=== PATIENT | male | born 1945 | race Caucasian/White ===

== ENCOUNTER → 2018-10-23 10:58 | Outpatient (CLI) | payer MEDICARE, SELFPAY ==
[2018-10-23 17:25] LABS: Absolute Lymphocyte Count 1.87 X10^3/ul (0.83-4.51); Absolute Neutrophil Count 5.1 X10^3/uL (2.0-7.7); Basophil# 0.04 X10^3/uL; Basophil% 0.5 % (0-1); Eosinophil# 0.29 X10^3/uL; Eosinophils% 3.6 % (0-5); Hematocrit 41.7 % (40-54); Hemoglobin 13.2 g/dl (13.0-16.5); Lymphocyte # 1.87 X10^3/ul (4.0); Lymphocyte % 23.4 % (19-41); Mean Corp Hgb Conc 31.7 g/gl (32-36); Mean Corpuscular Hgb 29.5 pg (27.0-32.0); Mean Corpuscular Volume 93.3 fL (80-94); Mean Platelet Vol. 9.2 fl (6.2-12.0); Monocyte# 0.69 X10^3/uL; Monocyte% 8.6 % (0-10); Neutrophil % 63.8 % (47-70); Platelet Count 305 K/mm3 (150-450); RBC Distribution Width CV 14.3 % (11.6-14.6); RBC Distribution Width SD 48.6 fl (35.1-43.9); Red Blood Count 4.47 M/mm3 (4.6-6.2)
[2018-10-23 17:29] LABS: POSITIVE COUNT NO; POSITIVE DIFFERENTIAL NO; POSITIVE MORPHOLOGY NO
[2018-10-23 17:39] LABS: ALB/GLOB Ratio 0.9 RATIO (0.9-2.4); AST(SGOT) 16 U/L (15-37); Alanine Aminotransfer ALT/SGPT 21 U/L (16-61); Albumin, Serum 3.8 g/dL (3.2-5.0); Alkaline Phosphatase 72 U/L (45-117); Anion Gap 11 (5-15); BUN 23 mg/dL (7-18); BUN/Creat Ratio 16.2 RATIO (10-20); Chloride 104 mmol/L (98-107); Cholesterol 183 mg/dL (200); Creatinine, Serum 1.42 mg/dL (0.70-1.30); EST Glomerular Filtration Rate 52 mL/min (>60); Est Glom Filt Rate - Afr Amer 63 mL/min (>60); Globulin 4.2 g/dL (2.2-4.2); Glucose 85 mg/dL (74-106); High Density Lipoprotein 42 mg/dL; Potassium 3.9 mmol/L (3.5-5.1); Sodium Level 139 mmol/L (136-145); Triglycerides 137 mg/dL; Very Low Density Lipoprotein 27 mg/dL (5-40)
== END ==
PROVIDERS: Family Provider Family Medicine; PCP Family Medicine; Visit Provider Family Medicine
DX: Z00.00 Encounter for general adult medical examination without abnormal findings (principal); I10 Essential (primary) hypertension
CPT/HCPCS: 36415; 80053; 80061; 85025

== ENCOUNTER → 2019-10-24 09:11 | Outpatient (CLI) | payer MEDICARE, SELFPAY ==
[2019-10-24 12:18] LABS: Absolute Neutrophil Count 4.8 X10^3/uL (2.0-7.7); Basophil# 0.09 X10^3/uL; Basophil% 1.1 % (0-1); Eosinophil# 0.39 X10^3/uL; Eosinophils% 4.9 % (0-5); Hematocrit 40.5 % (40-54); Hemoglobin 13.1 g/dL (13.0-16.5); Lymphocyte % 22.4 % (19-41); Mean Corp Hgb Conc 32.3 g/dL (32-36); Mean Corpuscular Hgb 29.8 pg (27.0-32.0); Mean Platelet Vol. 8.7 fl (6.2-12.0); Monocyte# 0.92 X10^3/uL; Monocyte% 11.5 % (0-10); NRBC Flagged by Analyzer 0 % (0-5); Neutrophil % 59.9 % (47-70); Platelet Count 323 K/mm3 (150-450); RBC Distribution Width CV 13.5 % (11.6-14.6); RBC Distribution Width SD 45.6 fl (35.1-43.9)
[2019-10-24 13:04] LABS: ALB/GLOB Ratio 0.9 RATIO (0.9-2.4); AST(SGOT) 18 U/L (15-37); Alanine Aminotransfer ALT/SGPT 25 U/L (16-61); Albumin, Serum 3.8 g/dL (3.2-5.0); Alkaline Phosphatase 70 U/L (45-117); Anion Gap 8 (5-15); BUN 30 mg/dL (7-18); BUN/Creat Ratio 20.5 RATIO (10-20); Calcium,Total 9.5 mg/dL (8.5-10.1); Chloride 102 mmol/L (98-107); Creatinine, Serum 1.46 mg/dL (0.70-1.30); EST Glomerular Filtration Rate 50 mL/min (>60); Est Glom Filt Rate - Afr Amer 60 mL/min (>60); Globulin 4.4 g/dL (2.2-4.2); Glucose 87 mg/dL (74-106); Potassium 4.1 mmol/L (3.5-5.1); Protein, Total 8.2 g/dL (6.4-8.2); Sodium Level 136 mmol/L (136-145)
== END ==
PROVIDERS: PCP Family Medicine; Visit Provider Family Medicine
DX: N18.3 Chronic kidney disease, stage 3 (moderate) (principal); K22.2 Esophageal obstruction
CPT/HCPCS: 36415; 80053; 85025

== ENCOUNTER → 2020-01-17 07:55 | Outpatient (CLI) | payer MEDICARE, SELFPAY ==
--- NOTE | 2020-01-17 08:10 | RAD_ITS ---
STUDY: X-RAY - ESOPHAGUS (BARIUM SWALLOW) WITH FLUOROSCOPY REASON FOR EXAM: Male, 74 years old. DYSPHAGIA X6-7 YEARS AND GETTING WORSE -- HX STOMACH SURGERY WITH SURGERY 1978 -- 16 FLUORO IMAGES, 31 FLUORO SEC, 11.17mGy TECHNIQUE: 60 view(s) of the esophagus were obtained following swallowing of barium. FLUOROSCOPY TIME (if supplied): (0:31) minutes/seconds COMPARISON: None. FINDINGS: There is no demonstrated esophageal foreign body. There is evidence of a small sliding hiatal hernia without gastroesophageal reflux. There is a weblike stenosis at the gastroesophageal junction. The patient ingest a 12 mm tablet of barium. The tablet is trapped at the gastroesophageal junction at the level of the weblike stenosis. Surgical clips are seen in the right upper quadrant and epigastric region. There is atherosclerotic calcification of the aortic arch with tortuosity of the descending aorta. Normal visualized pulmonary parenchyma. Normal visualized osseous structures of the thorax. RAD/Esophagus Dual Contrast IMPRESSION: Weblike stenosis at the gastroesophageal junction with the trapping of a 12 mm tablet of barium at that site. Electronically Signed: Priyank Pleitez, at 10:00 EDT , Service support ,
== END ==
PROVIDERS: PCP Family Medicine; Referring Provider Internal Medicine Gastroenterology; Visit Provider Internal Medicine Gastroenterology
DX: R13.10 Dysphagia, unspecified (principal)
CPT/HCPCS: 74220; 74221

== ENCOUNTER → 2023-01-12 | Outpatient (CLI) | payer MEDICARE, SELFPAY ==
[2023-01-12 12:19] LABS: Absolute Lymphocyte Count 1.59 X10^3/uL (0.83-4.51); Absolute Neutrophil Count 4.2 X10^3/uL (2.0-7.7); Basophil# 0.06 X10^3/uL; Basophil% 0.9 % (0-1); Eosinophil# 0.26 X10^3/uL; Eosinophils% 3.7 % (0-5); Hematocrit 36.4 % (40-54); Hemoglobin 11.5 g/dL (13.0-16.5); Lymphocyte # 1.59 X10^3/ul (0.83-4.51); Lymphocyte % 22.7 % (19-41); Mean Corp Hgb Conc 31.6 g/dL (32-36); Mean Corpuscular Hgb 28.7 pg (27.0-32.0); Mean Corpuscular Volume 90.8 fL (80-94); Mean Platelet Vol. 9.3 fl (6.2-12.0); Monocyte# 0.83 X10^3/uL; Monocyte% 11.9 % (0-10); NRBC Flagged by Analyzer 0 % (0-5); Neutrophil # 4.19 X10^3/uL (2.7-7.7); Neutrophil % 59.8 % (47-70); Platelet Count 292 K/mm3 (150-450); RBC Distribution Width CV 14.7 % (11.6-14.6); RBC Distribution Width SD 49.1 fl (35.1-43.9); Red Blood Count 4.01 M/mm3 (4.6-6.2)
[2023-01-12 12:32] LABS: Vitamin B12 572 pg/mL (211-911)
[2023-01-12 12:43] LABS: Protein, Urine (Random) 19.7 mg/dL (<11.9); Protein:Creat Ratio 228 mg/g CRE (0-200)
[2023-01-12 12:48] LABS: ALB/GLOB Ratio 0.9 RATIO (0.9-2.4); AST(SGOT) 22 U/L (15-37); Alanine Aminotransfer ALT/SGPT 21 U/L (16-61); Albumin, Serum 3.7 g/dL (3.2-5.0); Alkaline Phosphatase 78 U/L (45-117); Anion Gap 9 (5-15); BUN 28 mg/dL (7-18); BUN/Creat Ratio 16.8 RATIO (10-20); Calcium,Total 9.4 mg/dL (8.5-10.1); Chloride 104 mmol/L (98-107); Creatinine, Serum 1.67 mg/dL (0.70-1.30); EST Glomerular Filtration Rate 42 mL/min (>60); Est Glom Filt Rate - Afr Amer 51 mL/min (>60); Ferritin 86 ng/mL (26-388); Globulin 4.2 g/dL (2.2-4.2); Glucose 95 mg/dL (74-106); Potassium 4.6 mmol/L (3.5-5.1); Protein, Total 7.9 g/dL (6.4-8.2); Sodium Level 137 mmol/L (136-145)
== END | disposition home or self-care (01) ==
LOC: BFHLAB 09:00
PROVIDERS: PCP Family Medicine; Referring Provider Family Medicine; Visit Provider Family Medicine
DX: Z00.00 Encounter for general adult medical examination without abnormal findings (principal); R53.83 Other fatigue; D64.9 Anemia, unspecified
CPT/HCPCS: 36415; 80053; 82570; 82607; 82728; 84156; 85025

== ENCOUNTER → 2023-01-25 | Outpatient (CLI) | payer MEDICARE, SELFPAY ==
--- NOTE | 2023-01-25 12:32 | US_ITS ---
EXAM: US RETROPERITONEAL LIMITED, RENAL CLINICAL INDICATION: CHRONIC KIDNEY DISEASE TECHNIQUE: Limited grayscale and color Doppler sonographic evaluation of the retroperitoneum was performed. COMPARISON: No relevant prior studies available. FINDINGS: RIGHT KIDNEY: Isoechoic cortex with respect to liver, normal variation versus medical renal disease. Right kidney is 10 cm x 5.2 cm x 5.3 cm with normal cortical thickness. Mild hydronephrosis, renal pelvis roughly 2 cm AP and mildly dilated calyces. LEFT KIDNEY: Isoechoic cortex. 10.9 cm x 5.9 cm x 5 cm. Mild hydronephrosis, renal pelvis roughly 1.3 cm AP. BLADDER: Moderately distended initially, 9.9 cm maximum diameter and calculated volume 302 cc. Mild to moderate postvoid bladder residual of 49 cc. Bilateral ureteral jets are seen in the bladder on color Doppler exam, evidence against a high-grade ureter obstruction. US/Kidney and Bladder IMPRESSION: Mild bilateral hydronephrosis, no change with voiding. Uncertain chronicity and etiology. Bilateral ureteral jets were demonstrated in the bladder, evidence against a high-grade ureter obstruction. Isoechoic renal cortex, nonspecific, normal variation versus medical renal disease. Normal renal size. Electronically Signed: Joseline Ramey MD at 5:39 EDT ,
== END | disposition home or self-care (01) ==
PROVIDERS: PCP Family Medicine; Referring Provider Internal Medicine Nephrology; Visit Provider Internal Medicine Nephrology
DX: N18.32 Chronic kidney disease, stage 3b (principal)
CPT/HCPCS: 76770

== ENCOUNTER → 2023-03-27 | Outpatient (CLI) | payer MEDICARE, SELFPAY ==
[2023-03-27 18:06] LABS: PSA,Total - Annual Screen 0.87 ng/mL (0.00-4.00)
== END | disposition home or self-care (01) ==
LOC: LAB 16:00
PROVIDERS: PCP Family Medicine; Referring Provider Urology; Visit Provider Urology
DX: Z12.5 Encounter for screening for malignant neoplasm of prostate (principal)
CPT/HCPCS: 36415; 84153; G0103

== ENCOUNTER → 2023-03-30 | Outpatient (CLI) | payer MEDICARE, SELFPAY ==
[2023-03-30 15:07] LABS: Hematocrit 34.2 % (40-54); Hemoglobin 10.9 g/dL (13.0-16.5); Mean Corp Hgb Conc 31.9 g/dL (32-36); Mean Corpuscular Hgb 29.1 pg (27.0-32.0); Mean Corpuscular Volume 91.2 fL (80-94); Platelet Count 298 K/mm3 (150-450); RBC Distribution Width CV 14.4 % (11.6-14.6); RBC Distribution Width SD 48.5 fl (35.1-43.9); Red Blood Count 3.75 M/mm3 (4.6-6.2); White Blood Count 7.4 K/mm3 (4.4-11.0)
[2023-03-30 15:37] LABS: Albumin, Serum 3.3 g/dL (3.2-5.0); BUN 33 mg/dL (7-18); BUN/Creat Ratio 15.6 RATIO (10-20); Chloride 106 mmol/L (98-107); Creatinine, Serum 2.11 mg/dL (0.70-1.30); EST Glomerular Filtration Rate 32 mL/min (>60); Est Glom Filt Rate - Afr Amer 39 mL/min (>60); Glucose 141 mg/dL (74-106); Sodium Level 139 mmol/L (136-145)
[2023-03-30 15:40] LABS: Protein, Urine (Random) < 6.0 mg/dL (<11.9); Protein:Creat Ratio 143 mg/g CRE (0-200)
[2023-03-30 15:43] LABS: Vitamin D,25 Hydroxy 63.8 ng/mL
[2023-03-31 07:29] LABS: PTHIN 19.5 pg/mL (18.4-80.1)
[2023-04-03 13:07] LABS: PROEL- A/G Ratio 1.1 (0.7-1.7); PROEL- Albumin 3.5 g/dL (2.9-4.4); PROEL- Alpha-1 Globulin 0.2 g/dL (0.0-0.4); PROEL- Alpha-2 Globulin 0.6 g/dL (0.4-1.0); PROEL- Beta Globulin 1.2 g/dL (0.7-1.3); PROEL- Gamma Globulin 1.1 g/dL (0.4-1.8); PROEL- Globulin, Total 3.2 g/dL (2.2-3.9); PROEL- TOTAL PROTEIN 6.7 g/dL (6.0-8.5)
== END | disposition home or self-care (01) ==
LOC: LAB 14:05
PROVIDERS: PCP Family Medicine; Referring Provider Internal Medicine Nephrology; Visit Provider Internal Medicine Nephrology
DX: N18.32 Chronic kidney disease, stage 3b (principal)
CPT/HCPCS: 36415; 80069; 82306; 82570; 83970; 84156; 84165; 85027

== ENCOUNTER → 2023-04-05 | Outpatient (CLI) | payer MEDICARE, SELFPAY ==
--- NOTE | 2023-04-05 07:51 | CT_ITS ---
STUDY: CT ABDOMEN AND PELVIS WITHOUT CONTRAST REASON FOR EXAM: Male, 78 years old. SCREENING PROSTATE. 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 Sagittal and coronal images were reconstructed. Individualized dose optimization techniques were used for this CT. COMPARISON: None. FINDINGS: Mild degree of increased linear markings at the right lung base suggest some mild scarring. Coronary artery calcification. Tiny calcified granuloma in the dome of the right lobe liver adjacent to the right hemidiaphragm. Surgical clips are seen along the anterior aspect of the liver adjacent to the right hemidiaphragm. The gallbladder is not visualized and most likely has been surgically resected. Normal spleen. Normal pancreas. Normal bilateral adrenal glands. Normal right kidney. Normal left kidney. Surgical clips are seen in the right perinephric region. There is a small hiatal hernia. Normal small intestine. There are scattered colonic diverticula consistent with diverticulosis. There are surgical clips in the region of the appendix consistent with a prior appendectomy. There is diffuse atherosclerotic calcification of the abdominal aorta, without a demonstrated aneurysm. Normal inferior vena cava. Surgical clips are seen along the right side of the retroperitoneum most likely secondary to prior lymph node dissection. This extends down into the renal hilus. Normal urinary bladder. The prostate measures 4 cm x 5.9 cm. This causes indentation at the bladder base. Normal abdominal wall. There are diffuse degenerative changes of the visualized lumbar spine. CT/Abdomen/Pelvis without Cont IMPRESSION: Findings suggestive of prior right retroperitoneal lymph node dissection. Surgical clips are also seen in the region of the right renal fossa. Prostatic enlargement. Electronically Signed: Priyank Pleitez MD at 14:12 EDT ,
== END | disposition home or self-care (01) ==
PROVIDERS: PCP Family Medicine; Referring Provider Urology; Visit Provider Urology
DX: Z12.5 Encounter for screening for malignant neoplasm of prostate (principal)
CPT/HCPCS: 74176

== ENCOUNTER → 2023-07-04 | Outpatient (CLI) | payer MEDICARE, SELFPAY ==
[2023-07-04 17:36] LABS: Absolute Lymphocyte Count 0.86 X10^3/uL (0.83-4.51); Absolute Neutrophil Count 6.1 X10^3/uL (2.0-7.7); Basophil# 0.05 X10^3/uL; Basophil% 0.6 % (0-1); Eosinophil# 0.07 X10^3/uL; Eosinophils% 0.9 % (0-5); Hematocrit 31.6 % (40-54); Hemoglobin 10.2 g/dL (13.0-16.5); Lymphocyte # 0.86 X10^3/ul (0.83-4.51); Lymphocyte % 11.1 % (19-41); Mean Corp Hgb Conc 32.3 g/dL (32-36); Mean Corpuscular Hgb 28.7 pg (27.0-32.0); Mean Corpuscular Volume 88.8 fL (80-94); Mean Platelet Vol. 9.9 fl (6.2-12.0); Monocyte# 0.68 X10^3/uL; Monocyte% 8.7 % (0-10); NRBC Flagged by Analyzer 0 % (0-5); Neutrophil # 6.09 X10^3/uL (2.7-7.7); Neutrophil % 78.3 % (47-70); Platelet Count 263 K/mm3 (150-450); RBC Distribution Width CV 14.5 % (11.6-14.6); RBC Distribution Width SD 46.9 fl (35.1-43.9); Red Blood Count 3.56 M/mm3 (4.6-6.2); White Blood Count 7.8 K/mm3 (4.4-11.0)
[2023-07-04 18:02] LABS: ALB/GLOB Ratio 0.9 RATIO (0.9-2.4); AST(SGOT) 15 U/L (15-37); Alanine Aminotransfer ALT/SGPT 21 U/L (16-61); Albumin, Serum 3.3 g/dL (3.2-5.0); Alkaline Phosphatase 72 U/L (45-117); Anion Gap 7 (5-15); BUN 38 mg/dL (7-18); BUN/Creat Ratio 18.8 RATIO (10-20); Calcium,Total 9.2 mg/dL (8.5-10.1); Chloride 109 mmol/L (98-107); Creatinine, Serum 2.02 mg/dL (0.70-1.30); EST Glomerular Filtration Rate 34 mL/min (>60); Est Glom Filt Rate - Afr Amer 41 mL/min (>60); Globulin 3.8 g/dL (2.2-4.2); Glucose 126 mg/dL (74-106); Potassium 4.1 mmol/L (3.5-5.1); Protein, Total 7.1 g/dL (6.4-8.2); Sodium Level 135 mmol/L (136-145)
== END | disposition home or self-care (01) ==
LOC: BFHLAB 14:29
PROVIDERS: PCP Nurse Practitioner Family; Referring Provider Nurse Practitioner Family; Visit Provider Nurse Practitioner Family
DX: R06.02 Shortness of breath (principal); N18.31 Chronic kidney disease, stage 3a
CPT/HCPCS: 36415; 80053; 85025

== ENCOUNTER → 2023-07-12 | Outpatient (CLI) | payer MEDICARE, SELFPAY ==
--- NOTE | 2023-07-12 11:36 | RAD_ITS ---
STUDY: X-RAY CHEST REASON FOR EXAM: Male, 78 years old. Shortness of breath. TECHNIQUE: Frontal and lateral views of the chest. COMPARISON: None. FINDINGS: Cardiomegaly, marked aortic tortuosity with calcification, prominent central pulmonary arteries, diffuse interstitial pattern with a basilar predominance and bilateral moderate-sized pleural effusions. Findings compatible with interstitial edema/congestive failure and follow-up chest imaging to resolution recommended. Multiple clips projected over the right upper abdomen. RAD/Chest PA and Lateral IMPRESSION: Findings compatible with interstitial edema/congestive failure and follow-up chest imaging to resolution recommended. Electronically Signed: Osiel Rain MD at 11:54 EST ,
== END | disposition home or self-care (01) ==
PROVIDERS: PCP Nurse Practitioner Family; Referring Provider Nurse Practitioner Family; Visit Provider Nurse Practitioner Family
DX: R06.02 Shortness of breath (principal)
CPT/HCPCS: 71046

== ENCOUNTER 2023-07-26 16:30 | Inpatient (IN) | payer MEDICARE, SELFPAY ==
[2023-07-26 16:32] VITALS: BP 100/65; PULSE 86; RESP 19; TEMP 36.2; O2SAT 94; BMI 24.3
--- NOTE | 2023-07-26 17:09 | NURSING ---
NO OLD EKGS
--- NOTE | 2023-07-26 18:10 | RAD_ITS ---
STUDY: X-RAY CHEST REASON FOR EXAM: Male, 78 years old. , CAMP[place]LL, bilateral rales, pedal edema and orthopnea TECHNIQUE: PA and lateral views of the chest. COMPARISON: 07/12/2023 FINDINGS: EKG leads project over the chest. Airspace disease in the bilateral lung bases are worse with increasing obscuration of the diaphragms and costophrenic angles. No pneumothorax. Normal size heart. Normal mediastinum and joe. There is atherosclerotic calcification of the aortic arch with tortuosity. There are diffuse degenerative changes of the visualized thoracic spine. There is no demonstrated abnormality of the visualized soft tissue structures of the upper abdomen. RAD/Chest PA and Lateral IMPRESSION: 1. Worse bibasilar airspace disease and pleural effusions. Electronically Signed: River Hdz MD ([place]) at 18:35 EST ,
[2023-07-26 18:25] LABS: Absolute Lymphocyte Count 0.53 X10^3/uL (0.83-4.51); Absolute Neutrophil Count 12.5 X10^3/uL (2.0-7.7); Basophil# 0.01 X10^3/uL; Basophil% 0.1 % (0-1); Eosinophil# 0.01 X10^3/uL; Eosinophils% 0.1 % (0-5); Hematocrit 32.1 % (40-54); Hemoglobin 10.4 g/dL (13.0-16.5); Lymphocyte # 0.53 X10^3/ul (0.83-4.51); Lymphocyte % 3.7 % (19-41); Mean Corp Hgb Conc 32.4 g/dL (32-36); Mean Corpuscular Hgb 27.7 pg (27.0-32.0); Mean Corpuscular Volume 85.6 fL (80-94); Mean Platelet Vol. 12.1 fl (6.2-12.0); Monocyte# 1.15 X10^3/uL; NRBC Flagged by Analyzer 0.6 % (0-5); Neutrophil # 12.49 X10^3/uL (2.7-7.7); Neutrophil % 87.3 % (47-70); POSITIVE DIFFERENTIAL YES; Platelet Count 124 K/mm3 (150-450); RBC Distribution Width CV 14.8 % (11.6-14.6); RBC Distribution Width SD 45.6 fl (35.1-43.9); Red Blood Count 3.75 M/mm3 (4.6-6.2); White Blood Count 14.3 K/mm3 (4.4-11.0)
[2023-07-26 18:28] LABS: Differential Indicated SCAN CRITERIA MET
[2023-07-26 18:44] LABS: Differential Comment SCANNED
[2023-07-26 18:56] LABS: ALB/GLOB Ratio 0.7 RATIO (0.9-2.4); AST(SGOT) 62 U/L (15-37); Alanine Aminotransfer ALT/SGPT 129 U/L (16-61); Albumin, Serum 2.8 g/dL (3.2-5.0); Alkaline Phosphatase 268 U/L (45-117); Anion Gap 11 (5-15); BUN 104 mg/dL (7-18); BUN/Creat Ratio 32.3 RATIO (10-20); Calcium,Total 8.6 mg/dL (8.5-10.1); Chloride 98 mmol/L (98-107); Creatinine, Serum 3.22 mg/dL (0.70-1.30); EST Glomerular Filtration Rate 20 mL/min (>60); Est Glom Filt Rate - Afr Amer 24 mL/min (>60); Glucose 127 mg/dL (74-106); Potassium 4.5 mmol/L (3.5-5.1); Protein, Total 6.8 g/dL (6.4-8.2); Sodium Level 134 mmol/L (136-145); Troponin-I HS 135 pg/mL (3.0-78.0)
--- NOTE | 2023-07-26 19:58 | EDS_ITS ---
HPI History of Present Illness Chief Complaint: Shortness of Breath Detail of Chief Complaint: dyspnea, swelling, cough, subjective fever Informant: patient and family Onset/Context/Timing Onset: Weeks (A couple of weeks) Context: Gradual Onset Timing: Continuous and Waxes and wanes Quality: Dyspnea, dyspnea on exertion, cough that is nonproductive Location: Respiratory Current Severity: Mild Maximum Severity: Severe Worsened by: Activity Relieved by: Nothing Associated Symptoms Associated Symptoms: Subjective fever Narrative Narrative: Patient is a 78-year-old male who is hard of hearing and a poor informant. He was brought in by son because of shortness of breath over the past couple of weeks. He has had poor p.o. intake. He sleeps with 1 pillow. He denies PND. He denies chest discomfort. His cough according to his son is nonproductive. He has complained of subjective fever. There is been no shaking chills. He denies headache, visual, ocular auditory symptoms. He denies abdominal pain, nausea, vomiting or diarrhea. Patient denies dysuria, frequency or urgency. Patient denies hematuria. He was placed on Lasix for his edema. This was discontinued by his staff reporter because of chronic kidney disease. Prior similar symptoms: No Recent Illness/Hospitalization: No PFSH PFSH Allergy/AdvReac Type Severity Reaction Status Date / Time No Known Allergies Allergy Verified 07/26/23 19:53 Social History (Updated 07/26/23 @ 20:[address] Garrett Estrada MD) household members: none Smoking Status: Never smoker substance use type: does not use ROS ROS ED Constitutional Constitutional ED: Reports fever(s) and subjective; Denies chills, sweats or weight loss Eyes Eyes: Denies blurry vision, change in vision or diplopia ENT ENT ED: Denies ear pain, rhinorrhea or sore throat Cardiovascular Cardiovascular: Reports palpitations; Denies chest pain, orthopnea, paroxysmal nocturnal dyspnea or racing heartbeat Respiratory/Chest Respiratory/Chest: Reports cough, dyspnea and dyspnea on exertion; Denies orthopnea, paroxysmal nocturnal dyspnea or sputum Gastrointestinal Gastrointestinal: Denies abdominal pain, diarrhea, nausea or vomiting Genitourinary Genitourinary ED: Denies dysuria, hematuria or urinary frequency Musculoskeletal Musculoskeletal: Denies arthralgias, back pain or myalgias Integumentary Denies rash Neurologic Neurologic: Reports weakness; Denies headache(s) or paresthesias Psychiatric Psychiatric: Denies anxiety Hematologic/Lymphatic Hematologic/Lymphatic: Reports systems reviewed and no addt'l complaints, except as documented EXAM Physical Exam Const Vital Signs: 07/26/23 16:32 07/26/23 17:18 07/26/23 20:54 Temperature 97.2 F L Temperature Source Temporal Pulse Rate 86 111 H Respiratory Rate 19 H 16 Respiratory Effort Normal Non-Labored Short of Breath Respiratory Pattern Normal Blood Pressure 100/65 97/65 Blood Pressure Mean 76 75 Pulse Ox 94 95 Oxygen Delivery Method Room Air Room Air Room Air Oxygen Flow Rate (L/min) 07/26/23 21:46 07/26/23 21:47 Temperature Temperature Source Pulse Rate 95 Respiratory Rate 24 H Respiratory Effort Respiratory Pattern Blood Pressure 98/70 Blood Pressure Mean 79 Pulse Ox 87 97 Oxygen Delivery Method Room Air Nasal Cannula Oxygen Flow Rate (L/min) 2 Positive well developed and cachectic Constitutional Narrative: And is tachypneic. There is no retractions. There is slight use of accessory muscles. General Appearance ED: well developed, cachectic and pallor; Negative for cyanotic or diaphoretic Nutritional Appearance: cachectic HEENT Reports dry mucous membranes HEENT Narrative: Head is atraumatic and normocephalic. Ears are normal. Nares are patent. Posterior pharynx is normal. Mouth ED: Yes dry mucous membranes Mouth: dry mucous membranes Eyes PERRL and EOMs intact bilaterally General Eye ED: Negative for pale conjunctiva or scleral icterus Neck no lymphadenopathy, supple and no JVD Chest Wall inspection of chest normal and palpation of chest normal Resp No normal respiratory effort and No clear to auscultation bilaterally Auscultation: rales bilateral lower Cardio regular rate, S1 normal heart sound, S2 normal heart sound and no murmurs Rhythm: abnormal rhythm irregularly irregular (Heart is irregular and most likely due to frequent premature ventricular beats.) GI normal to inspection, nondistended, normoactive bowel sounds, non-tender, non-d istended and no masses; Negative for hepatosplenomegaly Auscultation: hypoactive bowel sounds Palpation: soft Back/Spine no CVA tenderness Thoracic Spine / Upper Back: Negative for thoracic spinal tenderness Lumbar Spine / Lower Back: Negative for lumbar spinal tenderness Extremity Extremity Narrative: Patient has marked edema of the lower extremities. General Extremety ED: Yes edema General Extremity: edema Neuro oriented x3, CN's II-XII intact bilaterally and no sensory deficits noted Sensorium / Orientation: alert Psych mental status grossly normal Skin no rashes or lesions noted and no wounds General Skin Exam: pallor; Negative for elasticity normal or jaundice Sepsis Attestation Date exam was performed: 07/26/23 Time exam was performed: 21:30 Fluid Resuscitation Fluid resuscitation indicated?: Yes Reason for lesser fluid bolus:: Concern for fluid overload, Heart failure and Renal Failure Sepsis Note Date exam was performed: 07/26/23 Time exam was performed: 21:58 Sepsis Attestation: Sepsis re-evaluation was performed MDM MDM MDM Narrative Medical decision making narrative: Functional diagnosis includes cardiac ischemia, congestive heart failure, pneumonia, pulmonary embolus. Will obtain EKG, chest x-ray and appropriate blood work. Doubt pulmonary embolus since he has bilateral rales clinically concern for CHF versus pneumonia. History & Record Review Discussion w/independent historian: Patient and Family Lab Data Attestation: I reviewed the patient's lab results. Lab results narrative: White count is elevated at 14.3 thousand with shift. The anemia. There is mild anemia with normal indices. Competence of metabolic panel reveals a BUN of 104 and a creatinine of 3.22. Creatinine is elevated from baseline. Troponins elevated at 135. ALT and alkaline phosphatase are elevated as well at 1 29-68. This may be due to fluid overload. Labs: Laboratory Results - last 24 hr 07/26/23 07/26/23 18:08 21:08 WBC 14.3 H RBC 3.75 L Hgb 10.4 L Hct 32.1 L MCV 85.6 MCH 27.7 MCHC 32.4 RDW Std Deviation 45.6 H RDW Coeff of Yue 14.8 H Plt Count 124 L MPV 12.1 H Immature Gran % (Auto) 0.800 Neut % (Auto) 87.3 H Lymph % (Auto) 3.7 L [place] % (Auto) 8.0 Eos % (Auto) 0.1 Baso % (Auto) 0.1 Absolute Neuts (auto) 12.5 H Absolute Lymphs (auto) 0.53 L Nucleated RBC % 0.6 Differential Comment SCANNED Sodium 134 L Potassium 4.5 Chloride 98 Carbon Dioxide 25.0 Anion Gap 11 BUN 104 H* Creatinine 3.22 H Estim Creat Clear Calc 18.60 Est GFR (MDRD) Af Amer 24 L Est GFR (MDRD) Non-Af 20 L BUN/Creatinine Ratio 32.3 H Glucose 127 H Lactic Acid 2.2 H* Calcium 8.6 Total Bilirubin 1.30 H AST 62 H ALT 129 H Alkaline Phosphatase 268 H Troponin I High Sens 135 H* Total Protein 6.8 Albumin 2.8 L Globulin 4.0 Albumin/Globulin Ratio 0.7 L COVID test was negative. Influenza was positive for type A. Patient will receive Tamiflu. Because of his renal failure will adjust dose. Radiography Chest X-Ray - ED: 1 View (Single view portable chest x-ray reveals the right subclavian line to be in proper position. Is no its pneumothorax. Bilateral infiltrates as noted on initial x-ray noted.), 2 View and Read by ED Physician (Independently reviewed and interpreted by me at 1830 as bilateral interstitial pneumonia. There may be a small effusion on the left. Cardiac silhouette is obscured. Mediastinum is unremarkable. Osseous structures are unremarkable.) Diagnostic Testing: Clinical Impression(s) from Imaging Studies Chest X-Ray 07/26/23 18:10 IMPRESSION: 1. Worse bibasilar airspace disease and pleural effusions. Electronically Signed: River Hdz MD ([place]) at 18:35 EST , Chest X-Ray 07/26/23 20:10 IMPRESSION: Small bilateral pleural effusions and bibasilar consolidation. No evidence for pneumothorax status post right central line placement with tip in distal superior vena cava Electronically Signed: Ruben Henry MD at 20:39 EST , EKG Initial EKG: Attestation: I personally reviewed and interpreted this EKG as follows: Interpretation: Sinus Rhythm (Is 100. There are frequent PVCs and couplets. IL interval is 160 ms. QRS duration 98 ms. QT durations are 64 ms. [place] is to the left. There is evidence of LVH with ST-T wave changes.) Management Discussion w/another healthcare provider: Hospitalist and Pharmacist (Regarding proper dose of Tamiflu with renal failure.) Treatment and Re-Evaluation :: Based on the x-ray finding elevated white count patient was treated with Rocephin and azithromycin for bilateral lower lobe community-acquired pneumonia. Blood cultures were ordered prior to administration of antibiotics. I was informed that nursing staff was not able to establish IV. Attempt was made at right and left external jugular. Vessels were cannulated however when fluid was infused in the vessel below. In light of this patient was consented for central line. Son signed since patient does not have capacity. He was informed of my complications and complications that can occur. He was given opportunity ask questions. None were asked. He did sign consent form. Right subclavian line was placed. Patient was prepped draped sterile manner. Hospital protocol was followed. Nurse was wearing mask and In room while assisting me. The area was prepped draped with ChloraPrep. Patient was draped. The area was anesthetized with 1% lidocaine for local titration. The right subclavian line was cannulated on first attempt. Blood was aspirated on the way out which means there is a puncture wound on the posterior wall. Blood was aspirated from all 3 ports and all 3 ports were flushed. Chest x-ray was obtained. Protocol. I was informed by nurse at approximately 2100 that the blood cultures and lactate were not obtained prior to the administration of IV antibiotics. Patient was started on Tamiflu since influenza was positive for type A. spoke with the hospitalist. Patient be admitted to ICU. Since patient had drop in blood pressure. He received 500 cc bolus. Concern for fluid overload. Procedures Other Procedures Procedure(s): Subclavian line. Documented under the evaluation portion of the medical record Critical Care Time Critical Care Time: Yes Critical care time (excluding procedures): 30-74 minutes (32), Including time spent: (History, physical, documentation, discussion with son), Discussing w/Patient &/or Family/Fancy Packer (Results of laboratory tests and need for admission), Discussing w/Consultants (Hospitalist) and Performing Direct Patient Care at Bedside (Attempt at right and left external jugular and bedside care) Discharge Plan Dx/Rx/DC Orders Clinical Impression: Anemia in chronic illness, Encephalopathy, Pneumonia of both lower lobes, Acute kidney injury superimposed on CKD, Hypoalbuminemia, Type A influenza, Acute prerenal azotemia, Lymphedema of both lower extremities, Acute hypotension, Acidosis, lactic, Severe sepsis with acute organ dysfunction Disposition Disposition: Acute Care Hospital [facility]
--- NOTE | 2023-07-26 20:10 | RAD_ITS ---
STUDY: X-RAY CHEST REASON FOR EXAM: Male, 78 years old. Status post right subclavian line placement TECHNIQUE: AP portable COMPARISON: July 26, 2023 6:13 PM FINDINGS: Small bilateral pleural effusions and bibasilar consolidation.. Central line is in place on the right with tip in distal superior vena cava Normal size heart. Normal mediastinum and joe. Normal visualized pulmonary arteries. Normal visualized aortic arch and descending thoracic aorta. Dorsal spine demonstrates scoliosis and degenerative change. There are degenerative changes of the shoulders.. Normal visualized ribs, and clavicles.. Postsurgical changes in the right upper quadrant of the abdomen. RAD/Chest 1 View (Portable) IMPRESSION: Small bilateral pleural effusions and bibasilar consolidation. No evidence for pneumothorax status post right central line placement with tip in distal superior vena cava Electronically Signed: Ruben Henry MD at 20:39 EST ,
[2023-07-26] MEDS: Ceftriaxone 1 GM/50 ML BAG IV (20:29)
[2023-07-26] MEDS: Aspirin 81 MG TAB.CHEW 324 MG PO (20:45)
[2023-07-26 20:54] VITALS: BP 97/65; PULSE 111; RESP 16; O2SAT 95
[2023-07-26] MEDS: Azithromycin 500 MG in Dextrose 5%-Water (250mL Bag) 250 ML 250 MG IV (21:44)
[2023-07-26 21:46] VITALS: BP 98/70; PULSE 95; RESP 24; O2SAT 87
[2023-07-26 21:47] VITALS: O2SAT 97
[2023-07-26 21:47] LABS: Lactic Acid 2.2 mmol/L (0.4-1.9)
--- NOTE | 2023-07-26 21:53 | HP.PCM.HOS_ITS ---
[facility] - General General Date of Admission: 07/26/23 Date of Service: 07/26/23 Chief Complaint: Shortness of breath, cough and malaise. 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 Mr. Che is not a fully-reliable historian at this time so information was gathered from chart, computer, medical staff and the patient's son at the bedside. According to the records his symptoms began approximately 6 weeks prior to admission with a viral upper respiratory illness followed by gradual onset of dyspnea on exertion that progressed to shortness of breath at rest that became much worse over the past few days. He also complained of poor appetite over the past month and a frequent cough that was nonproductive with severe 4+ swelling in his lower extremities along with subjective fever and shortness of breath that was made worse by activity and was unrelieved by rest. He denies associated chest discomfort, chills, abdominal pain, nausea, vomiting, diarrhea, dysuria, urinary frequency, urinary urgency or hematuria. His son reported to the ER staff that he was previously on Lasix for his lower extremity edema but this was discontinued by his special needs teacher because of acute worsening of his chronic kidney disease. I personally spoke with his son at the bedside and his daughter Marisa AdornoLANDRY salcedo on the phone and updated her on his condition (and her phone number is [phone]) and she explained he had an appointment to see a fish and wildlife scientific aid in August - and she would like cardiology to be consulted this admission, which has been done. Right now he is leaning toward DNR-CCA CODE STATUS but he has not made final decision at this time. In the ER he was diagnosed with bilateral atypical pneumonia complicated by a positive test for influenza A with leukocytosis of 14.3; with an accompanying left shift, lactic acidosis of 2.2 mmol/L present on admission and hypotension with systolic blood pressure in the 70 mmHg range requiring sepsis fluid bolus and treatment under the sepsis protocol via the right subclavian central venous catheter placed in the ER compounded by an elevated troponin of 135 present on admission due to suspected acute cardiac strain and severe acute kidney injury on likely stage III-IV chronic kidney disease due to an adverse drug reaction to Lasix with clinical evidence of acute metabolic encephalopathy and he was then admitted to the ICU for ongoing care for a stay that is expected to be greater than 48 hours. PFSH Allergy/AdvReac Type Severity Reaction Status Date / Time No Known Allergies Allergy Verified 07/26/23 19:53 Social History household members: none Smoking Status: Never smoker substance use type: does not use ROS ROS Narrative Full review of systems was not possible at this time due to patient's severe acute illness and encephalopathy. Review of Systems ROS Unobtainable: due to encephalopathy Vital Signs Vital Signs Vital Signs: 07/26/23 16:32 07/26/23 17:18 07/26/23 20:54 Temperature 97.2 F L Temperature Source Temporal Pulse Rate 86 111 H Respiratory Rate 19 H 16 Respiratory Effort Normal Non-Labored Short of Breath Respiratory Pattern Normal Blood Pressure 100/65 97/65 Blood Pressure Mean 76 75 Pulse Ox 94 95 Oxygen Delivery Method Room Air Room Air Room Air Oxygen Flow Rate (L/min) 07/26/23 21:46 07/26/23 21:47 Temperature Temperature Source Pulse Rate 95 Respiratory Rate 24 H Respiratory Effort Respiratory Pattern Blood Pressure 98/70 Blood Pressure Mean 79 Pulse Ox 87 97 Oxygen Delivery Method Room Air Nasal Cannula Oxygen Flow Rate (L/min) 2 Weight Weight: 165 lb Body Mass Index (BMI) 24.3 Physical Exam Const alert, no apparent distress and average body habitus General Appearance: cooperative Orientation / Consciousness: confused HEENT normocephalic, head/scalp atraumatic, hearing grossly normal bilaterally and moist oral mucous membranes HEENT Narrative: Oropharynx dry. Eyes PERRL, EOMs intact bilaterally and conjunctivae normal Neck no lymphadenopathy, supple and no JVD Neck Narrative: Patient has bruising over the lateral sides of his neck from previous EJ attempts. There is no signs of active bleeding or infection at this time. Resp Resp Narrative: Diminished breath sounds throughout with scattered rhonchi audible from bedside. Auscultation: rhonchi Cardio regular rate and regular rhythm Cardio Narrative: Mild grade 2 out of 6 systolic ejection murmur at the lower sternal border. GI normal to inspection, nondistended, normoactive bowel sounds, soft to palpation, non-tender and non-distended Extremity Extremity Narrative: Patient has severe 4+ lower extremity pitting edema with no active signs of infection or rash at this time. Skin Skin Narrative: Patient has no evidence of rash at this time. Neuro CN's II-XII intact bilaterally, moves all extremities and no focal motor deficits Sensorium / Orientation: awake, alert, oriented to person and oriented to place Speech: speech normal Motor Exam: strength 5/5 throughout Psych affect normal Results Medical Records Data Attestation: I reviewed the patient's medical records Lab / Micro Data Attestation: I reviewed the patient's lab results. 07/26/23 18:08 07/26/23 18:08 Labs: Laboratory Results - last 24 hr 07/26/23 18:08: WBC 14.3 H, RBC 3.75 L, Hgb 10.4 L, Hct 32.1 L, MCV 85.6, MCH 27.7, MCHC 32.4, RDW Std Deviation 45.6 H, RDW Coeff of Yue 14.8 H, Plt Count 124 L, MPV 12.1 H, Immature Gran % (Auto) 0.800, Neut % (Auto) 87.3 H, Lymph % (Auto) 3.7 L, [place] % (Auto) 8.0, Eos % (Auto) 0.1, Baso % (Auto) 0.1, Absolute Neuts (auto) 12.5 H, Absolute Lymphs (auto) 0.53 L, Nucleated RBC % 0.6, Differential Comment SCANNED, Sodium 134 L, Potassium 4.5, Chloride 98, Carbon Dioxide 25.0, Anion Gap 11, BUN 104 H*, Creatinine 3.22 H, Estim Creat Clear Calc 18.60, Est GFR (MDRD) Af Amer 24 L, Est GFR (MDRD) Non-Af 20 L, BUN/Creatinine Ratio 32.3 H, Glucose 127 H, Calcium 8.6, Total Bilirubin 1.30 H, AST 62 H, ALT 129 H, Alkaline Phosphatase 268 H, Troponin I High Sens 135 H*, Total Protein 6.8, Albumin 2.8 L, Globulin 4.0, Albumin/Globulin Ratio 0.7 L 07/26/23 21:08: Lactic Acid 2.2 H* Micro: Microbiology 07/26/23 21:10 Mucosa - Nasopharyngeal Influenza Types A,B Direct FA (DANIELA) - Final Influenzae A 07/26/23 21:10 Nasal Secretion SARS-CoV-2 Antigen (Rapid) - Final Imagaing Radiology Impression Chest X-Ray 07/26/23 18:10 IMPRESSION: 1. Worse bibasilar airspace disease and pleural effusions. Electronically Signed: River Hdz MD (Brooks) at 18:35 EST , Chest X-Ray 07/26/23 20:10 IMPRESSION: Small bilateral pleural effusions and bibasilar consolidation. No evidence for pneumothorax status post right central line placement with tip in distal superior vena cava Electronically Signed: Ruben Henry MD at 20:39 EST , Assessment & Plan Assessment/Plan (1) Pneumonia of both lower lobes: QUALIFIERS: Pneumonia type: due to unspecified organism Qualified Code(s): J18.9 - Pneumonia, unspecified organism (2) Elevated troponin: (3) Acute kidney injury superimposed on CKD: (4) Encephalopathy: (5) D-dimer, elevated: PLAN: Plan 1. Bilateral atypical pneumonia with leukocytosis of 14.3 with accompanying left shift, lactic acidosis of 2.2 mmol/L present on admission and hypotension with systolic blood pressure in the ~70 mmHg range present on admission consistent with suspected sepsis with septic shock complicated by positive test for influenza A and with clinical evidence of acute hypoxic respiratory insufficiency in the setting of recent viral respiratory infection with suspected bacterial superinfection possibly due to MRSA - Admit to ICU under droplet and contact precautions for treatment under the sepsis protocol with new right subclavian line placed in the ER with the ER physician's help greatly appreciated. Continue broad-spectrum antibiotics and await culture and sensitivity data. Check venous blood gas to establish baseline this admission. Give Tylenol as needed for level 1-10 pain or fever. Finally, will give vitamin D3, vitamin C and zinc to help boost immune response. 2. Elevated troponin 135 ng/mL present on admission likely due to acute cardiac strain/non-STEMI type II with BNP greater than 5,000 consistent with AE of chronic diastolic CHF; with preserved LVEF arising from #1 in the setting of a potential cardiorenal syndrome - Continue full dose aspirin plus add Plavix, statin and IV heparin. Serialize troponin. Check echocardiogram to evaluate left ventricular ejection fraction. Check lower extremity ultrasound to evaluate for possible DVT. Finally, we will consult fish and wildlife scientific aid on-call sees patient on rounds in the a.m. for further recommendations with help appreciated in advance. 3. Acute kidney injury in the setting of likely stage III-IV chronic kidney disease likely due to adverse drug reaction to Lasix in the setting of chronic urinary obstruction with creatinine of 3.22 mg/dL and a BUN of 104 mg/dL present on admission (up from his baseline creatinine of 2.02 mg/dL and a BUN of 38 mg/dL last month) compounding #1 & #2 - Aggressively volume resuscitate and then recheck CMP in the a.m. to evaluate for improvement. Place Morales and measure strict inputs and outputs. Check CPK. Avoid potentially nephrotoxic agents. Check renal ultrasound to evaluate for potential obstruction. Finally, we will consult nephrology on-call to see this patient on rounds in a.m. with help appreciated in advance. 4. Highly elevated d-dimer of >9 with 4+LE edema suspicious for VTE adding to the pathology of #1 - #3 - We will order stat V/Q scan and change IV heparin to PE protocol. LE duplex ultrasound pending in the AM. 5. Acute metabolic encephalopathy attributable to #1 - #4 - Continue supportive care and monitor for improvement. Check TSH. Check urine drug screen to evaluate for potential reversible causes of confusion. 5. Hypoalbuminemia of 2.8 g/dL present on admission; suspicious for protein calorie malnutrition in the setting of recent viral illness ~6 weeks ago with poor appetite since that time with subsequent lower extremity edema in spite of being severely dehydrated and being in acute kidney failure likely due to third spacing fluid from his vasculature into his periphery - Check prealbumin to confirm suspicion. Add a protein meal supplement shakes when patient is able to tolerate. Finally, we will consult the primary education professor to see the patient this admission for further recommendations with help appreciated in advance. 6. Anemia of chronic disease with hemoglobin of 10.4 g/dL and moderate thrombocytopenia 124 present on admission - Noted. Follow daily CBC to ensure continued stability. 7. Essential hypertension - Hold scheduled antihypertensives at this time as patient is currently hypotensive. Give hydralazine IV as needed for systolic blood pressure greater than 160 mmHg. 8. DVT prophylaxis - Patient on IV heparin for #2. Total time: Approximately 75 minutes. Update: Patient was rechecked approximately 4 hours after admission and he was still hypotensive with a MAP of ~60 mmHg when he transferred to the ICU in spite of his fluid bolus. He was therefore started on a Levophed drip to keep his MAP greater than equal to 65 mmHg. His troponin is trending down from 135 present on admission to . He denies other complaints at this time and is resting comfortably. FURNITURE MANAGER was updated with plan. Sepsis Attestation Sepsis Alert: Yes Sepsis Attestation: Agree w/Sepsis Date exam was performed: 07/26/23 Time exam was performed: 23:00 Possible Source of Sepsis: Pulmonary Sepsis Organ Dysfunction Criteria Present: SBP < 90 mmHg or MAP < 65 mmHg, Creatinine > 2.0 mg/dL, Lactic Acid > 2 mmol/L and New/Unexplained change in mental status Fluid Resuscitation Fluid resuscitation indicated?: Yes Fluid Resuscitation ordered: 30 ml/kg fluid bolus ordered Amount of fluid ordered: 3 Sepsis Note Date exam was performed: 07/27/23 Time exam was performed: 01:00 Sepsis Attestation: Sepsis re-evaluation was performed Response to fluids: Non Fluid responsive hypotension and Vasopressors started Charges/Coding Visit Charges Inpatient E&M: 73160 Init Hosp L3
[2023-07-26 22:00] LABS: BNP,B-Type NATRIURETIC PEPTIDE > 5000.0 pg/mL (0-100)
[2023-07-26 22:20] VITALS: BP 78/59; BP 81/47; PULSE 87; PULSE 94; RESP 22; O2SAT 98
[2023-07-26 22:22] VITALS: BP 78/59; PULSE 90; RESP 22; TEMP 36.8; O2SAT 98
--- NOTE | 2023-07-26 22:31 | ED.RN ---
PT BTNP >5000, NO FLUIDS GIVEN PER DR. SPEARS.
[2023-07-26] MEDS: Oseltamivir Phosphate 30 MG Capsule PO (22:36)
--- NOTE | 2023-07-26 23:30 | ECHOD_ITS ---
Reason For Study: CHF Procedure This was a 2D Doppler, Color Flow transthoracic echocardiogram. The study was technically difficult. Exam performed portable in ICU/CCU. Left Ventricle Mildly dilated left ventricle. Mild concentric left ventricular hypertrophy. Severe global left ventricular systolic dysfunction. The left ventricular ejection fraction is 15 %. Stage 2 diastolic dysfunction. Right Ventricle Normal right ventricle. Atria There is severe biatrial dilatation. Mitral Valve Moderate diffuse mitral valve thickening. Moderate to severe mitral valve regurgitation. Tricuspid Valve Mild tricuspid valve insufficiency. Right ventricular systolic pressure estimated to be 52 mmHg. Aortic Valve Severe diffuse aortic valve calcification. Severe aortic stenosis. Mild (1+) aortic valve insufficiency. Pulmonic Valve The pulmonic valve is not well visualized. Great Vessels Normal sized aortic root. Pericardium/Pleural No pericardial effusion. MMode/2D Measurements & Calculations LVIDd: 5.2 cm IVSd: 1.3 cm LVOT diam: 2.2 cm LVIDs: 4.7 cm LVPWd: 1.1 cm LVOT area: 3.6 cm2 RVDd: 5.0 cm FS: 9.7 % Ao root diam: 3.3 cm LAV(MOD-bp): 114.1 ml LVAd ap4: 41.5 cm2 LA dimension: 5.0 cm LAV(MOD-bp) Indexed: 57.4 ml/m2 LVLd ap4: 8.6 cm LAV(MOD-sp2): 89.2 ml EDV(MOD-sp4): 164.9 ml LAV(MOD-sp4): 123.0 ml EDV(sp4-el): 170.3 ml LVAs ap4: 37.1 cm2 LVLs ap4: 8.4 cm ESV(MOD-sp4): 133.7 ml ESV(sp4-el): 138.0 ml EF(MOD-sp4): 18.9 % EF(sp4-el): 19.0 % SV(MOD-sp4): 31.2 ml SV(sp4-el): 32.3 ml LA A4 area: 32.8 cm2 RA A4 area: 22.1 cm2 TAPSE: 1.5 cm Time Measurements MV dec time: 0.09 sec Doppler Measurements & Calculations MV E max mulugeta: 99.5 cm/sec Lat Peak E' Mulugeta: 8.5 cm/sec Med Peak E' Mulugeta: 3.3 cm/sec MV A max mulugeta: 57.1 cm/sec E/E' lat: 11.6 E/E' med: 30.1 MV E/A: 1.7 MV V2 max: 107.8 cm/sec MV P1/2t max mulugeta: 109.7 cm/sec Ao V2 max: 338.2 cm/sec MV max P.6 mmHg MV P1/2t: 33.5 msec Ao max P.8 mmHg MV V2 mean: 53.7 cm/sec Ao V2 mean: 235.6 cm/sec MV mean P.4 mmHg MV dec slope: 957.8 cm/sec2 Ao mean P.3 mmHg MV V2 VTI: 17.7 cm MVA(P1/2t): 6.6 cm2 Ao V2 VTI: 59.7 cm AV (velocity ratio): 0.18 MVA(VTI): 2.2 cm2 KAMI(I,D): 0.66 cm2 KAMI(V,D): 0.60 cm2 LV V1 max: 56.0 cm/sec MR max mulugeta: 498.1 cm/sec SV(LVOT): 39.7 ml LV V1 max P.3 mmHg MR max P.3 mmHg LV V1 mean P.62 mmHg MR mean mulugeta: 381.5 cm/sec LV V1 mean: 35.5 cm/sec MR mean P.8 mmHg LV V1 VTI: 10.9 cm MR VTI: 140.4 cm TR max mulugeta: 304.3 cm/sec TR max P.0 mmHg ECHO/Echo Complete Interpretation Summary Mildly dilated left ventricle. Mild concentric left ventricular hypertrophy. Severe global left ventricular systolic dysfunction. The left ventricular ejection fraction is 15 %. Stage 2 diastolic dysfunction. Moderate to severe mitral valve regurgitation Mild tricuspid valve insufficiency. Right ventricular systolic pressure estimated to be 52 mmHg. Severe aortic stenosis. Valve area estimated at 0.6 cm??. Mild (1+) aortic valve insufficiency. The study was technically difficult. Ordering Physician: Osmar Best Referring Physician: Marisel Che Performed By: Kevin Abarca RCS
[2023-07-26 23:33] VITALS: BMI 25.6
[2023-07-26] MEDS: Piperacil/Tazobactam 3.375 GM in 0.9% Normal Saline (50mL MB+) 50 ML IV (23:57)
[2023-07-26] MEDS: Lactated Ringers 1,000 ML 999 ML IV (23:57)
[2023-07-27] VITALS (39 sets, daily range): BP systolic 70–103; BP diastolic 33–77; PULSE 82–96; RESP 16–32; TEMP 36.9–37.8; O2SAT 90–99; BMI 26.2
[2023-07-27 00:10] LABS: Color, Urine Yellow (Yellow); Glucose, Dipstick Normal (Normal); Ketone-Dipstick Negative (Negative); Leukocyte Esterase-Dipstick 100 /ul (Negative); Mucous, Urine 0 SEEN /hpf (<or=2+); Nitrite-Dipstick Negative (Negative); Occult Blood-Urine 50 /ul (Negative); Protein-Dipstick 30 mg/dl (Negative); Squamous Epithelial Cells - UA 0 SEEN /hpf (0-5); Urine Bilirubin Dipstick Negative (Negative); Urine Clarity Clear (Clear); Urine Urobilinogen Normal (Normal)
--- NOTE | 2023-07-27 00:16 | VDLE_ITS ---
Reason For Study: BLE Swelling RIGHT LEFT GSV is normal. CFV is compressible, spontaneous, and CFV is compressible, spontaneous, competent demonstrates pulsatile venous flow. and demonstrates pulsatile venous flow. Acute deep vein thrombosis is noted in the FV is compressible, spontaneous, competent FV. It is dilated and NONCOMPRESSIBLE. and demonstrates pulsatile venous flow. FV is compressible at proximal portion but POP V is PARTIALLY COMPRESSIBLE. becomes partially compressible at mid and non SSV is NONCOMPRESSIBLE and dilated with compressible at distal. intraluminal echoes consistent with possible Acute deep vein thrombosis is noted in the acute on chronic SVT. The echoes appear to POP V. It is dilated and NONCOMPRESSIBLE. extend into the POP V at junction and appear Acute deep vein thrombosis is noted in the more hypoechoic, consistent with ACUTE DVT. Gastrocnemius V. It is dilated and T/P Trunk is compressible. NONCOMPRESSIBLE. PTV is compressible. Acute deep vein thrombosis is noted in the RT PerV is compressible. T/P Trunk. It is dilated and NONCOMPRESSIBLE. Procedure This is a venous duplex using B-mode, color Acute deep vein thrombosis is noted in the flow and spectral Doppler. PTV. It is dilated and NONCOMPRESSIBLE. Exam performed portable in ICU/CCU. Acute deep vein thrombosis is noted in the The study was technically difficult due to Per V. It is dilated and NONCOMPRESSIBLE. patient positioning and swelling/edema. A preliminary report was called and/or faxed to [employer] responsible for patient. VL/Venous Duplex US - Luis Manuel Extrem Interpretation Summary Acute deep vein thrombosis is noted in the right popliteal vein. Acute deep vei n thrombosis is noted in the left femoral vein. Acute deep vein thrombosis is noted in the left femoral vein, popliteal vein, t ibio-peroneal trunk vein, gastrocnemius vein, posterior tibial vein, peroneal vein. Acute on chronic superficial vein thrombosis is noted in the right small saphen ous vein. Ordering Physician: Osmar Best Referring Physician: Marisel Che Performed By: Uche Godinez RVT
[2023-07-27 00:27] LABS: Amphetamine Urine VISTA NEGATIVE (<1000 ng/mL); Barbiturate Urine VISTA NEGATIVE (< 200 ng/mL); Benzodiazepine Urine VISTA NEGATIVE (< 200 ng/mL); Cocaine Urine VISTA NEGATIVE (< 300 ng/mL); Ecstacy Urine VISTA NEGATIVE (< 500 ng/mL); Methadone Urine VISTA NEGATIVE (< 300 ng/mL); PCP Urine VISTA NEGATIVE (< 25 ng/mL); THC Urine VISTA NEGATIVE (< 50 ng/mL); Vista UDS pH Range 5
[2023-07-27 00:27] LABS: White Blood Cells 5-10 SEEN /hpf (0-5)
[2023-07-27 00:28] LABS: Bacteria 2+ /hpf (None Seen); Red Blood Cells-Urine 10-25 SEEN /hpf (0-5)
[2023-07-27] MEDS: Norepinephrine 8 MG in 0.9% Normal Saline (250mL Bag) 242 ML 9.4 MG CONT INF (00:30)
[2023-07-27] MEDS: Vancomycin HCl 2,000 MG in 0.9% Normal Saline (500mL Bag) 500 ML 250 MG IV (00:42)
[2023-07-27] MEDS: Atorvastatin Calcium 20 MG Tablet PO ×2 (00:43→21:10)
[2023-07-27 00:53] LABS: D-Dimer Quantitative (DVT/PE) 9.89 FEU/ug/m (0.27-0.49)
[2023-07-27 00:53] LABS: CPK Total, Creatine Kinase 108 U/L (39-308); Lactic Acid 3.1 mmol/L (0.4-1.9); Prealbumin 4.2 mg/dL (20.0-40.0); Thyroid Stim Hormone (TSH) 4.22 uIU/mL (0.358-3.74); Troponin-I HS 128 pg/mL (3.0-78.0)
[2023-07-27] MEDS: Lactated Ringers 1,000 ML 999 ML IV (01:11)
[2023-07-27 01:16] LABS: Partial Thromboplast Time 40.9 Seconds (24.1-36.2)
[2023-07-27 01:17] LABS: Reflex Lactate? Y
--- NOTE | 2023-07-27 01:18 | PCM.RX.CS ---
Consult Antibiotic Management Pharmacy has been consulted to manage selected antiobiotic: Vancomycin Type of Intervention Type of Consult: New start Suspected Infection Suspected Infection: Pneumonia Labs Labs: Sodium 134 mmol/L (136-145) L 07/26/23 18:08 Potassium 4.5 mmol/L (3.5-5.1) 07/26/23 18:08 Chloride 98 mmol/L (98-107) 07/26/23 18:08 Carbon Dioxide 25.0 mmol/L (21.0-32.0) 07/26/23 18:08 Anion Gap 11 (5-15) 07/26/23 18:08 BUN 104 mg/dL (7-18) H* 07/26/23 18:08 Creatinine 3.22 mg/dL (0.70-1.30) H 07/26/23 18:08 Est GFR (MDRD) Af Amer 24 mL/min (>60) L 07/26/23 18:08 Est GFR (MDRD) Non-Af 20 mL/min (>60) L 07/26/23 18:08 BUN/Creatinine Ratio 32.3 RATIO (10-20) H 07/26/23 18:08 Glucose 127 mg/dL (74-106) H 07/26/23 18:08 Microbiology Microbiology: Microbiology 07/26/23 21:10 Mucosa - Nasopharyngeal Influenza Types A,B Direct FA (DANIELA) - Final Influenzae A 07/26/23 21:10 Nasal Secretion SARS-CoV-2 Antigen (Rapid) - Final Dosing Weight Weight used for dosin.8 kg Estimated Creatinine Clearance Estimated Creatinine Clearance: 18.6 Goal Trough Goal Trough: 15-20 mcg/mL Pharmacy Plan for Drug Dosing Pharmacy Plan for Drug Dosing: An initial vancomycin dose of 2000mg was given 07-27-23 @0042. With current CrCl<20 (at 18.6), we will hold further dosing pending a random vanco level that will be drawn with a.m. labs 07-28. Pharmacy Service will continue to monitor and adjust dosing as required. Follow-Up Labs Follow-Up Labs: Trough: Vancomycin (random) Date/Time Labs Ordered Labs to be done on [date and time ordered]: 07/28/23 @0600 random
[2023-07-27] MEDS: HEPARIN/D5w 25,000 UNITS 25,000 UNITS/250 ML IV.SOLN. 11 UNITS CONT INF (01:59)
[2023-07-27] MEDS: Heparin Injection (Vial) 5,000 UNIT/ML VIAL IV (02:00)
[2023-07-27 04:15] LABS: BNP,B-Type NATRIURETIC PEPTIDE > 5000.0 pg/mL (0-100); Lactic Acid 2.5 mmol/L (0.4-1.9)
[2023-07-27 04:25] LABS: Reflex Lactate? Y
[2023-07-27 05:52] LABS: Troponin-I HS 118 pg/mL (3.0-78.0)
--- NOTE | 2023-07-27 06:38 | RAD_ITS ---
EXAM: XR CHEST, 1 VIEW CLINICAL INDICATION: Bilateral Pneumonia and AE CHF. -- Bilateral Pneumonia and AE CHF with Sepsis. TECHNIQUE: Frontal view of the chest. COMPARISON: 07/26/2023 FINDINGS: LUNGS AND PLEURAL SPACES: Bilateral lower lobe airspace disease compatible with. Signed there are degenerative changes in both shoulders with joint space narrowing. No pneumothorax. No effusion. HEART: Unremarkable. Cardiac silhouette not enlarged. MEDIASTINUM: Central airways and mediastinal contour are unremarkable. BONES/JOINTS: Unremarkable. No acute fracture. SOFT TISSUES: Unremarkable. TUBES, LINES AND DEVICES: Right-sided PICC line is in stable position. RAD/Chest 1 View (Portable) IMPRESSION: No significant change in the appearance of the chest. Right-sided PICC line in stable position. Electronically Signed: Jacques Marshall MD at 0:05 EST ,
[2023-07-27 07:00] LABS: Hematocrit 29.4 % (40-54); Hemoglobin 9.4 g/dL (13.0-16.5); Mean Corpuscular Hgb 27.3 pg (27.0-32.0); Mean Corpuscular Volume 85.5 fL (80-94); Mean Platelet Vol. 11.5 fl (6.2-12.0); Platelet Count 101 K/mm3 (150-450); RBC Distribution Width CV 14.7 % (11.6-14.6); RBC Distribution Width SD 45.1 fl (35.1-43.9); Red Blood Count 3.44 M/mm3 (4.6-6.2); White Blood Count 14.4 K/mm3 (4.4-11.0)
--- NOTE | 2023-07-27 07:26 | PCM.PN.HOSP ---
Reason for Visit Reason for Visit: Shortness of breath/cough/malaise Subjective Subjective Patient is a 78-year-old white male who presented to the emergency department [facility] on 07/26/2023 with shortness of breath, cough, and malaise. He evidently started having symptoms about 6 weeks ago when he developed a viral respiratory tract infection with gradual onset of dyspnea with exertion that progressed to shortness of breath at rest and had become much worse over the past several days prior to admission. He reported poor appetite for about a month and a frequent cough that was nonproductive. He also had severe 4+ swelling in his lower extremities along with subjective fever and shortness of breath that was made worse by activity. His son reported that he had previously been on Lasix for lower extremity edema but this was discontinued by his apartment rental clerk due to worsening renal function. Upon presentation his temperature was 97.2, heart rate 86, blood pressure was 100/65, respiratory rate was 19 and oxygen saturations were 94% on room air. He subsequently desatted on room air to 87% was placed on 2 L nasal cannula with improvement in his oxygen saturations to 97%. CBC showed leukocytosis with a white count of 14.3 and an 87.3% neutrophilia. He also had a new thrombocytopenia as well as a chronic stable anemia. His BUN was markedly elevated 104 and serum creatinine was up to 3.22 (baseline 1.7-2.0). His initial lactate was 3.1 and he had transaminitis with a AST of 62 and an ALT of 129 with a bilirubin of 1.3. His initial troponin was elevated 135 and his BNP was greater than 5000. His UA was suggestive of possible infection. Respiratory influenza panel was positive for influenza A. Strep pneumo and Legionella antigens were unremarkable. Blood cultures are pending. He was admitted to the intensive care due to his markedly elevated lactic acid and hypotensive. He did require pressors to be initiated and has been paced on broad-spectrum antibiotics with vancomycin and Zosyn. Today the patient is on 4 mcg/min of Levophed which has been reduced from 5. He has no specific complaints at this time. His daughter is at the bedside and we do confirm that his CODE STATUS is DNR CCA with no intubation. Currently awaiting further diagnostic testing which I suspect will be done tomorrow due to the holiday. Objective Data Objective Data Vital Signs: Vital Signs Temp Pulse Resp BP Pulse Ox O2 Del Method O2 Flow Rate 98.7 F 94 31 H 91/65 96 Nasal Cannula 2 07/27/23 07:00 07/27/23 07:00 07/27/23 07:00 07/27/23 07:00 07/27/23 07:18 07/27/23 07:18 07/27/23 07:18 Oxygen Flow Rate (L/min) 2 Oxygen Delivery Method Nasal Cannula Weight: 83.007 kg Body Mass Index (BMI) 26.2 Intake & Output: Intake and Output for Last 24 Hours 07/25/23 07/26/23 07/27/23 23:59 23:59 23:59 Intake Total 305 / 305 2700.00 / 2700.00 Output Total 350 / 350 Balance 305 / 305 2350.00 / 2350.00 Lab / Micro Data 07/27/23 03:30 07/27/23 03:30 Labs: Laboratory Results - last 24 hr 07/26/23 00:00: D-Dimer Quant (PE/DVT) 9.89 H* 07/26/23 18:08: WBC 14.3 H, RBC 3.75 L, Hgb 10.4 L, Hct 32.1 L, MCV 85.6, MCH 27.7, MCHC 32.4, RDW Std Deviation 45.6 H, RDW Coeff of Yue 14.8 H, Plt Count 124 L, MPV 12.1 H, Immature Gran % (Auto) 0.800, Neut % (Auto) 87.3 H, Lymph % (Auto) 3.7 L, [place] % (Auto) 8.0, Eos % (Auto) 0.1, Baso % (Auto) 0.1, Absolute Neuts (auto) 12.5 H, Absolute Lymphs (auto) 0.53 L, Nucleated RBC % 0.6, Differential Comment SCANNED, Sodium 134 L, Potassium 4.5, Chloride 98, Carbon Dioxide 25.0, Anion Gap 11, BUN 104 H*, Creatinine 3.22 H, Estim Creat Clear Calc 18.60, Est GFR (MDRD) Af Amer 24 L, Est GFR (MDRD) Non-Af 20 L, BUN/Creatinine Ratio 32.3 H, Glucose 127 H, Calcium 8.6, Total Bilirubin 1.30 H, AST 62 H, ALT 129 H, Alkaline Phosphatase 268 H, Troponin I High Sens 135 H*, Total Protein 6.8, Albumin 2.8 L, Globulin 4.0, Albumin/Globulin Ratio 0.7 L 07/26/23 21:08: Lactic Acid 2.2 H* 07/26/23 22:29: Urine Color Yellow, Urine Clarity Clear, Urine pH 5.0, Ur Specific [place] 1.020, Urine Protein 30 H, Urine Glucose (UA) Normal, Urine Ketones Negative, Urine Occult Blood 50 H, Urine Nitrite Negative, Urine Bilirubin Negative, Urine Urobilinogen Normal, Ur Leukocyte Esterase 100 H, Urine RBC 10-25 SEEN, Urine WBC 5-10 SEEN, Ur Squamous Epith Cells 0 SEEN, Urine Bacteria 2+, Urine Mucus 0 SEEN 07/26/23 23:30: Urine Opiates Screen NEGATIVE, Urine Methadone Screen NEGATIVE, Ur Barbiturates Screen NEGATIVE, Ur Phencyclidine Scrn NEGATIVE, Ur Amphetamines Screen NEGATIVE, MDMA (Ecstasy) Screen NEGATIVE, U Benzodiazepines Scrn NEGATIVE, Urine Cocaine Screen NEGATIVE, U Cannabinoids Screen NEGATIVE, Ur Drug Screen Comment 07/26/23 23:55: Lactic Acid 3.1 H*, Total Creatine Kinase 108, Troponin I High Sens 128 H*, Prealbumin 4.2 L, TSH 4.22 H 07/26/23 : B-Natriuretic Peptide > 5000.0 H 07/27/23 00:00: APTT 40.9 H 07/27/23 03:30: WBC 14.4 H, RBC 3.44 L, Hgb 9.4 L, Hct 29.4 L, MCV 85.5, MCH 27.3, MCHC 32.0, RDW Std Deviation 45.1 H, RDW Coeff of Yue 14.7 H, Plt Count 101 L, MPV 11.5, Lactic Acid 2.5 H*, Troponin I High Sens 118 H, B-Natriuretic Peptide > 5000.0 H Micro: Microbiology 07/26/23 23:30 Urine, Random Legionella Antigen - Final 07/26/23 23:30 Urine, Random Streptococcus pneumoniae Antigen (M - Final 07/26/23 21:10 Mucosa - Nasopharyngeal Influenza Types A,B Direct FA (DANIELA) - Final Influenzae A 07/26/23 21:10 Nasal Secretion SARS-CoV-2 Antigen (Rapid) - Final Radiography Diagnostic Testing: Radiology Impression Chest X-Ray 07/26/23 18:10 IMPRESSION: 1. Worse bibasilar airspace disease and pleural effusions. Electronically Signed: River Hdz MD (Brooks) at 18:35 EST , Chest X-Ray 07/26/23 20:10 IMPRESSION: Small bilateral pleural effusions and bibasilar consolidation. No evidence for pneumothorax status post right central line placement with tip in distal superior vena cava Electronically Signed: Ruben Henry MD at 20:39 EST , Physical Exam Const alert, oriented x3 and no apparent distress Constitutional Narrative: Elderly, white male, sitting up in bed watching television, daughter at bedside, patient appears older than stated age, currently appears comfortable and nontoxic HEENT head/scalp atraumatic and moist oral mucous membranes HEENT Narrative: Dentition is poor, Mallampati is 1 2, no thrush, hard of hearing Head and Scalp: normocephalic Resp normal respiratory effort, no retractions, no use of accessory muscles and No clear to auscultation bilaterally Resp Narrative: Crackles/rhonchi in the right base but otherwise clear, no signs of respiratory distress, currently on room air Auscultation: crackles and rhonchi; Negative for wheezes Cardio regular rate, regular rhythm, S1 normal heart sound, S2 normal heart sound, no rub, no gallops and no clicks; Negative for no murmurs Cardio Narrative: 2 out of 6 systolic murmur loudest at left lower sternal border GI normal to inspection, nondistended, normoactive bowel sounds, soft to palpation and non-tender Extremity Extremity Narrative: small amount of mottling at distal bilateral lower extremities with 4+ pitting edema bilateral lower extremities, no cyanosis or clubbing Skin no wounds, skin turgor normal, no jaundice, no petechiae and No no mottling Skin Narrative: Right subclavian triple-lumen catheter in place with oozing around site due to heparin Neuro oriented x3, CN's II-XII intact bilaterally, moves all extremities and no focal motor deficits Neuro Narrative: Generalized weakness noted-proximal greater than distal Speech: speech normal Psych affect normal Psych Narrative: Eye contact is good, patient is pleasant Assessment & Plan Assessment/Plan (1) Septic shock: (2) D-dimer, elevated: (3) Elevated troponin: (4) Acute kidney injury superimposed on CKD: (5) Hypoxia: (6) Thrombocytopenia: (7) Influenza A H1N1 infection: (8) Leukocytosis: (9) Transaminitis: PLAN: Plan Septic shock secondary to influenza A, +/- superimposed bacterial pneumonia -Blood and urine cultures are pending -Check sputum culture if able to obtain -Broad-spectrum antibiotics -Continue Tamiflu -Currently on pressors--> wean as able -Critical care medicine consultation pending--> discussed case with artillery meteorological man Influenza A -Tamiflu as above -Supportive care Acute hypoxia -Patient shows no signs of respiratory failure however is requiring 2 L nasal cannula -Continue supplemental oxygen as needed and wean as able -Echo Pending Lactic acidosis -Likely related to hypotension and decreased clearance due to NATALEE on CKD -Trending down Thrombocytopenia-acute -Suspect related to acute illness -Will monitor Elevated D-dimer/lower extremity edema -LE US pending -cancel VQ with abn CXR -cont heparin ggt until can better r/o DVT Troponin elevation -suspect stress induced ischemia -Ending down -Continue aspirin/Plavix -Echocardiogram is pending -Cardiology is consulted and following Leukocytosis -Suspect related to the above -Continue to monitor -Continue broad-spectrum antibiotics and await cultures Mild transaminitis -Suspect related to acute infection from influenza -Will trend -Elevations are mild NATALEE on CKD stage IV -Baseline serum creatinine appears to be between 1.7 and 2.0 -Serum creatinine on presentation was greater than 3 -Continue to monitor closely -Nephrology consult pending--> patient follows with Dr. Nur as an outpatient -No current needs for renal replacement therapy -Avoid nephrotoxins as able -Renally dose medications History of hypertension -Patient has been hypotensive and on pressors -Continue to monitor -Will need to obtain home medication list History of glaucoma -Home medication list is pending and will initiate any medications after obtained Hyperlipidemia -Continue home statin History of testicular cancer -Remote 1978 -Status post chemo and radiation with oval of retroperitoneal lymph nodes DVT prophylaxis -Continue heparin drip CODE STATUS -Full code is verified on admission however patient has been considering DNR CCA with no intubation but no final decision has been made at this time Charges/Coding Visit Charges Inpatient E&M: 48588 Subs Hosp L2
[2023-07-27 07:47] LABS: Anion Gap 10 (5-15); BUN 103 mg/dL (7-18); BUN/Creat Ratio 33.9 RATIO (10-20); Calcium,Total 7.9 mg/dL (8.5-10.1); Chloride 101 mmol/L (98-107); Creatinine, Serum 3.04 mg/dL (0.70-1.30); EST Glomerular Filtration Rate 21 mL/min (>60); Est Glom Filt Rate - Afr Amer 26 mL/min (>60); Estimated Creatinine Clearance 20.34 ml/min; Glucose 136 mg/dL (74-106); Potassium 4.4 mmol/L (3.5-5.1); Sodium Level 134 mmol/L (136-145)
--- NOTE | 2023-07-27 07:54 | CON.PCM.CC_ITS ---
Assessment & Plan Assessment/Plan (1) Septic shock: (2) Acute kidney injury superimposed on CKD: (3) Pneumonia of both lower lobes: QUALIFIERS: Pneumonia type: due to unspecified organism Qualified Code(s): J18.9 - Pneumonia, unspecified organism PLAN: Plan RECOMMENDATIONS: 1. Continue pressors to maintain a MAP greater than 65 2. Agree with broadening antibiotics to think and Zosyn 3. Wean supplemental oxygen as tolerated 4. Hold on diuresis for now given pressors 5. Discontinue VQ scan given abnormal chest x-ray 6. Continue heparin pending results of echocardiogram 7. Potentially treat for 10 days even if culture negative given antibiotics before cultures IMPRESSIONS: 1. Septic shock secondary to right lower lobe pneumonia secondary to influenza Unclear if patient has a secondary infection such as Staph aureus associated with influenza. Respiratory status is doing well, but patient does not have any history of lung pathology or smoking. Will continue with broad- spectrum antibiotics for now pending cultures. Unfortunately, patient did receive antibiotics prior to cultures, so may need 10 days of treatment despite negative cultures. Patient is on pressors at this time, so diuresis will have to be held. 2. Acute hypoxic respiratory insufficiency Patient does not have a history of needs of supplemental oxygen previously. Patient does have a right lower lobe infiltrate noted on chest x- ray. Will likely need a follow-up x-ray to be sure this resolves. No indicatio n for BiPAP or ABG at this time from my perspective. Will continue with supportive care. 3. Acute on chronic kidney disease True baseline creatinine unclear at this time, but appears to be at least stage IIIb. Clinical suspicion for prerenal etiology secondary to problem #1 and possible congestive heart failure. Patient recently did receive diuretics. It does appear the patient is slightly delayed in presentation. Patient is making urine at this time and function appears to be slightly improved over short hospital course. No indication for renal replacement therapy at this time, but it is possible moving forward. Will hold on nephrology consult for now, but this may be necessary over the weekend. 4. Congestive heart failure Patient with significant lower extremity edema. Unfortunately, no echocardiogram is available for evaluation of systolic and diastolic function. Will hold on any diuresis for now given problem #1 and need for pressors. Patient is on a heparin drip, but clinical suspicion is elevated troponin is secondary to supply demand mismatch. Likely discontinue heparin after 24 to 48 hours pending echo results. 5. Thrombocytopenia/advanced age/poor historian/hyperlipidemia/history of testicular cancer/hypertension Complicates care, management, recovery and prognosis. Clinical suspicion is for thrombocytopenia secondary to problem #1. Patient is on heparin at this time. Will hold antihypertensives given problem #1 also. Okay to continue with statin from my perspective. TIME: 35 minutes critical care time spent addressing patient's septic shock, hypoxia, CHF, acute kidney injury, review of all data and collaboration with care team HPI Consult Data Date of Consult: 07/27/23 HPI Narrative Reason for Consultation: Septic shock HPI Narrative: YESIKA CHE is a 78 M, with past medical history listed below, who presents to [facility] 07/26/2023 secondary to shortness of breath, lower extremity swelling, cough and subjective fever. Patient reportedly was a very poor historian, but had been reporting progressive shortness of breath over the past couple of weeks. Family had reported a nonproductive cough and subjective fever. Patient reportedly recently had been placed on Lasix secondary to lower extremity edema, but this was discontinued because of kidney function. Patient did not have any history of previous lung pathology. In the ER, patient was afebrile, but tachypneic at 24 breaths/min. Patient was hypotensive at 98/65 and saturating well on room air. Laboratory data showed a white blood cell count of 14.3, hemoglobin of 10.4 and platelets of 124. Chemistry showed an elevated BUN of 104 and a creatinine of 3.22. Initial lactate was elevated 2.2 along with liver enzymes and troponin of 135. Chest x-ray showed bilateral pneumonia and possible pleural effusions. Patient was initially treated with Rocephin and azithromycin for community-acquired pneumonia, but then became back positive for influenza A. Given patient's volume status, there was significant difficulty in placing an IV. Patient ult imately had a right subclavian placed by ER without complications. Unfortunately, patient did receive Rocephin prior to blood cultures given difficulty in access. Since being in the intensive care unit, patient did have to be initiated on Levophed secondary to hypotension. Patient subjectively feels improved compared to previous. Patient is a relatively poor informant, but believes he has had kidney disease for 10 to 12 years. Patient has reported increasing lower extremity edema over the last 6 to 8 weeks. Patient states that shortness of breath and subjective fevers have been going on for approximately a week. Patient does not have any history of heart or lung disorder that he is aware of. Patient knows he has kidney problems, but has delayed initiation of care. Patient is not aware of any recent echocardiogram. Patient has not reported any dysuria. Review of systems otherwise negative from a constitutional, HEENT, respiratory, cardiovascular, GI, genitourinary, musculoskeletal, skin, neurologic, psychiatric and hematologic system unless stated above. [facility] Medical History (HFpEF) heart failure with preserved ejection fraction Anemia due to end stage renal disease Cataracts, bilateral CKD (chronic kidney disease) stage 4, GFR 15-29 ml/min Diastolic dysfunction Glaucoma Hypertension Testicular cancer Allergy/AdvReac Type Severity Reaction Status Date / Time No Known Allergies Allergy Verified 07/26/23 19:53 Surgical History H/O shoulder replacement History of hip replacement Status post bilateral knee replacements Social History household members: none Smoking Status: Never smoker substance use type: does not use ROS ROS Narrative See HPI Physical Exam Const alert, no apparent distress and average body habitus Constitutional Narrative: Readily interacts, but very poor historian. General Appearance: cooperative HEENT normocephalic and head/scalp atraumatic HEENT Narrative: Oropharynx dry. General Ear: hearing grossly impaired diffuse Eyes EOMs intact bilaterally and conjunctivae normal Eyes Narrative: Some clotting noted of the left eye Neck no lymphadenopathy, supple and no JVD Neck Narrative: Patient has bruising over the lateral sides of his neck from previous EJ attempts. There is no signs of active bleeding or infection at this time. Chest Chest Narrative: Right subclavian noted. Some bright red blood noted under dressing Resp Resp Narrative: No conversational dyspnea noted Effort and Inspection: Negative for tachypneic Auscultation: rhonchi right lower; Negative for rales or wheezes Cardio regular rate and regular rhythm Cardio Narrative: Mild grade 2 out of 6 systolic ejection murmur at the lower sternal border. Heart Sounds: murmur systolic II/ low-pitched mid right sternal border GI normal to inspection, nondistended, normoactive bowel sounds, soft to palpation, non-tender and non-distended Extremity General Extremity: edema bilateral (4+) lower extremity; Negative for clubbing Skin no rashes or lesions noted General Skin Exam: Negative for mottling Neuro CN's II-XII intact bilaterally, moves all extremities and no focal motor deficits Speech: speech normal Psych cooperative and affect normal Medical Records Data Attestation: I reviewed the patient's medical records Medical records narrative: Review of the medical record shows creatinine around 2 previously. No previous pulmonary function test or echocardiogram available for comparison Lab / Micro Data Attestation: I reviewed the patient's lab results. 07/27/23 03:30 07/27/23 03:30 Labs: Laboratory Results - last 24 hr 07/26/23 00:00: D-Dimer Quant (PE/DVT) 9.89 H* 07/26/23 18:08: WBC 14.3 H, RBC 3.75 L, Hgb 10.4 L, Hct 32.1 L, MCV 85.6, MCH 27.7, MCHC 32.4, RDW Std Deviation 45.6 H, RDW Coeff of Yue 14.8 H, Plt Count 124 L, MPV 12.1 H, Immature Gran % (Auto) 0.800, Neut % (Auto) 87.3 H, Lymph % (Auto) 3.7 L, [place] % (Auto) 8.0, Eos % (Auto) 0.1, Baso % (Auto) 0.1, Absolute Neuts (auto) 12.5 H, Absolute Lymphs (auto) 0.53 L, Nucleated RBC % 0.6, Differential Comment SCANNED, Sodium 134 L, Potassium 4.5, Chloride 98, Carbon Dioxide 25.0, Anion Gap 11, BUN 104 H*, Creatinine 3.22 H, Estim Creat Clear Calc 18.60, Est GFR (MDRD) Af Amer 24 L, Est GFR (MDRD) Non-Af 20 L, BUN/Creatinine Ratio 32.3 H, Glucose 127 H, Calcium 8.6, Total Bilirubin 1.30 H, AST 62 H, ALT 129 H, Alkaline Phosphatase 268 H, Troponin I High Sens 135 H*, Total Protein 6.8, Albumin 2.8 L, Globulin 4.0, Albumin/Globulin Ratio 0.7 L 07/26/23 21:08: Lactic Acid 2.2 H* 07/26/23 22:29: Urine Color Yellow, Urine Clarity Clear, Urine pH 5.0, Ur Specific [place] 1.020, Urine Protein 30 H, Urine Glucose (UA) Normal, Urine Ketones Negative, Urine Occult Blood 50 H, Urine Nitrite Negative, Urine Bilirubin Negative, Urine Urobilinogen Normal, Ur Leukocyte Esterase 100 H, Urine RBC 10-25 SEEN, Urine WBC 5-10 SEEN, Ur Squamous Epith Cells 0 SEEN, Urine Bacteria 2+, Urine Mucus 0 SEEN 07/26/23 23:30: Urine Opiates Screen NEGATIVE, Urine Methadone Screen NEGATIVE, Ur Barbiturates Screen NEGATIVE, Ur Phencyclidine Scrn NEGATIVE, Ur Amphetamines Screen NEGATIVE, MDMA (Ecstasy) Screen NEGATIVE, U Benzodiazepines Scrn NEGATIV E, Urine Cocaine Screen NEGATIVE, U Cannabinoids Screen NEGATIVE, Ur Drug Screen Comment 07/26/23 23:55: Lactic Acid 3.1 H*, Total Creatine Kinase 108, Troponin I High Sens 128 H*, Prealbumin 4.2 L, TSH 4.22 H 07/26/23 : B-Natriuretic Peptide > 5000.0 H 07/27/23 00:00: APTT 40.9 H 07/27/23 03:30: WBC 14.4 H, RBC 3.44 L, Hgb 9.4 L, Hct 29.4 L, MCV 85.5, MCH 27.3, MCHC 32.0, RDW Std Deviation 45.1 H, RDW Coeff of Yue 14.7 H, Plt Count 101 L, MPV 11.5, Sodium 134 L, Potassium 4.4, Chloride 101, Carbon Dioxide 23.0, Anion Gap 10, BUN 103 H*, Creatinine 3.04 H, Estim Creat Clear Calc 20.34, Est GFR (MDRD) Af Amer 26 L, Est GFR (MDRD) Non-Af 21 L, BUN/Creatinine Ratio 33.9 H , Glucose 136 H, Lactic Acid 2.5 H*, Calcium 7.9 L, Troponin I High Sens 118 H, B-Natriuretic Peptide > 5000.0 H Micro: Microbiology 07/26/23 23:30 Urine, Random Legionella Antigen - Final 07/26/23 23:30 Urine, Random Streptococcus pneumoniae Antigen (M - Final 07/26/23 21:10 Mucosa - Nasopharyngeal Influenza Types A,B Direct FA (DANIELA) - Final Influenzae A 07/26/23 21:10 Nasal Secretion SARS-CoV-2 Antigen (Rapid) - Final Imagaing Radiology Impression Chest X-Ray 07/26/23 18:10 IMPRESSION: 1. Worse bibasilar airspace disease and pleural effusions. Electronically Signed: River Hdz MD (Brooks) at 18:35 EST , Chest X-Ray 07/26/23 20:10 IMPRESSION: Small bilateral pleural effusions and bibasilar consolidation. No evidence for pneumothorax status post right central line placement with tip in distal superior vena cava Electronically Signed: Ruben Henry MD at 20:39 EST , Chest x-ray this morning was personally reviewed and shows a significant right lower lobe infiltrate with possible small effusions Charges/Coding Procedures Hospitalists Procedures: [id number] Critial Care 1st Hr
[2023-07-27] MEDS: Aspirin 81 MG TAB.CHEW PO (08:12)
[2023-07-27] MEDS: Ascorbic Acid 500 MG Tablet 1000 MG PO ×2 (08:12→16:34)
[2023-07-27] MEDS: Zinc Sulfate 50 mg zinc (220 mg) ORAL capsule PO (08:12)
[2023-07-27] MEDS: Clopidogrel Bisulfate 75 MG Tablet PO (08:12)
[2023-07-27] MEDS: Cholecalciferol (Vit D3) 125 MCG CAPSULE (5,000 UNITS) PO (08:12)
[2023-07-27 08:44] LABS: Partial Thromboplast Time 214.4 Seconds (24.1-36.2)
[2023-07-27] MEDS: Piperacil/Tazobactam 3.375 GM in 0.9% Normal Saline (50mL MB+) 50 ML IV ×2 (10:45→21:11)
--- NOTE | 2023-07-27 11:19 | PCM.CONS.C ---
Assessment & Plan Assessment/Plan (1) Elevated troponin I level: PLAN: Likely type II elevation in the setting of sepsis with influenza A pneumonia. Check 2D echocardiogram with Doppler. Continue aspirin. From a cardiovascular standpoint, the heparin infusion may be stopped if there is no other indication. Patient's BNP is noted to be markedly elevated. Likely has underlying congestive heart failure. Will check echo. Monitor respiratory status closely with him getting IV fluids. (2) Septic shock: PLAN: On norepinephrine infusion to support blood pressure. (3) Influenza A with pneumonia: PLAN: As per critical care. (4) CKD (chronic kidney disease) stage 4, GFR 15-29 ml/min: PLAN: Continue to monitor. Consider nephrology consult. HPI Consult Data Date of Consult: 07/27/23 HPI Narrative Reason for Consultation: Elevated troponin HPI Narrative: This gentleman has past medical history significant for hypertension, chronic kidney disease and anemia of chronic disease. He presented to the hospital with complaints of shortness of breath and cough. Also subjective history of fever. His chest x-ray showed bilateral pneumonia. Influenza A positive. Noted to be hypotensive. Admitted with diagnosis of septic shock with influenza A pneumonia. No history of heart disease as such. However he has been complaining of chronic lower extremity edema. He had recently admitted an outpatient appointment with us for evaluation but ended up in the hospital before that. [facility] Medical History (Updated 07/27/23 @ 11:[address] 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 Heart sounds 1 and 2 are noted. No murmurs or rubs are noted. Chest examination shows decreased air entry at bases. Alert. Oriented. 3+ bilateral ankle edema. Risk Stratification Risk Stratification Applicable: No Objective Data Vital Signs: Vital Signs Temp Pulse Resp BP Pulse Ox O2 Del Method O2 Flow Rate 99.7 F H 95 23 H 92/65 95 Room Air 1 07/27/23 10:00 07/27/23 11:00 07/27/23 11:00 07/27/23 11:00 07/27/23 11:00 07/27/23 11:00 07/27/23 10:00 Oxygen Flow Rate (L/min) 1 Oxygen Delivery Method Room Air Weight: 182 lb 15.739 oz Body Mass Index (BMI) 26.2 Intake & Output: Intake and Output for Last 24 Hours 07/25/23 07/26/23 07/27/23 23:59 23:59 23:59 Intake Total 305 / 305 3289.21 / 3289.21 Output Total 550 / 550 Balance 305 / 305 2739.21 / 2739.21 Lab / Micro Data 07/27/23 03:30 07/27/23 03:30 Labs: Laboratory Results - last 24 hr 07/26/23 00:00: D-Dimer Quant (PE/DVT) 9.89 H* 07/26/23 18:08: WBC 14.3 H, RBC 3.75 L, Hgb 10.4 L, Hct 32.1 L, MCV 85.6, MCH 27.7, MCHC 32.4, RDW Std Deviation 45.6 H, RDW Coeff of Yue 14.8 H, Plt Count 124 L, MPV 12.1 H, Immature Gran % (Auto) 0.800, Neut % (Auto) 87.3 H, Lymph % (Auto) 3.7 L, [place] % (Auto) 8.0, Eos % (Auto) 0.1, Baso % (Auto) 0.1, Absolute Neuts (auto) 12.5 H, Absolute Lymphs (auto) 0.53 L, Nucleated RBC % 0.6, Differential Comment SCANNED, Sodium 134 L, Potassium 4.5, Chloride 98, Carbon Dioxide 25.0, Anion Gap 11, BUN 104 H*, Creatinine 3.22 H, Estim Creat Clear Calc 18.60, Est GFR (MDRD) Af Amer 24 L, Est GFR (MDRD) Non-Af 20 L, BUN/Creatinine Ratio 32.3 H, Glucose 127 H, Calcium 8.6, Total Bilirubin 1.30 H, AST 62 H, ALT 129 H, Alkaline Phosphatase 268 H, Troponin I High Sens 135 H*, Total Protein 6.8, Albumin 2.8 L, Globulin 4.0, Albumin/Globulin Ratio 0.7 L 07/26/23 21:08: Lactic Acid 2.2 H* 07/26/23 22:29: Urine Color Yellow, Urine Clarity Clear, Urine pH 5.0, Ur Specific [place] 1.020, Urine Protein 30 H, Urine Glucose (UA) Normal, Urine Ketones Negative, Urine Occult Blood 50 H, Urine Nitrite Negative, Urine Bilirubin Negative, Urine Urobilinogen Normal, Ur Leukocyte Esterase 100 H, Urine RBC 10-25 SEEN, Urine WBC 5-10 SEEN, Ur Squamous Epith Cells 0 SEEN, Urine Bacteria 2+, Urine Mucus 0 SEEN 07/26/23 23:30: Urine Opiates Screen NEGATIVE, Urine Methadone Screen NEGATIVE, Ur Barbiturates Screen NEGATIVE, Ur Phencyclidine Scrn NEGATIVE, Ur Amphetamines Screen NEGATIVE, MDMA (Ecstasy) Screen NEGATIVE, U Benzodiazepines Scrn NEGATIVE, Urine Cocaine Screen NEGATIVE, U Cannabinoids Screen NEGATIVE, Ur Drug Screen Comment 07/26/23 23:55: Lactic Acid 3.1 H*, Total Creatine Kinase 108, Troponin I High Sens 128 H*, Prealbumin 4.2 L, TSH 4.22 H 07/26/23 : B-Natriuretic Peptide > 5000.0 H 07/27/23 00:00: APTT 40.9 H 07/27/23 03:30: WBC 14.4 H, RBC 3.44 L, Hgb 9.4 L, Hct 29.4 L, MCV 85.5, MCH 27.3, MCHC 32.0, RDW Std Deviation 45.1 H, RDW Coeff of Yue 14.7 H, Plt Count 101 L, MPV 11.5, Sodium 134 L, Potassium 4.4, Chloride 101, Carbon Dioxide 23.0, Anion Gap 10, BUN 103 H*, Creatinine 3.04 H, Estim Creat Clear Calc 20.34, Est GFR (MDRD) Af Amer 26 L, Est GFR (MDRD) Non-Af 21 L, BUN/Creatinine Ratio 33.9 H, Glucose 136 H, Lactic Acid 2.5 H*, Calcium 7.9 L, Troponin I High Sens 118 H, B-Natriuretic Peptide > 5000.0 H 07/27/23 07:55: APTT 214.4 H* Micro: Microbiology 07/26/23 23:30 Urine, Random Legionella Antigen - Final 07/26/23 23:30 Urine, Random Streptococcus pneumoniae Antigen (M - Final 07/26/23 21:10 Mucosa - Nasopharyngeal Influenza Types A,B Direct FA (DANIELA) - Final Influenzae A 07/26/23 21:10 Nasal Secretion SARS-CoV-2 Antigen (Rapid) - Final Rhythm Strip Rhythm Strip: Sinus Rhythm Cardiology Labs/Tests 07/26/23 00:00: D-Dimer Quant (PE/DVT) 9.89 H* 07/26/23 18:08: WBC 14.3 H, RBC 3.75 L, Hgb 10.4 L, Hct 32.1 L, MCV 85.6, MCH 27.7, MCHC 32.4, Plt Count 124 L, MPV 12.1 H, Immature Gran % (Auto) 0.800, Neut % (Auto) 87.3 H, Lymph % (Auto) 3.7 L, [place] % (Auto) 8.0, Eos % (Auto) 0.1, Baso % (Auto) 0.1, Absolute Neuts (auto) 12.5 H, Nucleated RBC % 0.6, Sodium 134 L, Potassium 4.5, Chloride 98, Carbon Dioxide 25.0, Anion Gap 11, BUN 104 H*, Creatinine 3.22 H, Est GFR (MDRD) Af Amer 24 L, Est GFR (MDRD) Non-Af 20 L, BUN/Creatinine Ratio 32.3 H, Glucose 127 H, Calcium 8.6, Total Bilirubin 1.30 H 07/26/23 21:08: Lactic Acid 2.2 H* 07/26/23 22:29: Urine Color Yellow, Urine Clarity Clear, Urine pH 5.0, Ur Specific [place] 1.020, Urine Protein 30 H, Urine Glucose (UA) Normal, Urine Ketones Negative, Urine Occult Blood 50 H, Urine Nitrite Negative, Urine Bilirubin Negative, Urine Urobilinogen Normal, Ur Leukocyte Esterase 100 H, Urine RBC 10-25 SEEN, Urine WBC 5-10 SEEN 07/26/23 23:55: Lactic Acid 3.1 H* 07/26/23 : B-Natriuretic Peptide > 5000.0 H 07/27/23 00:00: APTT 40.9 H 07/27/23 03:30: WBC 14.4 H, RBC 3.44 L, Hgb 9.4 L, Hct 29.4 L, MCV 85.5, MCH 27.3, MCHC 32.0, Plt Count 101 L, MPV 11.5, Sodium 134 L, Potassium 4.4, Chloride 101, Carbon Dioxide 23.0, Anion Gap 10, BUN 103 H*, Creatinine 3.04 H, Est GFR (MDRD) Af Amer 26 L, Est GFR (MDRD) Non-Af 21 L, BUN/Creatinine Ratio 33.9 H, Glucose 136 H, Lactic Acid 2.5 H*, Calcium 7.9 L, B-Natriuretic Peptide > 5000.0 H 07/27/23 07:55: APTT 214.4 H* Rhythm: EKG: ECG shows sinus rhythm with PVCs. ECHO: Stress Test: Cardiac Cath: PCI: CT Surgery: Holter monitor: EPS: PPM: CXR: Chest CT Scan: Radiography Diagnostic Testing: Radiology Impression Chest X-Ray 07/26/23 18:10 IMPRESSION: 1. Worse bibasilar airspace disease and pleural effusions. Electronically Signed: River Hdz MD ([place]) at 18:35 EST , Chest X-Ray 07/26/23 20:10 IMPRESSION: Small bilateral pleural effusions and bibasilar consolidation. No evidence for pneumothorax status post right central line placement with tip in distal superior vena cava Electronically Signed: Ruben Henry MD at 20:39 EST ,
[2023-07-27] MEDS: Acetaminophen 325 MG Tablet 650 MG PO (14:06)
[2023-07-27] MEDS: 0.9% Saline Lock 10 ML Syringe IV (16:34)
[2023-07-27] MEDS: Tamsulosin HCl 0.4 MG Capsule PO (16:34)
[2023-07-27 17:01] LABS: Partial Thromboplast Time 73.4 Seconds (24.1-36.2)
--- NOTE | 2023-07-27 17:46 | CON.PCM.RE_ITS ---
Assessment & Plan Assessment/Plan (1) NATALEE (acute kidney injury): (2) Chronic kidney disease, stage 3b: (3) Hypertension: (4) Septic shock: PLAN: Plan Impression/Plan: 78-year-old man with past history of chronic kidney disease stage G3b/A1, hypertension, HFpEF, BPH, osteoarthritis, and remote history of testicular cancer. The patient presents to the hospital with 4 to 6 weeks history of pro gressive weakness, malaise, dyspnea and cough. The patient is also experiencing increasing lower extremity edema over the past 2 to 4 weeks. He was admitted to hospital on 07/26/2023 with septic shock attributed to right lower lobe pneumonia due to influenza infection and possibly superimposed bacterial pneumonia. Nephrology is following the patient for acute kidney injury on chronic kidney disease. Acute kidney injury on chronic kidney disease stage G3b/A1. The patient has CKD from nephrosclerosis. Baseline serum creatinine has been around 2.00 mg/dL prior to this admission. Acute kidney injury with serum creatinine of 3.22 mg/dL on presentation is secondary to ischemic ATN related to septic shock. The patient had also been on losartan prior to admission. Low suspicion for other causes of NATALEE at this point. However, given his past history of BPH and urinary urgency, I agree with checking renal ultrasound to be complete. Agree with current treatment. Treatment of ATN is largely supportive. Agree with use of vasopressor to keep MAP above 65 mmHg. Agree with holding ARB. Since the patient is not hyperkalemic, severely acidotic or volume overloaded, t here is no urgent need for kidney replacement therapy. Recheck renal function, volume status, electrolytes, and acid-base status again tomorrow. History of hypertension. Holding losartan because of hypotension and NATALEE. Will continue to monitor BP. Septic shock. The patient is being treated for septic shock attributed to right lower lobe pneumonia. He has been diagnosed with influenza infection. He is getting oseltamavir. He is also receiving antibiotic for possible superimposed bacterial pneumonia. The patient is on IV vasopressor otherwise low-dose. Overall coordination of care as per hospital medicine and critical care services. HPI Consult Data Date of Consult: 07/27/23 HPI Narrative Reason for Consultation: Acute kidney injury HPI Narrative: YESIKA CHE is a 78-year-old man with past history of chronic kidney disease stage G3b/A1, hypertension, HFpEF, BPH, osteoarthritis, and remote history of testicular cancer. The patient is followed by my partner, Dr. Nur, for CKD. His baseline serum creatinine has been around 2.00 mg/dL. The patient presents to hospital on 07/26/2023 with dyspnea, cough and weakness. The symptoms have been progressively developing for the past 4-6 weeks prior to presentation. The patient is also developed increasing lower extremity edema which has been progressive for the past 2 to 4 weeks as well. The patient was diagnosed with right lower lobe pneumonia attributed to influenza infection. He was found to to be hypotensive on presentation and is now requiring IV vasopressor support. Nephrology is asked to see the patient because of acute kidney injury on chronic kidney disease. The patient presented with serum creatinine of 3.22 mg/dL on 07/26/2023. Serum creatinine gas treater of 07/27/2023 is 3.04 mg/dL. The patient is still dyspneic especially on exertion. He is no cough although it is nonproductive. He denies nausea or vomiting, but his appetite remains poor. Prior to admission, urine output has been declining although he denies urinary hesitancy, urgency, or incontinence. The patient denies chronic use of NSAIDs. The patient had been on losartan prior to admission to the hospital. [facility] Medical History (Updated 07/27/23 @ 18:[address] Rajat Delaney MD) (HFpEF) heart failure with preserved ejection fraction Anemia due to end stage renal disease Cataracts, bilateral CKD (chronic kidney disease) stage 4, GFR 15-29 ml/min Diastolic dysfunction Glaucoma Hypertension Testicular cancer Home Medications alfuzosin 10 mg tablet,extended release 24 hr 10 mg PO DAILY prostate 07/27/23 [History Last Taken Unknown] furosemide 40 mg tablet 40 mg PO DAILY water pill 07/27/23 [History Last Taken Unknown] Allergy/AdvReac Type Severity Reaction Status Date / Time No Known Allergies Allergy Verified 07/26/23 19:53 Surgical History H/O shoulder replacement History of hip replacement Status post bilateral knee replacements Social History household members: none Smoking Status: Never smoker substance use type: does not use ROS ROS Narrative Constitutional: There is weight loss, fatigue and malaise. HEENT: No visual change, double vision, scotomas. No rhinorrhea, epistaxis, or sinus pain. No tinnitus or hearing loss. No sore throat, odynophagia or gingival bleeding. Cardiovascular: No chest pain, shortness of breath, exercise intolerance, PND, orthopnea, edema, palpitation, or claudication. Respiratory: See HPI. Gastrointestinal: No abdominal pain, dysphagia, anorexia, nausea, vomiting, diarrhea, constipation, obstipation, hematemesis, hematochezia, melena, or tenesmus. Genitourinary: No incontinence, dysuria, gross hematuria, polyuria, or hesitancy. Musculoskeletal: No joint swelling, or crepitus, or functional deficit. The patient does have occasional joint pain and stiffness. Integumentary: No pruritus, rash, striae, wound, incision, acanthosis, tumors, or eczema. Neurological: No change in sight, smell, hearing, taste. There is no seizure, headache, numbness, poor balance, speech problem, cognitive disturbance. Psychiatric: No depression, anxiety, paranoia, anhedonia, or howard. Endocrine: No temperature intolerance, polydipsia, polyuria, polyphagia. Hematologic: No purpura, petechia, prolonged bleeding, or blood clots. Physical Exam Narrative General: Alert and oriented x3, NAD. HEENT: Normocephalic, atraumatic. Mucous membrane moist without erythema. PERRLA, EOMI. Hearing is intact. Neck: Supple, no JVD. Trachea is midline. No thyromegaly or lymphadenopathy. Cardiovascular: Normal S1, S2. There is a 3/6 systolic murmur. No rubs or gallops. Respiratory: There is expiratory wheezing bilaterally. Breath sounds decreased at bases posteriorly. Abdomen: Normal bowel sounds, soft, nontender, no guarding or rebound, no organomegaly. Extremities: The patient has 4+ lower extremity edema. No clubbing or cyanosis. Musculoskeletal: Full passive range of motion, no joint swelling. Psychiatric: Normal mood and affect. Skin: Warm and dry, no rash. Neurologic: Cranial nerve II to XII are grossly intact. No focal neurologic deficits. Lab / Micro Data 07/27/23 03:30 07/27/23 03:30 Labs: Laboratory Results - last 24 hr 07/26/23 00:00: D-Dimer Quant (PE/DVT) 9.89 H* 07/26/23 18:08: WBC 14.3 H, RBC 3.75 L, Hgb 10.4 L, Hct 32.1 L, MCV 85.6, MCH 27.7, MCHC 32.4, RDW Std Deviation 45.6 H, RDW Coeff of Yue 14.8 H, Plt Count 124 L, MPV 12.1 H, Immature Gran % (Auto) 0.800, Neut % (Auto) 87.3 H, Lymph % (Auto) 3.7 L, [place] % (Auto) 8.0, Eos % (Auto) 0.1, Baso % (Auto) 0.1, Absolute Neuts (auto) 12.5 H, Absolute Lymphs (auto) 0.53 L, Nucleated RBC % 0.6, Differential Comment SCANNED, Sodium 134 L, Potassium 4.5, Chloride 98, Carbon Dioxide 25.0, Anion Gap 11, BUN 104 H*, Creatinine 3.22 H, Estim Creat Clear Calc 18.60, Est GFR (MDRD) Af Amer 24 L, Est GFR (MDRD) Non-Af 20 L, BUN/Creatinine Ratio 32.3 H, Glucose 127 H, Calcium 8.6, Total Bilirubin 1.30 H, AST 62 H, ALT 129 H, Alkaline Phosphatase 268 H, Troponin I High Sens 135 H*, Total Protein 6.8, Albumin 2.8 L, Globulin 4.0, Albumin/Globulin Ratio 0.7 L 07/26/23 21:08: Lactic Acid 2.2 H* 07/26/23 22:29: Urine Color Yellow, Urine Clarity Clear, Urine pH 5.0, Ur Specific [place] 1.020, Urine Protein 30 H, Urine Glucose (UA) Normal, Urine Ketones Negative, Urine Occult Blood 50 H, Urine Nitrite Negative, Urine Bilirubin Negative, Urine Urobilinogen Normal, Ur Leukocyte Esterase 100 H, Urine RBC 10-25 SEEN, Urine WBC 5-10 SEEN, Ur Squamous Epith Cells 0 SEEN, Urine Bacteria 2+, Urine Mucus 0 SEEN 07/26/23 23:30: Urine Opiates Screen NEGATIVE, Urine Methadone Screen NEGATIVE, Ur Barbiturates Screen NEGATIVE, Ur Phencyclidine Scrn NEGATIVE, Ur Amphetamines Screen NEGATIVE, MDMA (Ecstasy) Screen NEGATIVE, U Benzodiazepines Scrn NEGATIVE, Urine Cocaine Screen NEGATIVE, U Cannabinoids Screen NEGATIVE, Ur Drug Screen Comment 07/26/23 23:55: Lactic Acid 3.1 H*, Total Creatine Kinase 108, Troponin I High Sens 128 H*, Prealbumin 4.2 L, TSH 4.22 H 07/26/23 : B-Natriuretic Peptide > 5000.0 H 07/27/23 00:00: APTT 40.9 H 07/27/23 03:30: WBC 14.4 H, RBC 3.44 L, Hgb 9.4 L, Hct 29.4 L, MCV 85.5, MCH 27.3, MCHC 32.0, RDW Std Deviation 45.1 H, RDW Coeff of Yue 14.7 H, Plt Count 101 L, MPV 11.5, Sodium 134 L, Potassium 4.4, Chloride 101, Carbon Dioxide 23.0, Anion Gap 10, BUN 103 H*, Creatinine 3.04 H, Estim Creat Clear Calc 20.34, Est GFR (MDRD) Af Amer 26 L, Est GFR (MDRD) Non-Af 21 L, BUN/Creatinine Ratio 33.9 H , Glucose 136 H, Lactic Acid 2.5 H*, Calcium 7.9 L, Troponin I High Sens 118 H, B-Natriuretic Peptide > 5000.0 H 07/27/23 07:55: APTT 214.4 H* 07/27/23 16:40: APTT 73.4 H Micro: Microbiology 07/26/23 23:30 Urine, Random Legionella Antigen - Final 07/26/23 23:30 Urine, Random Streptococcus pneumoniae Antigen (M - Final 07/26/23 21:10 Mucosa - Nasopharyngeal Influenza Types A,B Direct FA (DANIELA) - Final Influenzae A 07/26/23 21:10 Nasal Secretion SARS-CoV-2 Antigen (Rapid) - Final Rhythm Strip Rhythm Strip: Sinus Rhythm Imagaing Radiology Impression Chest X-Ray 07/26/23 18:10 IMPRESSION: 1. Worse bibasilar airspace disease and pleural effusions. Electronically Signed: River Hdz MD ([place]) at 18:35 EST Reading Location ID and State: [facility] / [place] , Service support , Chest X-Ray 07/26/23 20:10 IMPRESSION: Small bilateral pleural effusions and bibasilar consolidation. No evidence for pneumothorax status post right central line placement with tip in distal superior vena cava Electronically Signed: Ruben Henry MD at 20:39 EST Reading Location ID and State: [facility] / [place] Tel , Service support ,
[2023-07-27] MEDS: Oseltamivir Phosphate 30 MG Capsule PO (21:20)
[2023-07-27 23:53] LABS: Partial Thromboplast Time 88.1 Seconds (24.1-36.2)
[2023-07-28] VITALS (27 sets, daily range): BP systolic 87–104; BP diastolic 53–77; PULSE 92–105; RESP 20–31; TEMP 37.4–37.8; O2SAT 84–99; BMI 26.3
--- NOTE | 2023-07-28 | US_ITS ---
EXAM: US RETROPERITONEAL LIMITED, RENAL CLINICAL INDICATION: Severe acute on chronic kidney failure. TECHNIQUE: Limited grayscale and color Doppler sonographic evaluation of the retroperitoneum was performed. COMPARISON: No relevant prior studies available. FINDINGS: RIGHT KIDNEY: The right kidney measures 10.3 x 4.6 x 5.1 cm. The right renal cortex measures 1.4 cm. There is prominence of the right renal pelvis. No shadowing calculus. No perinephric collection is demonstrated. LEFT KIDNEY: The left kidney measures 10.1 x 5.5 x 5.1 cm. Left renal cortex measures 1.7 cm. No hydronephrosis. No shadowing calculus. No perinephric collection is demonstrated. BLADDER: Is a Morales catheter within the bladder. The bladder measures 3.8 x 6.0 x 5.5 cm for 65 mL. The urinary bladder wall measures 2 mm. PLEURAL SPACE: There is a small right-sided pleural effusion. US/Kidney and Bladder IMPRESSION: Prominence of the right renal pelvis. There is no hydronephrosis. There is a Morales catheter within bladder. Electronically Signed: Jacques Marshall MD at 17:03 EST ,
[2023-07-28] MEDS: 0.9% Normal Saline (250mL Bag) 250 ML 15 ML IV (04:09)
[2023-07-28] MEDS: HEPARIN/D5w 25,000 UNITS 25,000 UNITS/250 ML IV.SOLN. 7 UNITS CONT INF (04:10)
[2023-07-28] MEDS: Norepinephrine 8 MG in 0.9% Normal Saline (250mL Bag) 242 ML 7.5 MG CONT INF (04:10)
[2023-07-28] MEDS: 0.9% Saline Lock 10 ML Syringe IV ×2 (04:10→11:31)
[2023-07-28] MEDS: Vancomycin Trough/Random Due 1 LAB MC (05:28)
[2023-07-28 05:41] LABS: Absolute Lymphocyte Count 0.55 X10^3/uL (0.83-4.51); Absolute Neutrophil Count 18.3 X10^3/uL (2.0-7.7); Basophil# 0.02 X10^3/uL; Basophil% 0.1 % (0-1); Hematocrit 29.5 % (40-54); Hemoglobin 9.5 g/dL (13.0-16.5); Lymphocyte # 0.55 X10^3/ul (0.83-4.51); Lymphocyte % 2.7 % (19-41); Mean Corp Hgb Conc 32.2 g/dL (32-36); Mean Corpuscular Hgb 27.4 pg (27.0-32.0); Monocyte# 1.27 X10^3/uL; Monocyte% 6.2 % (0-10); NRBC Flagged by Analyzer 0.1 % (0-5); Neutrophil # 18.34 X10^3/uL (2.7-7.7); Neutrophil % 90.1 % (47-70); POSITIVE DIFFERENTIAL YES; Platelet Count 127 K/mm3 (150-450); RBC Distribution Width CV 14.9 % (11.6-14.6); RBC Distribution Width SD 45.5 fl (35.1-43.9); Red Blood Count 3.47 M/mm3 (4.6-6.2); White Blood Count 20.4 K/mm3 (4.4-11.0)
[2023-07-28 05:58] LABS: ALB/GLOB Ratio 0.6 RATIO (0.9-2.4); AST(SGOT) 80 U/L (15-37); Alanine Aminotransfer ALT/SGPT 130 U/L (16-61); Albumin, Serum 2.2 g/dL (3.2-5.0); Alkaline Phosphatase 218 U/L (45-117); Anion Gap 9 (5-15); BUN 94 mg/dL (7-18); BUN/Creat Ratio 34.2 RATIO (10-20); Calcium,Total 7.8 mg/dL (8.5-10.1); Chloride 102 mmol/L (98-107); Creatinine, Serum 2.75 mg/dL (0.70-1.30); Differential Indicated SCAN CRITERIA MET; EST Glomerular Filtration Rate 24 mL/min (>60); Est Glom Filt Rate - Afr Amer 29 mL/min (>60); Estimated Creatinine Clearance 22.49 ml/min; Globulin 3.4 g/dL (2.2-4.2); Glucose 106 mg/dL (74-106); Magnesium 2.6 mg/dL (1.6-2.6); Phosphorus 4.1 mg/dL (2.5-4.9); Potassium 3.9 mmol/L (3.5-5.1); Protein, Total 5.6 g/dL (6.4-8.2); Sodium Level 136 mmol/L (136-145); Vancomycin, Random Level 18.5 ug/mL (0.0-15.0)
--- NOTE | 2023-07-28 06:10 | PCM.RX.CS ---
Consult Antibiotic Management Pharmacy has been consulted to manage selected antiobiotic: Vancomycin Type of Intervention Type of Consult: Follow-up Suspected Infection Suspected Infection: Pneumonia Labs Labs: Sodium 136 mmol/L (136-145) 07/28/23 05:20 Potassium 3.9 mmol/L (3.5-5.1) 07/28/23 05:20 Chloride 102 mmol/L (98-107) 07/28/23 05:20 Carbon Dioxide 25.0 mmol/L (21.0-32.0) 07/28/23 05:20 Anion Gap 9 (5-15) 07/28/23 05:20 BUN 94 mg/dL (7-18) H 07/28/23 05:20 Creatinine 2.75 mg/dL (0.70-1.30) H 07/28/23 05:20 Est GFR (MDRD) Af Amer 29 mL/min (>60) L 07/28/23 05:20 Est GFR (MDRD) Non-Af 24 mL/min (>60) L 07/28/23 05:20 BUN/Creatinine Ratio 34.2 RATIO (10-20) H 07/28/23 05:20 Glucose 106 mg/dL (74-106) 07/28/23 05:20 Random Vancomycin 18.5 ug/mL (0.0-15.0) H 07/28/23 05:20 Microbiology Microbiology: Microbiology 07/26/23 23:30 Urine, Random Legionella Antigen - Final 07/26/23 23:30 Urine, Random Streptococcus pneumoniae Antigen (M - Final 07/26/23 21:10 Mucosa - Nasopharyngeal Influenza Types A,B Direct FA (DANIELA) - Final Influenzae A 07/26/23 21:10 Nasal Secretion SARS-CoV-2 Antigen (Rapid) - Final Dosing Weight Weight used for dosin.4 kg Estimated Creatinine Clearance Estimated Creatinine Clearance: 22.5 Goal Trough Goal Trough: 15-20 mcg/mL Pharmacy Plan for Drug Dosing Pharmacy Plan for Drug Dosing: Random vancomycin level drawn 07/28/23 a.m. was 18.5. CrCl has improved to >20, so a vanco dose of 750mg q24h will be started. A trough level will be drawn prior to third dose. Pharmacy Service will continue to monitor and adjust dosing as required. Follow-Up Labs Follow-Up Labs: Trough: Vancomycin Date/Time Labs Ordered Labs to be done on [date and time ordered]: 07/30/23 @1132
[2023-07-28 06:23] LABS: Partial Thromboplast Time 58.2 Seconds (24.1-36.2)
[2023-07-28] MEDS: Vancomycin HCl 750 MG in 0.9% Normal Saline (250mL Bag) 250 ML 250 MG IV (06:26)
[2023-07-28 06:38] LABS: Burr Cells 1+; Differential Comment SCANNED; Target Cells 2+
[2023-07-28 07:11] LABS: Blood Gas Specimen Type VEN; O2 Delivery Device Not entered; SITE Not entered; VBG BASE EXCESS -4 mmol/L (-1.0-3.5); VBG Bicarbonate 21 mmol/L (22-26); VBG PO2 29 mmHg (25-40); VBG SO2 52 % (50-70); VBG TCO2 22 mmol/L (23-33); VBG pCO2 37.5 mmHg (41-51); VBG pH 7.36 (7.32-7.42)
--- NOTE | 2023-07-28 07:11 | PN.CC_ITS ---
Assessment & Plan Assessment/Plan (1) Septic shock: (2) Acute kidney injury superimposed on CKD: (3) Pneumonia of both lower lobes: QUALIFIERS: Pneumonia type: due to unspecified organism Qualified Code(s): J18.9 - Pneumonia, unspecified organism PLAN: Plan RECOMMENDATIONS: 1. Continue pressors to maintain a MAP greater than 65 2. Agree with broadening antibiotics to Vanco and Zosyn pending cultures 3. Wean supplemental oxygen as tolerated 4. Hold on diuresis for now given pressors 5. Await echocardiogram 6. Potentially transition to 10 a inhibitor tomorrow 7. Potentially treat for 10 days even if culture negative given antibiotics before cultures IMPRESSIONS: 1. Septic shock secondary to right lower lobe pneumonia secondary to influenza Unclear if patient has a secondary infection such as Staph aureus associat ed with influenza. Respiratory status is doing well, but patient does not have any history of lung pathology or smoking. Will continue with broad-spectrum antibiotics for now pending cultures. Unfortunately, patient did receive antibiotics prior to cultures, so may need 10 days of treatment despite negative cultures. Patient is on pressors at this time, so diuresis will have to be held. Patient did have some mild increase in leukocytosis following appropriate antibiotics 2. Acute hypoxic respiratory insufficiency Patient does not have a history of needs of supplemental oxygen previously. Patient does have a right lower lobe infiltrate noted on chest x-ray. Will likely need a follow-up x-ray to be sure this resolves. No indication for BiPAP or ABG at this time from my perspective. Will continue with supportive care. Unclear if patient may have an element of central sleep apnea overnight given cardiac strain. 3. Acute on chronic kidney disease Nephrology consulted. Slowly improving. True baseline creatinine unclear at this time, but appears to be at least stage IIIb. Clinical suspicion for prerenal etiology secondary to problem #1 and possible congestive heart failure. Patient recently did receive diuretics. It does appear the patient is slightly delayed in presentation. Patient is making urine at this time and function appears to be slightly improved over short hospital course. No indication for renal replacement therapy at this time, but it is possible moving forward. 4. Congestive heart failure Cardiology consulted. Patient with significant lower extremity edema. Unfortunately, no echocardiogram is available for evaluation of systolic and diastolic function. Will hold on any diuresis for now given problem #1 and need for pressors. Patient is on a heparin drip, but clinical suspicion is elevated troponin is secondary to supply demand mismatch. Likely transition heparin to 10 a inhibitor after 24 to 48 hours pending echo results. 5. Thrombocytopenia/advanced age/poor historian/hyperlipidemia/history of testicular cancer/hypertension Complicates care, management, recovery and prognosis. Clinical suspicion is for thrombocytopenia secondary to problem #1. Patient is on heparin at this time. Will hold antihypertensives given problem #1 also. Okay to continue with statin from my perspective. TIME: 37 minutes critical care time spent addressing patient's septic shock, hyp oxia, CHF, acute kidney injury, review of all data and collaboration with care team Subjective Subjective Patient did well overnight. Patient subjectively feels improved in every way compared to admission. Patient did have significant hypoxia overnight with sleeping and had to be placed back on nasal cannula oxygen. Patient is not reporting any current chest pain. Cough is reportedly improved. Patient has been tolerating p.o. without nausea or vomiting. Objective Data Objective Data Preliminary report on lower extremity Dopplers as patient has bilateral DVTs Vital Signs: Vital Signs Temp Pulse Resp BP Pulse Ox O2 Del Method O2 Flow Rate 37.4 C H 97 25 H 90/67 97 Nasal Cannula 2 07/28/23 07:00 07/28/23 07:00 07/28/23 07:00 07/28/23 07:00 07/28/23 07:00 07/28/23 07:00 07/28/23 07:00 Oxygen Flow Rate (L/min) 2 Oxygen Delivery Method Nasal Cannula Weight: 83.416 kg Body Mass Index (BMI) 26.3 Intake & Output: Intake and Output for Last 24 Hours 07/26/23 07/27/23 07/28/23 23:59 23:59 23:59 Intake Total 305 / 305 3909.88 / 3917.38 241.61 / 241.61 Output Total 1010 / 1010 350 / 350 Balance 305 / 305 2899.88 / 2907.38 -108.39 / -108.39 Lab / Micro Data Attestation: I reviewed the patient's lab results. 07/28/23 05:20 07/28/23 05:20 Labs: Laboratory Results - last 24 hr 07/27/23 03:30: Sodium 134 L, Potassium 4.4, Chloride 101, Carbon Dioxide 23.0, Anion Gap 10, BUN 103 H*, Creatinine 3.04 H, Estim Creat Clear Calc 20.34, Est GFR (MDRD) Af Amer 26 L, Est GFR (MDRD) Non-Af 21 L, BUN/Creatinine Ratio 33.9 H , Glucose 136 H, Calcium 7.9 L 07/27/23 07:55: APTT 214.4 H* 07/27/23 16:40: APTT 73.4 H 07/27/23 23:10: APTT 88.1 H 07/28/23 05:20: WBC 20.4 H, RBC 3.47 L, Hgb 9.5 L, Hct 29.5 L, MCV 85.0, MCH 27.4, MCHC 32.2, RDW Std Deviation 45.5 H, RDW Coeff of Yue 14.9 H, Plt Count 127 L, MPV 11.0, Immature Gran % (Auto) 0.900, Neut % (Auto) 90.1 H, Lymph % (Auto) 2.7 L, [place] % (Auto) 6.2, Eos % (Auto) 0.0, Baso % (Auto) 0.1, Absolute Neuts (auto) 18.3 H, Absolute Lymphs (auto) 0.55 L, Nucleated RBC % 0.1, Differential Comment SCANNED, Target Cells 2+, [place] Cells 1+, APTT 58.2 H, Sodium 136, Potassium 3.9, Chloride 102, Carbon Dioxide 25.0, Anion Gap 9, BUN 94 H, Creatinine 2.75 H, Estim Creat Clear Calc 22.49, Est GFR (MDRD) Af Amer 29 L, Est GFR (MDRD) Non-Af 24 L, BUN/Creatinine Ratio 34.2 H, Glucose 106, Calcium 7.8 L, Phosphorus 4.1, Magnesium 2.6, Total Bilirubin 1.20 H, AST 80 H, ALT 130 H, Alkaline Phosphatase 218 H, Total Protein 5.6 L, Albumin 2.2 L, Globulin 3.4, Albumin/Globulin Ratio 0.6 L, Random Vancomycin 18.5 H Micro: Microbiology 07/26/23 23:30 Urine, Random Legionella Antigen - Final 07/26/23 23:30 Urine, Random Streptococcus pneumoniae Antigen (M - Final 07/26/23 21:10 Mucosa - Nasopharyngeal Influenza Types A,B Direct FA (DANIELA) - Final Influenzae A 07/26/23 21:10 Nasal Secretion SARS-CoV-2 Antigen (Rapid) - Final Radiography Diagnostic Testing: Radiology Impression Chest X-Ray 07/27/23 06:38 IMPRESSION: No significant change in the appearance of the chest. Right-sided PICC line in stable position. Electronically Signed: Jacques Marshall MD at 0:05 EST , Rhythm Strip Rhythm Strip: Sinus Rhythm Rate: 95 Physical Exam Const alert, no apparent distress and average body habitus Constitutional Narrative: Readily interacts, but very poor historian. General Appearance: cooperative HEENT normocephalic and head/scalp atraumatic General Ear: hearing grossly impaired Eyes EOMs intact bilaterally and conjunctivae normal Eyes Narrative: Some cloudiness noted of the left eye Neck no lymphadenopathy, supple and no JVD Neck Narrative: Patient has bruising over the lateral sides of his neck from previous EJ attempts. There is no signs of active bleeding or infection at this time. Chest Chest Narrative: Right subclavian noted. Some bright red blood noted under dressing Resp Resp Narrative: No conversational dyspnea noted Effort and Inspection: Negative for tachypneic Auscultation: rhonchi right lower; Negative for rales or wheezes Cardio regular rate and regular rhythm Cardio Narrative: Mild grade 2 out of 6 systolic ejection murmur at the lower sternal border. Heart Sounds: murmur systolic II/ low-pitched mid right sternal border GI normal to inspection, nondistended, normoactive bowel sounds, soft to palpation, non-tender and non-distended Extremity General Extremity: edema bilateral (4+) lower extremity; Negative for clubbing Skin no rashes or lesions noted General Skin Exam: Negative for mottling Neuro CN's II-XII intact bilaterally, moves all extremities and no focal motor deficits Speech: speech normal Psych cooperative and affect normal Charges/Coding Procedures Hospitalists Procedures: 63370 Critial Care 1st Hr
[2023-07-28] MEDS: Cholecalciferol (Vit D3) 125 MCG CAPSULE (5,000 UNITS) PO (08:04)
[2023-07-28] MEDS: Clopidogrel Bisulfate 75 MG Tablet PO (08:04)
[2023-07-28] MEDS: Ascorbic Acid 500 MG Tablet 1000 MG PO ×2 (08:04→17:29)
[2023-07-28] MEDS: Zinc Sulfate 50 mg zinc (220 mg) ORAL capsule PO (08:04)
[2023-07-28] MEDS: Aspirin 81 MG TAB.CHEW PO (08:04)
[2023-07-28] MEDS: Piperacil/Tazobactam 3.375 GM in 0.9% Normal Saline (50mL MB+) 50 ML IV ×3 (09:17→22:15)
--- NOTE | 2023-07-28 11:07 | PCM.PN.HOSP ---
Reason for Visit Reason for Visit: Shortness of breath/cough/malaise Subjective Subjective No significant issues overnight. Still remains on 4 of Levophed. Was found to have bilateral lower extremity DVTs more extensive on the left than the right so he does remain on a heparin drip. Renal function is improving. His daughter is at the bedside and she does feel he looks better today. Clinically I agree. Discussed overall findings and plan of care with her. Objective Data Objective Data Vital Signs: Vital Signs Temp Pulse Resp BP Pulse Ox O2 Del Method O2 Flow Rate 99.4 F H 96 31 H 87/67 L 95 Nasal Cannula 2 07/28/23 10:00 07/28/23 10:00 07/28/23 10:00 07/28/23 10:00 07/28/23 10:00 07/28/23 10:00 07/28/23 10:00 Oxygen Flow Rate (L/min) 2 Oxygen Delivery Method Nasal Cannula Weight: 83.416 kg Body Mass Index (BMI) 26.3 Intake & Output: Intake and Output for Last 24 Hours 07/26/23 07/27/23 07/28/23 23:59 23:59 23:59 Intake Total 305 / 305 3909.88 / 3917.38 529.11 / 529.11 Output Total 1010 / 1010 350 / 350 Balance 305 / 305 2899.88 / 2907.38 179.11 / 179.11 Lab / Micro Data 07/28/23 05:20 07/28/23 05:20 Labs: Laboratory Results - last 24 hr 07/27/23 16:40: APTT 73.4 H 07/27/23 23:10: APTT 88.1 H 07/28/23 05:20: WBC 20.4 H, RBC 3.47 L, Hgb 9.5 L, Hct 29.5 L, MCV 85.0, MCH 27.4, MCHC 32.2, RDW Std Deviation 45.5 H, RDW Coeff of Yue 14.9 H, Plt Count 127 L, MPV 11.0, Immature Gran % (Auto) 0.900, Neut % (Auto) 90.1 H, Lymph % (Auto) 2.7 L, [place] % (Auto) 6.2, Eos % (Auto) 0.0, Baso % (Auto) 0.1, Absolute Neuts (auto) 18.3 H, Absolute Lymphs (auto) 0.55 L, Nucleated RBC % 0.1, Differential Comment SCANNED, Target Cells 2+, [place] Cells 1+, APTT 58.2 H, Sodium 136, Potassium 3.9, Chloride 102, Carbon Dioxide 25.0, Anion Gap 9, BUN 94 H, Creatinine 2.75 H, Estim Creat Clear Calc 22.49, Est GFR (MDRD) Af Amer 29 L, Est GFR (MDRD) Non-Af 24 L, BUN/Creatinine Ratio 34.2 H, Glucose 106, Calcium 7.8 L, Phosphorus 4.1, Magnesium 2.6, Total Bilirubin 1.20 H, AST 80 H, ALT 130 H, Alkaline Phosphatase 218 H, Total Protein 5.6 L, Albumin 2.2 L, Globulin 3.4, Albumin/Globulin Ratio 0.6 L, Random Vancomycin 18.5 H Micro: Microbiology 07/27/23 07:55 Urine Catheter - Morales Urine Culture - Preliminary Culture exhibits no growth. 07/26/23 23:30 Urine, Random Legionella Antigen - Final 07/26/23 23:30 Urine, Random Streptococcus pneumoniae Antigen (M - Final 07/26/23 21:10 Mucosa - Nasopharyngeal Influenza Types A,B Direct FA (DANIELA) - Final Influenzae A 07/26/23 21:10 Nasal Secretion SARS-CoV-2 Antigen (Rapid) - Final ABG Data ABG results: ABG 07/27/23 03:37 Specimen Type ZULEIKA Sample Site Not entered VBG pH 7.36 VBG pO2 29 VBG HCO3 21 L VBG Total CO2 22 L VBG O2 Sat (Calc) 52 VBG Base Excess -4 L POC Mix VBG pCO2 Pt Tmp 37.5 L O2 Delivery Device Not entered Radiography Diagnostic Testing: Radiology Impression Echocardiogram 07/26/23 23:30 Interpretation Summary Mildly dilated left ventricle. Mild concentric left ventricular hypertrophy. Severe global left ventricular systolic dysfunction. The left ventricular ejection fraction is 15 %. Stage 2 diastolic dysfunction. Moderate to severe mitral valve regurgitation Mild tricuspid valve insufficiency. Right ventricular systolic pressure estimated to be 52 mmHg. Severe aortic stenosis. Valve area estimated at 0.6 cm??. Mild (1+) aortic valve insufficiency. The study was technically difficult. Ordering Physician: Osmar Best Referring Physician: Marisel Che Performed By: Kevin Abarca RCS Chest X-Ray 07/27/23 06:38 IMPRESSION: No significant change in the appearance of the chest. Right-sided PICC line in stable position. Electronically Signed: Jacques Marshall MD at 0:05 EST , Rhythm Strip Rhythm Strip: Sinus Rhythm Rate: 95 Physical Exam Const alert, oriented x3, no apparent distress and average body habitus Constitutional Narrative: Elderly, white male, sitting up in bed eating breakfast, daughter at bedside, patient appears older than stated age, currently appears comfortable and nontoxic HEENT normocephalic, head/scalp atraumatic, hearing grossly normal bilaterally and moist oral mucous membranes HEENT Narrative: Dentition is fair, Mallampati is 2, no thrush Neck no JVD Resp normal respiratory effort, no retractions, no use of accessory muscles and No clear to auscultation bilaterally Resp Narrative: Crackles at bases bilaterally Auscultation: crackles; Negative for rhonchi or wheezes Cardio regular rate, regular rhythm, S1 normal heart sound, S2 normal heart sound, no rub, no gallops and no clicks; Negative for no murmurs Cardio Narrative: 2 out of 6 systolic murmur loudest at left lower sternal border GI normal to inspection, nondistended, normoactive bowel sounds, soft to palpation and non-tender Extremity Extremity Narrative: small amount of mottling at distal bilateral lower extremities with 4+ pitting edema bilateral lower extremities, no cyanosis or clubbing Skin Skin Narrative: Right subclavian triple-lumen catheter in place with oozing around site due to heparin Neuro oriented x3, moves all extremities and no focal motor deficits Neuro Narrative: Generalized weakness noted-proximal greater than distal Sensorium / Orientation: awake, alert, oriented to person and oriented to place Speech: speech normal Psych affect normal Psych Narrative: Eye contact is good, patient is pleasant Assessment & Plan Assessment/Plan (1) Septic shock: (2) D-dimer, elevated: (3) Elevated troponin: (4) Acute kidney injury superimposed on CKD: (5) Hypoxia: (6) Thrombocytopenia: (7) Influenza A H1N1 infection: (8) Leukocytosis: (9) Transaminitis: (10) Cardiomyopathy: (11) DVT, bilateral lower limbs: (12) Severe aortic stenosis: (13) Severe mitral valve regurgitation: (14) Diastolic dysfunction: PLAN: Plan Septic shock secondary to influenza A, +/- superimposed bacterial pneumonia -Cultures all remain pending -Continue broad-spectrum antibiotics -Continue Tamiflu -Currently on pressors--> wean as able -Stable on 4 mcg/min however unable to wean the last 24 hours -Critical care medicine --> discussed case with in tube conversion technician Influenza A -Tamiflu as above -Supportive care Acute hypoxia -Patient shows no signs of respiratory failure remains on 2 L nasal cannula -Continue supplemental oxygen as needed and wean as able -Echo was performed and showed depressed EF Bilateral lower extremity DVTs -Continue heparin drip -Will need long-term oral anticoagulation likely with Coumadin but could consider Eliquis depending on renal function Cardiomyopathy -Echocardiogram shows an EF of 15% with stage II diastolic dysfunction, severe global dysfunction is noted along with moderate to severe mitral valve regurgitation indicating his EF might actually even be lower than 15%, right ventricular systolic pressure is 52 mmHg and he has severe aortic stenosis with a valve area of 0.6 cm -Cardiology is following -Will trial 20 mg of IV Lasix x 1 dose as he may benefit both from his hemodynamics and overall status from diuresis if we can get him back on the [place]. -Await further cardiology recommendation Severe aortic stenosis/moderate to severe mitral valve regurgitation -Will be preload dependent so once able to diurese we will have to be sure not to diurese too aggressively -Cardiology is following and will need to await further input echocardiogram has been resulted Lactic acidosis -Likely related to hypotension and decreased clearance due to NATALEE on CKD -Trending down Thrombocytopenia-acute -Suspect related to acute illness and possibly consumption with bilateral lower extremity DVT -Seems to be stabilizing and actually trending up -Will continue monitor Troponin elevation -suspect stress induced ischemia and related to his cardiomyopathy -Continue aspirin/Plavix -Echocardiogram as noted above -Cardiology is following Leukocytosis -Suspect related to the above -Continue to monitor -Continue broad-spectrum antibiotics and await cultures Mild transaminitis -May be related to acute infection as well as his cardiomyopathy and him being off Star[place] curve -Will trend -Elevations are mild NATALEE on CKD stage IV -Baseline serum creatinine appears to be between 1.7 and 2.0 -Serum creatinine on presentation was greater than 3--> trending down to 2.7 today -Continue to monitor closely -Nephrology is following -No current needs for renal replacement therapy -Avoid nephrotoxins as able -Renally dose medications -Renal ultrasound is pending read History of hypertension -Patient has been hypotensive and on pressors -Continue to monitor -Will need to obtain home medication list History of glaucoma -Home medication list is pending and will initiate any medications after obtained Hyperlipidemia -Continue home statin 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
[2023-07-28] MEDS: Furosemide 20 MG/2 ML VIAL IV (11:31)
[2023-07-28 12:24] LABS: Partial Thromboplast Time 79.6 Seconds (24.1-36.2)
[2023-07-28] MEDS: Furosemide 40 MG/4 ML Vial IV (13:05)
--- NOTE | 2023-07-28 14:06 | PN.CARD_ITS ---
Subjective Subjective Feels a little better. He believes his breathing is improved. Objective Data Vital Signs: Vital Signs Temp Pulse Resp BP Pulse Ox O2 Del Method O2 Flow Rate 99.4 F H 96 31 H 87/67 L 95 Nasal Cannula 2 07/28/23 10:00 07/28/23 10:00 07/28/23 10:00 07/28/23 10:00 07/28/23 10:00 07/28/23 11:24 07/28/23 11:24 Oxygen Flow Rate (L/min) 2 Oxygen Delivery Method Nasal Cannula Weight: 183 lb 14.4 oz Body Mass Index (BMI) 26.3 Intake & Output: Intake and Output for Last 24 Hours 07/26/23 07/27/23 07/28/23 23:59 23:59 23:59 Intake Total 305 / 305 3909.88 / 3917.38 1100.07 / 1100.07 Output Total 1010 / 1010 675 / 675 Balance 305 / 305 2899.88 / 2907.38 425.07 / 425.07 Lab / Micro Data 07/28/23 05:20 07/28/23 05:20 Labs: Laboratory Results - last 24 hr 07/27/23 16:40: APTT 73.4 H 07/27/23 23:10: APTT 88.1 H 07/28/23 05:20: WBC 20.4 H, RBC 3.47 L, Hgb 9.5 L, Hct 29.5 L, MCV 85.0, MCH 27.4, MCHC 32.2, RDW Std Deviation 45.5 H, RDW Coeff of Yue 14.9 H, Plt Count 127 L, MPV 11.0, Immature Gran % (Auto) 0.900, Neut % (Auto) 90.1 H, Lymph % (Auto) 2.7 L, [place] % (Auto) 6.2, Eos % (Auto) 0.0, Baso % (Auto) 0.1, Absolute Neuts (auto) 18.3 H, Absolute Lymphs (auto) 0.55 L, Nucleated RBC % 0.1, Diffe rential Comment SCANNED, Target Cells 2+, [place] Cells 1+, APTT 58.2 H, Sodium 136, Potassium 3.9, Chloride 102, Carbon Dioxide 25.0, Anion Gap 9, BUN 94 H, Creatinine 2.75 H, Estim Creat Clear Calc 22.49, Est GFR (MDRD) Af Amer 29 L, Est GFR (MDRD) Non-Af 24 L, BUN/Creatinine Ratio 34.2 H, Glucose 106, Calcium 7.8 L, Phosphorus 4.1, Magnesium 2.6, Total Bilirubin 1.20 H, AST 80 H, ALT 130 H, Alkaline Phosphatase 218 H, Total Protein 5.6 L, Albumin 2.2 L, Globulin 3.4, Albumin/Globulin Ratio 0.6 L, Random Vancomycin 18.5 H 07/28/23 12:05: APTT 79.6 H Micro: Microbiology 07/26/23 23:45 Nasal Secretion Nasal Screen MRSA/MSSA - Final 07/27/23 07:55 Urine Catheter - Morales Urine Culture - Preliminary Culture exhibits no growth. ABG Data ABG results: ABG 07/27/23 03:37 Specimen Type ZULEIKA Sample Site Not entered VBG pH 7.36 VBG pO2 29 VBG HCO3 21 L VBG Total CO2 22 L VBG O2 Sat (Calc) 52 VBG Base Excess -4 L POC Mix VBG pCO2 Pt Tmp 37.5 L O2 Delivery Device Not entered Rhythm Strip Rhythm Strip: Sinus Rhythm Rate: 95 Cardiology Labs/Tests 07/27/23 03:37: VBG pH 7.36, VBG pO2 29, VBG HCO3 21 L, VBG O2 Sat (Calc) 52, VBG Base Excess -4 L 07/27/23 16:40: APTT 73.4 H 07/27/23 23:10: APTT 88.1 H 07/28/23 05:20: WBC 20.4 H, RBC 3.47 L, Hgb 9.5 L, Hct 29.5 L, MCV 85.0, MCH 27.4, MCHC 32.2, Plt Count 127 L, MPV 11.0, Immature Gran % (Auto) 0.900, Neut % (Auto) 90.1 H, Lymph % (Auto) 2.7 L, [place] % (Auto) 6.2, Eos % (Auto) 0.0, Baso % (Auto) 0.1, Absolute Neuts (auto) 18.3 H, Nucleated RBC % 0.1, APTT 58.2 H, Sodium 136, Potassium 3.9, Chloride 102, Carbon Dioxide 25.0, Anion Gap 9, BUN 94 H, Creatinine 2.75 H, Est GFR (MDRD) Af Amer 29 L, Est GFR (MDRD) Non-Af 24 L , BUN/Creatinine Ratio 34.2 H, Glucose 106, Calcium 7.8 L, Phosphorus 4.1, Magnesium 2.6, Total Bilirubin 1.20 H 07/28/23 12:05: APTT 79.6 H Rhythm: EKG: ECHO: Stress Test: Cardiac Cath: PCI: CT Surgery: Holter monitor: EPS: PPM: CXR: Chest CT Scan: Radiography Diagnostic Testing: Radiology Impression Echocardiogram 07/26/23 23:30 Interpretation Summary Mildly dilated left ventricle. Mild concentric left ventricular hypertrophy. Severe global left ventricular systolic dysfunction. The left ventricular ejection fraction is 15 %. Stage 2 diastolic dysfunction. Moderate to severe mitral valve regurgitation Mild tricuspid valve insufficiency. Right ventricular systolic pressure estimated to be 52 mmHg. Severe aortic stenosis. Valve area estimated at 0.6 cm??. Mild (1+) aortic valve insufficiency. The study was technically difficult. Ordering Physician: Osmar Best Referring Physician: Marisel Che Performed By: Kevin Abarca RCS Chest X-Ray 07/27/23 06:38 IMPRESSION: No significant change in the appearance of the chest. Right-sided PICC line in stable position. Electronically Signed: Jacques Marshall MD at 0:05 EST , Physical Exam Narrative Comfortable. No apparent distress. Heart sounds 1 and 2 are noted. Extra beats noted. Chest examination shows decreased air entry at bilateral bases. 3+ ankle edema. Assessment & Plan Assessment/Plan (1) Elevated troponin I level: PLAN: Likely type II elevation in the setting of sepsis with influenza A pneumonia. Continue aspirin. (2) Septic shock: PLAN: On norepinephrine infusion to support blood pressure. Combination septic and cardiogenic shock. Clinically he is improved. Continue to monitor. (3) Cardiomyopathy: PLAN: LVEF 15%. Monitor inputs and outputs closely. If there is any clinical deterioration, then will consider giving a trial of low-dose dobutamine or milrinone infusion. (4) Severe aortic stenosis: PLAN: Will need consideration for TAVR as outpatient. (5) Moderate to severe mitral regurgitation: PLAN: Monitor fluid intake and output. (6) Influenza A with pneumonia: PLAN: As per critical care. (7) CKD (chronic kidney disease) stage 4, GFR 15-29 ml/min: PLAN: Continue to monitor. Consider nephrology consult. PLAN: Plan Overall prognosis remains guarded.
--- NOTE | 2023-07-28 14:37 | CASEMGMT ---
MARJORIE LAMBERT Assessment: Face to Face with pt for initial transition planning/care coordination assessment. RN PETRA introduced self and role at [facility], pt voices understanding and consents to assessment. Pt is A&O x4 and answers all questions appropriately at this time. Pt sitting up in chair in no distress on RA. Care providers, pharmacy, and demographics verified/updated. Admitting Dx: bilat pna, sepsis, elevated troponin PCP:[facility] Specialists:Boom nephjoseph; Pt was to see on 08/24 with [facility] Preferred Pharmacy: [facility] Insurance: [employer] [facility] Prescription Benefit: yes LNOK: Marisa Quintana, dtr; Kevin Guadalupe, son Living Arrangements: Pt lives alone in a single story home with 3 steps to enter with a rail. Pt reports prior to hospitalization he was I in ADL's. Pt reports he got his own meals, did laundry and got groceries. Transportation: Pt drives self and denies concerns with transportation. DME:CHANDRIKA murilloW, tub bench- Did not use [facility] HHC/SNF: Denies hx of [facility], has been to [facility] for Rehab after a knee replacement Pt states he has been discussing with his children the possibility of SNF vs going to one of their homes which are out of the [facility]. Pt had OT today, PT to [facility]. Pt states no further concerns/needs. CM to follow. Advised pt to ask CM if any further question/concerns/needs arise, voices understanding. Pt Goal: TBD, discussing with family Plan: TBD, to family home with HHC vs SNF; follow anticoag
[2023-07-28] MEDS: Tamsulosin HCl 0.4 MG Capsule PO (17:26)
[2023-07-28 18:21] LABS: Partial Thromboplast Time 60.7 Seconds (24.1-36.2)
[2023-07-28] MEDS: Oseltamivir Phosphate 30 MG Capsule PO (22:15)
[2023-07-28] MEDS: Atorvastatin Calcium 20 MG Tablet PO (22:15)
[2023-07-29] VITALS (50 sets, daily range): BP systolic 65–127; BP diastolic 35–110; PULSE 86–105; RESP 21–29; TEMP 36.3–37.5; O2SAT 90–100; BMI 26.4
--- NOTE | 2023-07-29 03:30 | NURSING ---
Pt c/o leaking catheter. Investigated, F/C flushed to meet resistance and no return, pt pushed on abd and urine observed leaking from around catheter. F/C removed after deflating balloon; catheter tip occluded by sediment. Pt able to void 150ml in to urinal immediately after removal, urine tea-colored w/hematuria. Pt leonid all well.
[2023-07-29 04:48] LABS: Absolute Lymphocyte Count 0.42 X10^3/uL (0.83-4.51); Basophil# 0.03 X10^3/uL; Basophil% 0.2 % (0-1); Eosinophil# 0.01 X10^3/uL; Eosinophils% 0.1 % (0-5); Hematocrit 29.3 % (40-54); Hemoglobin 9.4 g/dL (13.0-16.5); Lymphocyte # 0.42 X10^3/ul (0.83-4.51); Lymphocyte % 2.3 % (19-41); Mean Corp Hgb Conc 32.1 g/dL (32-36); Mean Corpuscular Hgb 27.2 pg (27.0-32.0); Mean Corpuscular Volume 84.9 fL (80-94); Mean Platelet Vol. 10.8 fl (6.2-12.0); Monocyte# 0.94 X10^3/uL; Monocyte% 5.1 % (0-10); NRBC Flagged by Analyzer 0.2 % (0-5); Neutrophil # 17.01 X10^3/uL (2.7-7.7); Neutrophil % 91.6 % (47-70); POSITIVE DIFFERENTIAL YES; Platelet Count 154 K/mm3 (150-450); RBC Distribution Width CV 15.1 % (11.6-14.6); RBC Distribution Width SD 46.1 fl (35.1-43.9); Red Blood Count 3.45 M/mm3 (4.6-6.2); White Blood Count 18.5 K/mm3 (4.4-11.0)
[2023-07-29 05:08] LABS: Partial Thromboplast Time 69.8 Seconds (24.1-36.2)
[2023-07-29 05:10] LABS: ALB/GLOB Ratio 0.6 RATIO (0.9-2.4); AST(SGOT) 51 U/L (15-37); Alanine Aminotransfer ALT/SGPT 101 U/L (16-61); Albumin, Serum 2.1 g/dL (3.2-5.0); Alkaline Phosphatase 242 U/L (45-117); Anion Gap 10 (5-15); BUN 84 mg/dL (7-18); BUN/Creat Ratio 33.1 RATIO (10-20); Chloride 102 mmol/L (98-107); Creatinine, Serum 2.54 mg/dL (0.70-1.30); EST Glomerular Filtration Rate 26 mL/min (>60); Est Glom Filt Rate - Afr Amer 32 mL/min (>60); Estimated Creatinine Clearance 24.35 ml/min; Globulin 3.7 g/dL (2.2-4.2); Glucose 118 mg/dL (74-106); Potassium 3.6 mmol/L (3.5-5.1); Protein, Total 5.8 g/dL (6.4-8.2); Sodium Level 136 mmol/L (136-145)
[2023-07-29 05:14] LABS: Differential Indicated SCAN CRITERIA MET
[2023-07-29 05:15] LABS: Differential Comment SCANNED; Target Cells 1+
[2023-07-29] MEDS: 0.9% Saline Lock 10 ML Syringe IV (06:24)
[2023-07-29] MEDS: Piperacil/Tazobactam 3.375 GM in 0.9% Normal Saline (50mL MB+) 50 ML IV ×3 (06:24→22:27)
--- NOTE | 2023-07-29 07:18 | PN.CC_ITS ---
Assessment & Plan Assessment/Plan (1) Septic shock: (2) Acute kidney injury superimposed on CKD: (3) Pneumonia of both lower lobes: QUALIFIERS: Pneumonia type: due to unspecified organism Qualified Code(s): J18.9 - Pneumonia, unspecified organism PLAN: Plan RECOMMENDATIONS: 1. Continue pressors to maintain a MAP greater than 65 2. Agree with broadening antibiotics to Vanco and Zosyn pending cultures 3. Wean supplemental oxygen as tolerated 4. Add midodrine 5. Stabilize hemodynamics, but may need DAMIÁN to evaluate aortic valve 6. Continue heparin drip for possible workup of cardiac abnormalities 7. Potentially treat for 10 days even if culture negative given antibiotics before cultures IMPRESSIONS: 1. Septic shock secondary to right lower lobe pneumonia secondary to influenza Unclear if patient has a secondary infection such as Staph aureus associated with influenza. Respiratory status is doing well, but patient does not have any history of lung pathology or smoking. Will continue with broad- spectrum antibiotics for now pending cultures. Unfortunately, patient did receive antibiotics prior to cultures, so may need 10 days of treatment despite negative cultures. Patient is on pressors at this time, so diuresis will have to be held. Patient did have some mild increase in leukocytosis following appropriate antibiotics 2. Acute hypoxic respiratory insufficiency Patient does not have a history of needs of supplemental oxygen previously. Patient does have a right lower lobe infiltrate noted on chest x- ray. Will likely need a follow-up x-ray to be sure this resolves. No indication for BiPAP or ABG at this time from my perspective. Will continue with supportive care. Unclear if patient may have an element of central sleep apnea overnight given cardiac strain. 3. Acute on chronic kidney disease Nephrology consulted. Stable. True baseline creatinine unclear at this time, but appears to be at least stage IIIb. Clinical suspicion for prerenal etiology secondary to problem #1 and possible congestive heart failure. Patient recently did receive diuretics. It does appear the patient is slightly delayed in presentation. Patient is making urine at this time and function appears to be slightly improved over short hospital course. No indication for renal replacement therapy at this time, but it is possible moving forward. Patient would likely be a very poor candidate for dialysis given cardiac function 4. Cardiogenic shock secondary to acute on chronic systolic congestive heart failure with MR and Cardiology consulted. Patient with significant lower extremity edema, but known DVTs. Echocardiogram shows significant decrease in EF with aortic stenosis and MR. Patient will be significantly volume dependent. Will hold on any diuresis for now given problem #1 and need for pressors. Patient is on a heparin drip, but clinical suspicion is elevated troponin is secondary to supply demand mismatch. Hold on transition to 10 a inhibitor as patient may require a DAMIÁN in the future 5. Thrombocytopenia/advanced age/poor historian/hyperlipidemia/history of testicular cancer/hypertension Complicates care, management, recovery and prognosis. Clinical suspicion is for thrombocytopenia secondary to problem #1. Patient is on heparin at this time. Will hold antihypertensives given problem #1 also. Okay to continue with statin from my perspective. TIME: 33 minutes critical care time spent addressing patient's septic shock, hypoxia, CHF, acute kidney injury, review of all data and collaboration with care team Subjective Subjective Patient did well overnight. Patient's Levophed is down to 2. Patient's lower extremity swelling has gotten slightly worse, but patient overall feels subjectively improved. Patient did have to have his Morales removed secondary to sediment clogging it. Patient has been able to use the urinal thus far without difficulty. Patient is not reporting any significant pain. Objective Data Objective Data Vital Signs: Vital Signs Temp Pulse Resp BP Pulse Ox O2 Del Method O2 Flow Rate 37.5 C H 92 28 H 111/57 L 94 Nasal Cannula 2 07/29/23 04:00 07/29/23 06:15 07/29/23 06:00 07/29/23 06:15 07/29/23 06:00 07/29/23 06:00 07/29/23 06:00 Oxygen Flow Rate (L/min) 2 Oxygen Delivery Method Nasal Cannula Weight: 83.915 kg Body Mass Index (BMI) 26.4 Intake & Output: Intake and Output for Last 24 Hours 07/27/23 07/28/23 07/29/23 23:59 23:59 23:59 Intake Total 3909.88 / 3917.38 1784.99 / 1892.49 338.41 / 338.41 Output Total 1010 / 1010 1150 / 1350 450 / 450 Balance 2899.88 / 2907.38 634.99 / 542.49 -111.59 / -111.59 Lab / Micro Data Attestation: I reviewed the patient's lab results. 07/29/23 04:35 07/29/23 04:35 Labs: Laboratory Results - last 24 hr 07/28/23 12:05: APTT 79.6 H 07/28/23 18:00: APTT 60.7 H 07/29/23 04:35: WBC 18.5 H, RBC 3.45 L, Hgb 9.4 L, Hct 29.3 L, MCV 84.9, MCH 27.2, MCHC 32.1, RDW Std Deviation 46.1 H, RDW Coeff of Yue 15.1 H, Plt Count 154, MPV 10.8, Immature Gran % (Auto) 0.700, Neut % (Auto) 91.6 H, Lymph % (Auto) 2.3 L, [place] % (Auto) 5.1, Eos % (Auto) 0.1, Baso % (Auto) 0.2, Absolute Neuts (auto) 17.0 H, Absolute Lymphs (auto) 0.42 L, Nucleated RBC % 0.2, Differential Comment SCANNED, Target Cells 1+, APTT 69.8 H, Sodium 136, Potassium 3.6, Chloride 102, Carbon Dioxide 24.0, Anion Gap 10, BUN 84 H, Creatinine 2.54 H, Estim Creat Clear Calc 24.35, Est GFR (MDRD) Af Amer 32 L, Est GFR (MDRD) Non-Af 26 L, BUN/Creatinine Ratio 33.1 H, Glucose 118 H, Calcium 8.0 L, Total Bilirubin 1.30 H, AST 51 H, ALT 101 H, Alkaline Phosphatase 242 H, Total Protein 5.8 L, Albumin 2.1 L, Globulin 3.7, Albumin/Globulin Ratio 0.6 L Micro: Microbiology 07/26/23 23:45 Nasal Secretion Nasal Screen MRSA/MSSA - Final 07/27/23 07:55 Urine Catheter - Morales Urine Culture - Preliminary Culture exhibits no growth. 07/26/23 23:30 Urine, Random Legionella Antigen - Final 07/26/23 23:30 Urine, Random Streptococcus pneumoniae Antigen (M - Final 07/26/23 21:10 Mucosa - Nasopharyngeal Influenza Types A,B Direct FA (DANIELA) - Final Influenzae A 07/26/23 21:10 Nasal Secretion SARS-CoV-2 Antigen (Rapid) - Final Radiography Diagnostic Testing: Radiology Impression Echocardiogram 07/26/23 23:30 Interpretation Summary Mildly dilated left ventricle. Mild concentric left ventricular hypertrophy. Severe global left ventricular systolic dysfunction. The left ventricular ejection fraction is 15 %. Stage 2 diastolic dysfunction. Moderate to severe mitral valve regurgitation Mild tricuspid valve insufficiency. Right ventricular systolic pressure estimated to be 52 mmHg. Severe aortic stenosis. Valve area estimated at 0.6 cm??. Mild (1+) aortic valve insufficiency. The study was technically difficult. Ordering Physician: Osmar Best Referring Physician: Marisel Che Performed By: Kevin Abarca RCS Renal Ultrasound 07/28/23 00:00 IMPRESSION: Prominence of the right renal pelvis. There is no hydronephrosis. There is a Morales catheter within bladder. Electronically Signed: Jacques Marshall MD at 17:03 EST , Rhythm Strip Rhythm Strip: Sinus Rhythm Rate: 92 Physical Exam Const alert, no apparent distress and average body habitus Constitutional Narrative: Readily interacts, but very poor historian. General Appearance: cooperative HEENT normocephalic and head/scalp atraumatic Eyes EOMs intact bilaterally and conjunctivae normal Eyes Narrative: Some cloudiness noted of the left eye Neck no lymphadenopathy, supple and no JVD Neck Narrative: Patient has bruising over the lateral sides of his neck from previous EJ attempts. There is no signs of active bleeding or infection at this time. Chest Chest Narrative: Right subclavian noted. Some bright red blood noted under dressing Resp Resp Narrative: No conversational dyspnea noted Effort and Inspection: Negative for tachypneic Auscultation: rhonchi right lower; Negative for rales or wheezes Cardio regular rate and regular rhythm Cardio Narrative: Mild grade 2 out of 6 systolic ejection murmur at the lower sternal border. Heart Sounds: murmur systolic II/ low-pitched mid right sternal border GI normal to inspection, nondistended, normoactive bowel sounds, soft to palpation, non-tender and non-distended Extremity General Extremity: edema bilateral (4+ was slight progression into the thighs) lower extremity; Negative for clubbing Skin no rashes or lesions noted General Skin Exam: Negative for mottling Neuro CN's II-XII intact bilaterally, moves all extremities and no focal motor deficits Speech: speech normal Psych cooperative and affect normal Charges/Coding Procedures Hospitalists Procedures: 44874 Critial Care 1st Hr
[2023-07-29] MEDS: Vancomycin HCl 750 MG in 0.9% Normal Saline (250mL Bag) 250 ML 250 MG IV (07:54)
[2023-07-29] MEDS: Zinc Sulfate 50 mg zinc (220 mg) ORAL capsule PO (08:01)
[2023-07-29] MEDS: Aspirin 81 MG TAB.CHEW PO (08:01)
[2023-07-29] MEDS: Cholecalciferol (Vit D3) 125 MCG CAPSULE (5,000 UNITS) PO (08:02)
[2023-07-29] MEDS: Clopidogrel Bisulfate 75 MG Tablet PO (08:02)
[2023-07-29] MEDS: Ascorbic Acid 500 MG Tablet 1000 MG PO ×2 (08:02→17:44)
[2023-07-29] MEDS: Midodrine HCl 5 MG Tablet 10 MG PO ×3 (08:42→17:43)
--- NOTE | 2023-07-29 08:49 | PCM.PN.REN ---
Subjective Subjective Following for NATALEE on CKD. The patient feels better overall. He is not short of breath. He is eating well. There is no nausea or vomiting. Objective Data Objective Data Vital Signs: Vital Signs Temp Pulse Resp BP Pulse Ox O2 Del Method O2 Flow Rate 97.4 F L 97 24 H 112/85 H 94 Nasal Cannula 2 07/29/23 08:00 07/29/23 08:00 07/29/23 08:00 07/29/23 08:00 07/29/23 08:10 07/29/23 08:00 07/29/23 08:10 Oxygen Flow Rate (L/min) 2 Oxygen Delivery Method Nasal Cannula Weight: 83.915 kg Body Mass Index (BMI) 26.4 Intake & Output: Intake and Output for Last 24 Hours 07/27/23 07/28/23 07/29/23 23:59 23:59 23:59 Intake Total 3909.88 / 3917.38 1784.99 / 1892.49 345.69 / 345.69 Output Total 1010 / 1010 1150 / 1350 450 / 450 Balance 2899.88 / 2907.38 634.99 / 542.49 -104.31 / -104.31 Lab / Micro Data 07/30/23 04:20 07/30/23 04:20 Labs: Laboratory Results - last 24 hr 07/28/23 12:05: APTT 79.6 H 07/28/23 18:00: APTT 60.7 H 07/29/23 04:35: WBC 18.5 H, RBC 3.45 L, Hgb 9.4 L, Hct 29.3 L, MCV 84.9, MCH 27.2, MCHC 32.1, RDW Std Deviation 46.1 H, RDW Coeff of Yue 15.1 H, Plt Count 154, MPV 10.8, Immature Gran % (Auto) 0.700, Neut % (Auto) 91.6 H, Lymph % (Auto) 2.3 L, [place] % (Auto) 5.1, Eos % (Auto) 0.1, Baso % (Auto) 0.2, Absolute Neuts (auto) 17.0 H, Absolute Lymphs (auto) 0.42 L, Nucleated RBC % 0.2, Differential Comment SCANNED, Target Cells 1+, APTT 69.8 H, Sodium 136, Potassium 3.6, Chloride 102, Carbon Dioxide 24.0, Anion Gap 10, BUN 84 H, Creatinine 2.54 H, Estim Creat Clear Calc 24.35, Est GFR (MDRD) Af Amer 32 L, Est GFR (MDRD) Non-Af 26 L, BUN/Creatinine Ratio 33.1 H, Glucose 118 H, Calcium 8.0 L, Total Bilirubin 1.30 H, AST 51 H, ALT 101 H, Alkaline Phosphatase 242 H, Total Protein 5.8 L, Albumin 2.1 L, Globulin 3.7, Albumin/Globulin Ratio 0.6 L Micro: Microbiology 07/27/23 07:55 Urine Catheter - Morales Urine Culture - Final Culture exhibits no growth. 07/26/23 23:45 Nasal Secretion Nasal Screen MRSA/MSSA - Final 07/26/23 23:30 Urine, Random Legionella Antigen - Final 07/26/23 23:30 Urine, Random Streptococcus pneumoniae Antigen (M - Final 07/26/23 21:10 Mucosa - Nasopharyngeal Influenza Types A,B Direct FA (DANIELA) - Final Influenzae A 07/26/23 21:10 Nasal Secretion SARS-CoV-2 Antigen (Rapid) - Final Radiography Diagnostic Testing: Radiology Impression Echocardiogram 07/26/23 23:30 Interpretation Summary Mildly dilated left ventricle. Mild concentric left ventricular hypertrophy. Severe global left ventricular systolic dysfunction. The left ventricular ejection fraction is 15 %. Stage 2 diastolic dysfunction. Moderate to severe mitral valve regurgitation Mild tricuspid valve insufficiency. Right ventricular systolic pressure estimated to be 52 mmHg. Severe aortic stenosis. Valve area estimated at 0.6 cm??. Mild (1+) aortic valve insufficiency. The study was technically difficult. Ordering Physician: Osmar Best Referring Physician: Marisel Che Performed By: Kevin Abarca RCS Renal Ultrasound 07/28/23 00:00 IMPRESSION: Prominence of the right renal pelvis. There is no hydronephrosis. There is a Morales catheter within bladder. Electronically Signed: Jacques Marshall MD at 17:03 EST , Rhythm Strip Rhythm Strip: Sinus Rhythm Rate: 92 Physical Exam Narrative General: Alert and oriented x3, NAD. HEENT: Normocephalic, atraumatic. Mucous membrane moist without erythema. PERRLA, EOMI. Hearing is intact. Neck: Supple, no JVD. Trachea is midline. No thyromegaly or lymphadenopathy. Cardiovascular: Normal S1, S2. There is a 3/6 systolic murmur. No rubs or gallops. Respiratory: Breath sounds decreased at bases posteriorly. Abdomen: Normal bowel sounds, soft, nontender, no guarding or rebound, no organomegaly. Extremities: The patient has 1+ lower extremity edema. No clubbing or cyanosis. Assessment & Plan Assessment/Plan (1) NATALEE (acute kidney injury): (2) Chronic kidney disease, stage 3b: (3) Hypertension: (4) Septic shock: PLAN: Plan Impression/Plan: 78-year-old man with past history of chronic kidney disease stage G3b/A1, hypertension, HFrEF, BPH, osteoarthritis, and remote history of testicular cancer. The patient presents to the hospital with 4 to 6 weeks history of progressive weakness, malaise, dyspnea and cough. The patient is also experiencing increasing lower extremity edema over the past 2 to 4 weeks. He was admitted to hospital on 07/26/2023 with septic shock attributed to right lower lobe pneumonia due to influenza infection and possibly superimposed bacterial pneumonia. Nephrology is following the patient for acute kidney injury on chronic kidney disease. Acute kidney injury on chronic kidney disease stage G3b/A1. The patient has CKD from nephrosclerosis. Baseline serum creatinine has been around 2.00 mg/dL prior to this admission. Acute kidney injury with serum creatinine of 3.22 mg/dL on presentation is secondary to ischemic ATN related to septic shock. The patient had also been on losartan prior to admission. There was no evidence of urinary tract obstruction on renal ultrasound on 07/28/2023. I have low suspicion for other causes of NATALEE at this point. Overall, renal function has been slowly improving. Serum creatinine has decreased from 3.04 mg/dL on 07/27/2023 down to 2.54 mg/dL today on 07/29/2023. The patient is not oliguric Agree with current treatment. Treatment of ATN is largely supportive. Continue to keep MAP above 65 mmHg. Continue to hold ARB. I am okay with diuresis if needed. Since the patient is not hyperkalemic, severely acidotic or volume overloaded, there is no urgent need for kidney replacement therapy. Recheck renal function, volume status, electrolytes, and acid-base status again tomorrow. History of hypertension. Holding losartan because of prior hypotension and NATALEE. Although he is on less vasopressor, BP still soft. Therefore, I would continue to hold losartan today. Will continue to monitor BP. Septic shock. The patient is being treated for septic shock attributed to right lower lobe pneumonia. He has been diagnosed with influenza infection. He is getting oseltamavir. He is also receiving antibiotic for possible superimposed bacterial pneumonia. The patient is on IV vasopressor otherwise low-dose. Overall coordination of care as per hospital medicine and critical care services. Nephrology plan discussed with Dr. Deisi Vazquez and Dr. Bocanegra.
--- NOTE | 2023-07-29 09:41 | PN.HOSP_ITS ---
Reason for Visit Reason for Visit: Shortness of breath/cough/malaise Subjective Subjective No issues overnight. Patient is now down to 2 mcg of Levophed per minute. Overall appears to be feeling better. Objective Data Objective Data Vital Signs: Vital Signs Temp Pulse Resp BP Pulse Ox O2 Del Method O2 Flow Rate 97.4 F L 101 H 22 H 88/72 L 95 Nasal Cannula 2 07/29/23 08:00 07/29/23 09:00 07/29/23 09:00 07/29/23 09:30 07/29/23 09:00 07/29/23 09:00 07/29/23 09:00 Oxygen Flow Rate (L/min) 2 Oxygen Delivery Method Nasal Cannula Weight: 83.915 kg Body Mass Index (BMI) 26.4 Intake & Output: Intake and Output for Last 24 Hours 07/27/23 07/28/23 07/29/23 23:59 23:59 23:59 Intake Total 3909.88 / 3917.38 1784.99 / 1892.49 615.29 / 615.29 Output Total 1010 / 1010 1150 / 1350 450 / 450 Balance 2899.88 / 2907.38 634.99 / 542.49 165.29 / 165.29 Lab / Micro Data 07/29/23 04:35 07/29/23 04:35 Labs: Laboratory Results - last 24 hr 07/28/23 12:05: APTT 79.6 H 07/28/23 18:00: APTT 60.7 H 07/29/23 04:35: WBC 18.5 H, RBC 3.45 L, Hgb 9.4 L, Hct 29.3 L, MCV 84.9, MCH 27.2, MCHC 32.1, RDW Std Deviation 46.1 H, RDW Coeff of Yue 15.1 H, Plt Count 154, MPV 10.8, Immature Gran % (Auto) 0.700, Neut % (Auto) 91.6 H, Lymph % (Auto) 2.3 L, [place] % (Auto) 5.1, Eos % (Auto) 0.1, Baso % (Auto) 0.2, Absolute Neuts (auto) 17.0 H, Absolute Lymphs (auto) 0.42 L, Nucleated RBC % 0.2, Differential Comment SCANNED, Target Cells 1+, APTT 69.8 H, Sodium 136, Potassium 3.6, Chloride 102, Carbon Dioxide 24.0, Anion Gap 10, BUN 84 H, Creatinine 2.54 H, Estim Creat Clear Calc 24.35, Est GFR (MDRD) Af Amer 32 L, Est GFR (MDRD) Non-Af 26 L, BUN/Creatinine Ratio 33.1 H, Glucose 118 H, Calcium 8.0 L, Total Bilirubin 1.30 H, AST 51 H, ALT 101 H, Alkaline Phosphatase 242 H, Total Protein 5.8 L, Albumin 2.1 L, Globulin 3.7, Albumin/Globulin Ratio 0.6 L Micro: Microbiology 07/27/23 07:55 Urine Catheter - Morales Urine Culture - Final Culture exhibits no growth. 07/26/23 23:45 Nasal Secretion Nasal Screen MRSA/MSSA - Final 07/26/23 23:30 Urine, Random Legionella Antigen - Final 07/26/23 23:30 Urine, Random Streptococcus pneumoniae Antigen (M - Final 07/26/23 21:10 Mucosa - Nasopharyngeal Influenza Types A,B Direct FA (DANIELA) - Final Influenzae A 07/26/23 21:10 Nasal Secretion SARS-CoV-2 Antigen (Rapid) - Final Radiography Diagnostic Testing: Radiology Impression Echocardiogram 07/26/23 23:30 Interpretation Summary Mildly dilated left ventricle. Mild concentric left ventricular hypertrophy. Severe global left ventricular systolic dysfunction. The left ventricular ejection fraction is 15 %. Stage 2 diastolic dysfunction. Moderate to severe mitral valve regurgitation Mild tricuspid valve insufficiency. Right ventricular systolic pressure estimated to be 52 mmHg. Severe aortic stenosis. Valve area estimated at 0.6 cm??. Mild (1+) aortic valve insufficiency. The study was technically difficult. Ordering Physician: Osmar Best Referring Physician: Marisel Che Performed By: Kevin Abarca RCS Renal Ultrasound 07/28/23 00:00 IMPRESSION: Prominence of the right renal pelvis. There is no hydronephrosis. There is a Morales catheter within bladder. Electronically Signed: Jacques Marshall MD at 17:03 EST , Rhythm Strip Rhythm Strip: Sinus Rhythm Rate: 92 Physical Exam Const alert, oriented x3, no apparent distress and average body habitus Constitutional Narrative: Elderly, white male, sitting up in bed watching television, nursing at bedside, patient appears older than stated age, currently appears comfortable and nontoxic HEENT normocephalic, head/scalp atraumatic, hearing grossly normal bilaterally and moist oral mucous membranes HEENT Narrative: Mallampati is 2, no thrush Resp normal respiratory effort, no retractions, no use of accessory muscles and No clear to auscultation bilaterally Resp Narrative: Patient with right lower lobe expiratory and inspiratory wheeze that cleared with cough Auscultation: wheezes; Negative for crackles or rhonchi Cardio regular rate, regular rhythm, S1 normal heart sound, S2 normal heart sound, no rub, no gallops and no clicks; Negative for no murmurs Cardio Narrative: 2 out of 6 systolic murmur loudest at left lower sternal border GI normal to inspection, nondistended, normoactive bowel sounds, soft to palpation and non-tender Extremity Extremity Narrative: Mottling has resolved, 3+ pitting edema bilateral lower extremities, no cyanosis or clubbing Neuro oriented x3, moves all extremities and no focal motor deficits Neuro Narrative: Generalized weakness noted-proximal greater than distal Speech: speech normal Psych affect normal Psych Narrative: Eye contact is good, patient is pleasant Assessment & Plan Assessment/Plan (1) Septic shock: (2) D-dimer, elevated: (3) Elevated troponin: (4) Acute kidney injury superimposed on CKD: (5) Hypoxia: (6) Thrombocytopenia: (7) Influenza A H1N1 infection: (8) Leukocytosis: (9) Transaminitis: (10) Cardiomyopathy: (11) DVT, bilateral lower limbs: (12) Severe aortic stenosis: (13) Severe mitral valve regurgitation: (14) Diastolic dysfunction: PLAN: Plan Septic shock secondary to influenza A, +/- superimposed bacterial pneumonia -Urine culture unremarkable -Blood cultures remain pending -Continue broad-spectrum antibiotics with vancomycin and Zosyn -Midodrine added to facilitate discontinuation of Levophed -Continue Tamiflu day 4/5 -Currently on pressors--> wean as able -Levophed has been weaned to 2 mcg/min -Critical care medicine --> discussed case with visual manager Influenza A -Tamiflu as above -Supportive care Acute hypoxia -Patient shows no signs of respiratory failure remains on 2 L nasal cannula -Continue supplemental oxygen as needed and wean as able -Echo was performed and showed depressed EF - we will likely be able to discontinue oxygen once we can start some diuresis however hemodynamics prohibit this at this time Bilateral lower extremity DVTs -Continue heparin drip -Will need long-term oral anticoagulation likely with Coumadin but could consider Eliquis depending on renal function Cardiomyopathy -Echocardiogram shows an EF of 15% with stage II diastolic dysfunction, severe global dysfunction is noted along with moderate to severe mitral valve regurgitation indicating his EF might actually even be lower than 15%, right ventricular systolic pressure is 52 mmHg and he has severe aortic stenosis with a valve area of 0.6 cm -Cardiology is following -Lasix trial yesterday and patient appeared to tolerate well will utilize as needed until hemodynamics are improved to use on a continuous basis -Await further cardiology recommendation Severe aortic stenosis/moderate to severe mitral valve regurgitation -Will be preload dependent so once able to diurese we will have to be sure not to diurese too aggressively -Cardiology is following--> May need to be considered for TAVR in the future -Continue to monitor volume status and diurese as able when hemodynamics permit Lactic acidosis -Resolved Thrombocytopenia-acute -Resolved -Platelet count is up to 154,000 today Troponin elevation -suspect stress induced ischemia and related to his cardiomyopathy -Will discontinue Plavix but continue aspirin in light of requiring full anticoagulation to avoid triple therapy -No recent stent placement -Echocardiogram as noted above -Cardiology is following Leukocytosis -Suspect related to the above -Continue to monitor -Continue broad-spectrum antibiotics and await cultures Mild transaminitis -May be related to acute infection as well as his cardiomyopathy and him being off [place] curve -Trending down -Elevations are mild NATALEE on CKD stage IV -Baseline serum creatinine appears to be between 1.7 and 2.0 -Serum creatinine on presentation was greater than 3--> trending down to 2.54 today -Continue to monitor closely -Nephrology is following -No current needs for renal replacement therapy -Avoid nephrotoxins as able -Renally dose medications -Renal ultrasound shows no specific abnormalities related to obstruction or hydronephrosis History of hypertension -Patient has been hypotensive and on pressors -Continue to monitor -Will need to obtain home medication list History of glaucoma -Home medication list is pending and will initiate any medications after obtained Hyperlipidemia -Continue home statin History of testicular cancer -Remote 1978 -Status post chemo and 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
--- NOTE | 2023-07-29 11:22 | CASEMGMT ---
Social Work SW met w/pt and daughter Marisa in room in regard to discharge plan. Pt states it may be too soon to plan for this, but we did discuss the possibility of pt going to a group home facility for some rehab. Pt is undecided but seems open to it. SW spoke w/daughter about if pt were to need to go somewhere for rehab, where would be a good area--as she is in [place], pt is in [place] and pt's son is in [place]. Daughter states [place] would be central for everyone. SW provided to daughter two usp lists via [employer]--one for [facility] and one for the [facility], both with facilities that are in network w/pt's insurance and complete w/quality and resource use data. Daughter somewhat familiar with the process of someone going to a usp for rehab as her father in law was just in rehab recently. SW explained that when we are further along in the process will send referrals to their 3 facilities of choice and then go for insurance authorization. Daughter states understanding. Daughter then asked SW to speak w/her in the hallway. Daughter in the hallway let SW know that the hand polisher painted a bit of a grim picture, and pt had wondered out loud if he should just go home. Pt has been independent his whole life, has not always followed up on health concerns. We spoke a bit about hospice, and if this becomes appropriate can make a referral. Daughter still thinks pt will recover somewhat from this but is also aware of pt not taking care of his health. Support offered to daughter. SW will continue to follow for discharge and supportive needs. JF Anaya
[2023-07-29] MEDS: Norepinephrine 8 MG in 0.9% Normal Saline (250mL Bag) 242 ML 3.8 MG CONT INF (11:52)
[2023-07-29] MEDS: HEPARIN/D5w 25,000 UNITS 25,000 UNITS/250 ML IV.SOLN. 7 UNITS CONT INF (13:55)
[2023-07-29] MEDS: Ensure Plus High Protein 120 ML LIQUID PO ×2 (17:44→22:31)
[2023-07-29] MEDS: Tamsulosin HCl 0.4 MG Capsule PO (17:44)
[2023-07-29] MEDS: Atorvastatin Calcium 20 MG Tablet PO (22:26)
[2023-07-29] MEDS: Oseltamivir Phosphate 30 MG Capsule PO (22:27)
[2023-07-30] VITALS (45 sets, daily range): BP systolic 73–103; BP diastolic 47–85; PULSE 85–112; RESP 20–33; TEMP 36.3–36.8; O2SAT 92–97; BMI 26.9
[2023-07-30 04:29] LABS: Absolute Lymphocyte Count 0.63 X10^3/uL (0.83-4.51); Absolute Neutrophil Count 14.5 X10^3/uL (2.0-7.7); Basophil# 0.02 X10^3/uL; Basophil% 0.1 % (0-1); Eosinophil# 0.06 X10^3/uL; Eosinophils% 0.4 % (0-5); Hematocrit 29.6 % (40-54); Hemoglobin 9.3 g/dL (13.0-16.5); Lymphocyte # 0.63 X10^3/ul (0.83-4.51); Lymphocyte % 3.9 % (19-41); Mean Corp Hgb Conc 31.4 g/dL (32-36); Mean Corpuscular Hgb 27.1 pg (27.0-32.0); Mean Corpuscular Volume 86.3 fL (80-94); Mean Platelet Vol. 10.8 fl (6.2-12.0); Monocyte# 0.88 X10^3/uL; Monocyte% 5.4 % (0-10); NRBC Flagged by Analyzer 0.2 % (0-5); Neutrophil # 14.46 X10^3/uL (2.7-7.7); Neutrophil % 89.4 % (47-70); Platelet Count 162 K/mm3 (150-450); RBC Distribution Width CV 15.3 % (11.6-14.6); RBC Distribution Width SD 47.3 fl (35.1-43.9); Red Blood Count 3.43 M/mm3 (4.6-6.2); White Blood Count 16.2 K/mm3 (4.4-11.0)
[2023-07-30] MEDS: Vancomycin Trough/Random Due 1 LAB MC (05:18)
[2023-07-30] MEDS: Piperacil/Tazobactam 3.375 GM in 0.9% Normal Saline (50mL MB+) 50 ML IV ×3 (05:19→22:43)
[2023-07-30] MEDS: 0.9% Saline Lock 10 ML Syringe IV (05:34)
[2023-07-30 05:56] LABS: ALB/GLOB Ratio 0.5 RATIO (0.9-2.4); AST(SGOT) 46 U/L (15-37); Alanine Aminotransfer ALT/SGPT 86 U/L (16-61); Alkaline Phosphatase 229 U/L (45-117); Anion Gap 10 (5-15); BUN 79 mg/dL (7-18); BUN/Creat Ratio 34.2 RATIO (10-20); Chloride 103 mmol/L (98-107); Creatinine, Serum 2.31 mg/dL (0.70-1.30); EST Glomerular Filtration Rate 29 mL/min (>60); Est Glom Filt Rate - Afr Amer 35 mL/min (>60); Estimated Creatinine Clearance 26.77 ml/min; Globulin 3.8 g/dL (2.2-4.2); Glucose 121 mg/dL (74-106); Potassium 3.5 mmol/L (3.5-5.1); Protein, Total 5.8 g/dL (6.4-8.2); Sodium Level 138 mmol/L (136-145)
--- NOTE | 2023-07-30 06:08 | PCM.RX.CS ---
Consult Antibiotic Management Pharmacy has been consulted to manage selected antiobiotic: Vancomycin Type of Intervention Type of Consult: Follow-up Suspected Infection Suspected Infection: Pneumonia Labs Labs: Sodium 138 mmol/L (136-145) 07/30/23 04:20 Potassium 3.5 mmol/L (3.5-5.1) 07/30/23 04:20 Chloride 103 mmol/L (98-107) 07/30/23 04:20 Carbon Dioxide 25.0 mmol/L (21.0-32.0) 07/30/23 04:20 Anion Gap 10 (5-15) 07/30/23 04:20 BUN 79 mg/dL (7-18) H 07/30/23 04:20 Creatinine 2.31 mg/dL (0.70-1.30) H 07/30/23 04:20 Est GFR (MDRD) Af Amer 35 mL/min (>60) L 07/30/23 04:20 Est GFR (MDRD) Non-Af 29 mL/min (>60) L 07/30/23 04:20 BUN/Creatinine Ratio 34.2 RATIO (10-20) H 07/30/23 04:20 Glucose 121 mg/dL (74-106) H 07/30/23 04:20 Vancomycin Trough 20.0 ug/mL (5.0-15.0) H 07/30/23 04:20 Random Vancomycin 18.5 ug/mL (0.0-15.0) H 07/28/23 05:20 Microbiology Microbiology: Microbiology 07/26/23 21:08 Blood Culture (Wb) - Central Line Blood Culture - Preliminary No growth in 48 hours. 07/26/23 Unknown Blood Culture (Wb) - Central Line Blood Culture - Preliminary No growth in 48 hours. 07/27/23 07:55 Urine Catheter - Morales Urine Culture - Final Culture exhibits no growth. 07/26/23 23:45 Nasal Secretion Nasal Screen MRSA/MSSA - Final 07/26/23 23:30 Urine, Random Legionella Antigen - Final 07/26/23 23:30 Urine, Random Streptococcus pneumoniae Antigen (M - Final 07/26/23 21:10 Mucosa - Nasopharyngeal Influenza Types A,B Direct FA (DANIELA) - Final Influenzae A 07/26/23 21:10 Nasal Secretion SARS-CoV-2 Antigen (Rapid) - Final Dosing Weight Weight used for dosin.9 kg Estimated Creatinine Clearance Estimated Creatinine Clearance: 26.8 Goal Trough Goal Trough: 15-20 mcg/mL Pharmacy Plan for Drug Dosing Pharmacy Plan for Drug Dosing: Vancomycin trough level of 20.0 was at the top of the target range of 15-20. This was drawn 20.5hrs post-dose, and SCr improved from 2.54 to 2.31, so we will keep dosing at 750mg q24hrs. Another trough will be drawn in two days. Pharmacy Service will continue to monitor and adjust dosing as required. Follow-Up Labs Follow-Up Labs: Trough: Vancomycin Date/Time Labs Ordered Labs to be done on [date and time ordered]: 08/01/23 @0626
[2023-07-30] MEDS: Vancomycin HCl 750 MG in 0.9% Normal Saline (250mL Bag) 250 ML 250 MG IV (06:56)
[2023-07-30 07:35] LABS: Magnesium 2.7 mg/dL (1.6-2.6); Phosphorus 3.6 mg/dL (2.5-4.9)
--- NOTE | 2023-07-30 08:04 | PN.CC_ITS ---
Assessment & Plan Assessment/Plan (1) Septic shock: (2) Acute kidney injury superimposed on CKD: (3) Pneumonia of both lower lobes: QUALIFIERS: Pneumonia type: due to unspecified organism Qualified Code(s): J18.9 - Pneumonia, unspecified organism PLAN: Plan RECOMMENDATIONS: 1. Continue pressors and midodrine to maintain a MAP greater than 65 2. Agree with broadening antibiotics to Vanco and Zosyn pending cultures 3. Wean supplemental oxygen as tolerated 4. Check mixed venous blood gas. Possibly add dobutamine versus stress dose steroids 5. Stabilize hemodynamics, but may need DAMIÁN to evaluate aortic valve 6. Continue heparin drip for possible workup of cardiac abnormalities 7. Potentially treat for 10 days even if culture negative given antibiotics before cultures IMPRESSIONS: 1. Septic shock secondary to right lower lobe pneumonia secondary to influenza Unclear if patient has a secondary infection such as Staph aureus associated with influenza. Respiratory status is doing well, but patient does not have any history of lung pathology or smoking. Will continue with broad- spectrum antibiotics for now pending cultures. Unfortunately, patient did receive antibiotics prior to cultures, so may need 10 days of treatment despite negative cultures. Patient is on pressors at this time, so diuresis will have to be held. Patient did have some mild improvement in leukocytosis following appropriate antibiotics. Will check a mixed venous gas and possibly add dobutamine versus stress dose steroids. 2. Acute hypoxic respiratory insufficiency Patient does not have a history of needs of supplemental oxygen previously. Patient does have a right lower lobe infiltrate noted on chest x- ray. Will likely need a follow-up x-ray to be sure this resolves. No indication for BiPAP or ABG at this time from my perspective. Will continue with supportive care. Unclear if patient may have an element of central sleep apnea overnight given cardiac strain. 3. Acute on chronic kidney disease Nephrology consulted. Stable. True baseline creatinine unclear at this time, but appears to be at least stage IIIb. Clinical suspicion for prerenal etiology secondary to problem #1 and possible congestive heart failure. Patient recently did receive diuretics intermittently. It does appear the patient is slightly delayed in presentation. Patient is making urine at this time and function appears to be slightly improved over short hospital course. No in dication for renal replacement therapy at this time, but it is possible moving forward. Patient would likely be a very poor candidate for dialysis given cardiac function 4. Cardiogenic shock secondary to acute on chronic systolic congestive heart failure with MR and Cardiology consulted. Patient with significant lower extremity edema, but known DVTs. Echocardiogram shows significant decrease in EF with aortic stenosis and MR. Patient will be significantly volume dependent. Will hold on any diuresis for now given problem #1 and need for pressors. Patient is on a heparin drip, but clinical suspicion is elevated troponin is secondary to supply demand mismatch. Hold on transition to 10 a inhibitor as patient may require additional testing in the future. Possibly add dobutamine pending results of mixed venous 5. Thrombocytopenia/advanced age/poor historian/hyperlipidemia/history of testicular cancer/hypertension Complicates care, management, recovery and prognosis. Clinical suspicion is for thrombocytopenia secondary to problem #1. Patient is on heparin at this time. Will hold antihypertensives given problem #1 also. Okay to continue with statin from my perspective. TIME: 35 minutes critical care time spent addressing patient's septic shock, hypoxia, CHF, acute kidney injury, review of all data and collaboration with care team Subjective Subjective Patient did well overnight. Patient has had increased ectopy noted on telemetry and Levophed has slightly increased. Patient has been doing well on nasal cannula oxygen. Patient's right lower extremity edema is much improved, but left remained stable. Patient reportedly has significant shortness of breath with moving to the chair. Objective Data Objective Data Vital Signs: Vital Signs Temp Pulse Resp BP Pulse Ox O2 Del Method O2 Flow Rate 36.6 C 95 22 H 81/60 L 94 Nasal Cannula 2 07/30/23 04:00 07/30/23 07:00 07/30/23 07:00 07/30/23 07:00 07/30/23 07:00 07/30/23 07:00 07/30/23 07:00 Oxygen Flow Rate (L/min) 2 Oxygen Delivery Method Nasal Cannula Weight: 83.915 kg Body Mass Index (BMI) 26.4 Intake & Output: Intake and Output for Last 24 Hours 07/28/23 07/29/23 07/30/23 23:59 23:59 23:59 Intake Total 1784.99 / 1892.49 1455.51 / 1701.14 589.91 / 589.91 Output Total 1150 / 1350 850 / 900 200 / 200 Balance 634.99 / 542.49 605.51 / 801.14 389.91 / 389.91 Medical Nutrition Assessment Dietitian: Malnutrition Criteria Met Start: 07/29/23 11:31 Freq: Status: Active Protocol: Document 07/29/23 11:31 LO (Rec: 07/29/23 11:32 [id number]) Nutrition Malnutrition Evidence of Malnutrition Exists Yes Evidenced By Suboptimal Energy Intake ( Severe),Physical Changes ( Moderate) Intake Problem Inadequate Oral Intake Etiology related to acute illness/poor appetite Signs/Symptoms as evidenced by PO <50% x past 3 days Status Active Problem Clinical Problem Acute Disease or Injury Related Malnutrition Etiology severe related to suboptimal appetite and acute illness Signs/Symptoms as evidenced by PO intakes <50 % of estimated needs for 1 week and severe orbital fat loss and moderate clavicle muscle loss Status Active Problem Altered Nutrient-Related Laboratory Values Etiology related to CKD Signs/Symptoms as evidenced by BUN 84/Creat 2 .54 Status Active Problem Recommendation Dietitian Recommendations/Changes Continue sodium-restricted diet for now to manage medical conditions BUN/creat high, monitor need to restrict protein and fluids once PO adequacy established with meal. RD will order 120mL EPHP TID with medpass to provide supplemental energy. Lab / Micro Data Attestation: I reviewed the patient's lab results. 07/30/23 04:20 07/30/23 04:20 Labs: Laboratory Results - last 24 hr 07/30/23 04:20: WBC 16.2 H, RBC 3.43 L, Hgb 9.3 L, Hct 29.6 L, MCV 86.3, MCH 27.1, MCHC 31.4 L, RDW Std Deviation 47.3 H, RDW Coeff of Yue 15.3 H, Plt Count 162, MPV 10.8, Immature Gran % (Auto) 0.800, Neut % (Auto) 89.4 H, Lymph % (Auto) 3.9 L, [place] % (Auto) 5.4, Eos % (Auto) 0.4, Baso % (Auto) 0.1, Absolute Neuts (auto) 14.5 H, Absolute Lymphs (auto) 0.63 L, Nucleated RBC % 0.2, APTT 68.0 H, Sodium 138, Potassium 3.5, Chloride 103, Carbon Dioxide 25.0, Anion Gap 10, BUN 79 H, Creatinine 2.31 H, Estim Creat Clear Calc 26.77, Est GFR (MDRD) Af Amer 35 L, Est GFR (MDRD) Non-Af 29 L, BUN/Creatinine Ratio 34.2 H, Glucose 121 H, Calcium 8.0 L, Phosphorus 3.6, Magnesium 2.7 H, Total Bilirubin 1.00, AST 46 H, ALT 86 H, Alkaline Phosphatase 229 H, Total Protein 5.8 L, Albumin 2.0 L, Globulin 3.8, Albumin/Globulin Ratio 0.5 L, Vancomycin Trough 20.0 H Micro: Microbiology 07/26/23 21:08 Blood Culture (Wb) - Central Line Blood Culture - Preliminary No growth in 48 hours. 07/26/23 Unknown Blood Culture (Wb) - Central Line Blood Culture - Preliminary No growth in 48 hours. 07/27/23 07:55 Urine Catheter - Morales Urine Culture - Final Culture exhibits no growth. 07/26/23 23:45 Nasal Secretion Nasal Screen MRSA/MSSA - Final 07/26/23 23:30 Urine, Random Legionella Antigen - Final 07/26/23 23:30 Urine, Random Streptococcus pneumoniae Antigen (M - Final 07/26/23 21:10 Mucosa - Nasopharyngeal Influenza Types A,B Direct FA (DANIELA) - Final Influenzae A 07/26/23 21:10 Nasal Secretion SARS-CoV-2 Antigen (Rapid) - Final Rhythm Strip Rhythm Strip: Sinus Rhythm Rate: 92 Physical Exam Const alert, no apparent distress and average body habitus Constitutional Narrative: Readily interacts, but very poor historian. General Appearance: cooperative HEENT normocephalic and head/scalp atraumatic Eyes EOMs intact bilaterally and conjunctivae normal Eyes Narrative: Some cloudiness noted of the left eye Neck no lymphadenopathy, supple and no JVD Neck Narrative: Patient has improved bruising over the lateral sides of his neck from previous EJ attempts. There is no signs of active bleeding or infection at this time. General: CVC in place Chest Chest Narrative: Right subclavian noted. Some bright red blood noted under dressing Resp Resp Narrative: No conversational dyspnea noted Effort and Inspection: Negative for tachypneic Auscultation: rhonchi right lower; Negative for rales or wheezes Cardio regular rate and regular rhythm Cardio Narrative: Mild grade 2 out of 6 systolic ejection murmur at the lower sternal border. Heart Sounds: murmur systolic II/ low-pitched mid right sternal border GI normal to inspection, nondistended, normoactive bowel sounds, soft to palpation, non-tender and non-distended Extremity General Extremity: edema bilateral (4+ with right improvement more than left) lower extremity; Negative for clubbing Skin no rashes or lesions noted General Skin Exam: Negative for mottling Neuro CN's II-XII intact bilaterally, moves all extremities and no focal motor deficits Speech: speech normal Psych cooperative and affect normal Charges/Coding Procedures Hospitalists Procedures: 20859 Critial Care 1st Hr
[2023-07-30] MEDS: Aspirin 81 MG TAB.CHEW PO (08:09)
[2023-07-30] MEDS: Ascorbic Acid 500 MG Tablet 1000 MG PO ×2 (08:09→17:35)
[2023-07-30] MEDS: Zinc Sulfate 50 mg zinc (220 mg) ORAL capsule PO (08:09)
[2023-07-30] MEDS: Midodrine HCl 5 MG Tablet 10 MG PO ×3 (08:09→17:35)
[2023-07-30] MEDS: Cholecalciferol (Vit D3) 125 MCG CAPSULE (5,000 UNITS) PO (08:09)
[2023-07-30] MEDS: Ensure Plus High Protein 120 ML LIQUID PO ×3 (08:10→22:42)
[2023-07-30 08:11] LABS: Blood Gas Specimen Type VEN; O2 Delivery Device Cannula; SITE Central Line; VBG BASE EXCESS -1 mmol/L (-1.0-3.5); VBG Bicarbonate 24 mmol/L (22-26); VBG PO2 33 mmHg (25-40); VBG SO2 61 % (50-70); VBG TCO2 25 mmol/L (23-33); VBG pCO2 41.9 mmHg (41-51); VBG pH 7.37 (7.32-7.42)
--- NOTE | 2023-07-30 09:31 | PN.RENAL_ITS ---
Subjective Subjective Following for NATALEE on CKD. The patient feels about the same as yesterday. He denies increasing dyspnea. Appetite is okay. There is no nausea, vomiting or diarrhea. Objective Data Objective Data Vital Signs: Vital Signs Temp Pulse Resp BP Pulse Ox O2 Del Method O2 Flow Rate 97.3 F L 102 H 26 H 78/63 L 93 Nasal Cannula 2 07/30/23 08:00 07/30/23 09:00 07/30/23 09:00 07/30/23 09:00 07/30/23 09:00 07/30/23 09:00 07/30/23 09:00 Oxygen Flow Rate (L/min) 2 Oxygen Delivery Method Nasal Cannula Weight: 83.915 kg Body Mass Index (BMI) 26.4 Intake & Output: Intake and Output for Last 24 Hours 07/28/23 07/29/23 07/30/23 23:59 23:59 23:59 Intake Total 1784.99 / 1892.49 1455.51 / 1701.14 923.71 / 923.71 Output Total 1150 / 1350 850 / 900 200 / 200 Balance 634.99 / 542.49 605.51 / 801.14 723.71 / 723.71 Medical Nutrition Assessment Dietitian: Malnutrition Criteria Met Start: 07/29/23 11:31 Freq: Status: Active Protocol: Document 07/29/23 11:31 [id number] (Rec: 07/29/23 11:32 [id number]) Nutrition Malnutrition Evidence of Malnutrition Exists Yes Evidenced By Suboptimal Energy Intake ( Severe),Physical Changes ( Moderate) Intake Problem Inadequate Oral Intake Etiology related to acute illness/poor appetite Signs/Symptoms as evidenced by PO <50% x past 3 days Status Active Problem Clinical Problem Acute Disease or Injury Related Malnutrition Etiology severe related to suboptimal appetite and acute illness Signs/Symptoms as evidenced by PO intakes <50 % of estimated needs for 1 week and severe orbital fat loss and moderate clavicle muscle loss Status Active Problem Altered Nutrient-Related Laboratory Values Etiology related to CKD Signs/Symptoms as evidenced by BUN 84/Creat 2 .54 Status Active Problem Recommendation Dietitian Recommendations/Changes Continue sodium-restricted diet for now to manage medical conditions BUN/creat high, monitor need to restrict protein and fluids once PO adequacy established with meal. RD will order 120mL EPHP TID with medpass to provide supplemental energy. Lab / Micro Data 07/30/23 04:20 07/30/23 04:20 Labs: Laboratory Results - last 24 hr 07/30/23 04:20: WBC 16.2 H, RBC 3.43 L, Hgb 9.3 L, Hct 29.6 L, MCV 86.3, MCH 27.1, MCHC 31.4 L, RDW Std Deviation 47.3 H, RDW Coeff of Yue 15.3 H, Plt Count 162, MPV 10.8, Immature Gran % (Auto) 0.800, Neut % (Auto) 89.4 H, Lymph % (Auto) 3.9 L, [place] % (Auto) 5.4, Eos % (Auto) 0.4, Baso % (Auto) 0.1, Absolute Neuts (auto) 14.5 H, Absolute Lymphs (auto) 0.63 L, Nucleated RBC % 0.2, APTT 68.0 H, Sodium 138, Potassium 3.5, Chloride 103, Carbon Dioxide 25.0, Anion Gap 10, BUN 79 H, Creatinine 2.31 H, Estim Creat Clear Calc 26.77, Est GFR (MDRD) Af Amer 35 L, Est GFR (MDRD) Non-Af 29 L, BUN/Creatinine Ratio 34.2 H, Glucose 121 H, Calcium 8.0 L, Phosphorus 3.6, Magnesium 2.7 H, Total Bilirubin 1.00, AST 46 H, ALT 86 H, Alkaline Phosphatase 229 H, Total Protein 5.8 L, Albumin 2.0 L, Globulin 3.8, Albumin/Globulin Ratio 0.5 L, Vancomycin Trough 20.0 H Micro: Microbiology 07/26/23 21:08 Blood Culture (Wb) - Central Line Blood Culture - Preliminary No growth in 48 hours. 07/26/23 Unknown Blood Culture (Wb) - Central Line Blood Culture - Preliminary No growth in 48 hours. 07/27/23 07:55 Urine Catheter - Morales Urine Culture - Final Culture exhibits no growth. 07/26/23 23:45 Nasal Secretion Nasal Screen MRSA/MSSA - Final 07/26/23 23:30 Urine, Random Legionella Antigen - Final 07/26/23 23:30 Urine, Random Streptococcus pneumoniae Antigen (M - Final 07/26/23 21:10 Mucosa - Nasopharyngeal Influenza Types A,B Direct FA (DANIELA) - Final Influenzae A 07/26/23 21:10 Nasal Secretion SARS-CoV-2 Antigen (Rapid) - Final ABG Data ABG results: ABG 07/30/23 08:07 Specimen Type ZULEIKA Sample Site Central Line O2 % 2.0 VBG pH 7.37 VBG pO2 33 VBG HCO3 24 VBG Total CO2 25 VBG O2 Sat (Calc) 61 VBG Base Excess -1 POC Mix VBG pCO2 Pt Tmp 41.9 O2 Delivery Device Cannula Rhythm Strip Rhythm Strip: Sinus Rhythm Rate: 92 Physical Exam Narrative General: Alert and oriented x3, NAD. HEENT: Normocephalic, atraumatic. Mucous membrane moist without erythema. PERRLA, EOMI. Hearing is intact. Neck: Supple, no JVD. Trachea is midline. No thyromegaly or lymphadenopathy. Cardiovascular: Normal S1, S2. There is a 3/6 systolic murmur. No rubs or gallops. Respiratory: Breath sounds decreased at bases posteriorly. Abdomen: Normal bowel sounds, soft, nontender, no guarding or rebound, no organomegaly. Extremities: The patient has 2+ lower extremity edema. No clubbing or cyanosis. Assessment & Plan Assessment/Plan (1) NATALEE (acute kidney injury): (2) Chronic kidney disease, stage 3b: (3) Hypertension: (4) Septic shock: PLAN: Plan Impression/Plan: 78-year-old man with past history of chronic kidney disease stage G3b/A1, hypertension, HFrEF, BPH, osteoarthritis, and remote history of testicular cancer. The patient presents to the hospital with 4 to 6 weeks history of progressive weakness, malaise, dyspnea and cough. The patient is also experiencing increasing lower extremity edema over the past 2 to 4 weeks. He was admitted to hospital on 07/26/2023 with septic shock attributed to right lower lobe pneumonia due to influenza infection and possibly superimposed bacterial pneumonia. Nephrology is following the patient for acute kidney injury on chronic kidney disease. Acute kidney injury on chronic kidney disease stage G3b/A1. The patient has CKD from nephrosclerosis. Baseline serum creatinine has been around 2.00 mg/dL prior to this admission. Acute kidney injury with serum creatinine of 3.22 mg/dL on presentation is secondary to ischemic ATN related to septic shock. The patient had also been on losartan prior to admission. There was no evidence of urinary tract obstruction on renal ultrasound on 07/28/2023. I have low suspicion for other causes of NATALEE at this point. Overall, renal function has been slowly improving. Serum creatinine has decreased from 3.04 mg/dL on 07/27/2023 down to 2.31 mg/dL today on 07/29/2023. The patient is not oliguric Agree with current treatment. Treatment of ATN is largely supportive. Continue to keep MAP above 65 mmHg. Continue to hold ARB. I am okay with diuresis if needed. However, patient does not appear to be more volume overloaded to me compared to yesterday. Since the patient is not hyperkalemic, severely acidotic or volume overloaded, there is no urgent need for kidney replacement therapy. Recheck renal function, volume status, electrolytes, and acid-base status again tomorrow. History of hypertension. Holding losartan because of prior hypotension and NATALEE. Although he is on less vasopressor, BP still soft. Therefore, I would continue to hold losartan today. Will continue to monitor BP. Circulatory shock. The patient is being treated for septic shock attributed to right lower lobe pneumonia. There is a concern that the patient has cardiogenic shock as well. He has been diagnosed with influenza infection. He is getting oseltamavir. He is also receiving antibiotic for possible superimposed bacterial pneumonia. The patient is on IV vasopressor. Requirement of vasopressor has increased. There is a discussion of whether he will need inotrope added or use instead of norepinephrine. Overall coordination of care as per hospital medicine and critical care services. Nephrology plan discussed with Dr. Deisi Vazquez and Dr. Bocanegra.
[2023-07-30] MEDS: Potassium Chloride Oral Soln 20 MEQ/15 ML UDC 40 MEQ PO (09:46)
[2023-07-30] MEDS: Sodium Chloride 0.65% 1 SPRAY SPRAY.BTL 2 SPRAY NASAL ×2 (09:47→13:08)
[2023-07-30] MEDS: DOBUTamine 500mg PM 500 MG/250 ML IV.SOLN. 6.3 MG CONT INF (10:28)
--- NOTE | 2023-07-30 10:38 | PN.HOSP_ITS ---
Reason for Visit Reason for Visit: Shortness of breath/cough/malaise Subjective Subjective No issues overnight. Unfortunately, Levophed had to be uptitrated and he is now on 5 mcg/min. Clinically overall he is feeling better and his labs seems to be improving. I do suspect he has a component of sepsis along with cardiogenic shock. Discussed with intensive care medicine and we will plan on getting a mixed venous blood gas with initiation of dobutamine if extraction is poor. Objective Data Objective Data Vital Signs: Vital Signs Temp Pulse Resp BP Pulse Ox O2 Del Method O2 Flow Rate 97.3 F L 102 H 26 H 81/60 L 93 Nasal Cannula 2 07/30/23 08:00 07/30/23 09:00 07/30/23 09:00 07/30/23 10:28 07/30/23 09:00 07/30/23 09:00 07/30/23 09:00 Oxygen Flow Rate (L/min) 2 Oxygen Delivery Method Nasal Cannula Weight: 83.915 kg Body Mass Index (BMI) 26.4 Intake & Output: Intake and Output for Last 24 Hours 07/28/23 07/29/23 07/30/23 23:59 23:59 23:59 Intake Total 1784.99 / 1892.49 1455.51 / 1701.14 923.71 / 923.71 Output Total 1150 / 1350 850 / 900 200 / 200 Balance 634.99 / 542.49 605.51 / 801.14 723.71 / 723.71 Medical Nutrition Assessment Dietitian: Malnutrition Criteria Met Start: 07/29/23 11:31 Freq: Status: Active Protocol: Document 07/29/23 11:31 [email or web address] (Rec: 07/29/23 11:32 [id number]) Nutrition Malnutrition Evidence of Malnutrition Exists Yes Evidenced By Suboptimal Energy Intake ( Severe),Physical Changes ( Moderate) Intake Problem Inadequate Oral Intake Etiology related to acute illness/poor appetite Signs/Symptoms as evidenced by PO <50% x past 3 days Status Active Problem Clinical Problem Acute Disease or Injury Related Malnutrition Etiology severe related to suboptimal appetite and acute illness Signs/Symptoms as evidenced by PO intakes <50 % of estimated needs for 1 week and severe orbital fat loss and moderate clavicle muscle loss Status Active Problem Altered Nutrient-Related Laboratory Values Etiology related to CKD Signs/Symptoms as evidenced by BUN 84/Creat 2 .54 Status Active Problem Recommendation Dietitian Recommendations/Changes Continue sodium-restricted diet for now to manage medical conditions BUN/creat high, monitor need to restrict protein and fluids once PO adequacy established with meal. RD will order 120mL EPHP TID with medpass to provide supplemental energy. Lab / Micro Data 07/30/23 04:20 07/30/23 04:20 Labs: Laboratory Results - last 24 hr 07/30/23 04:20: WBC 16.2 H, RBC 3.43 L, Hgb 9.3 L, Hct 29.6 L, MCV 86.3, MCH 27.1, MCHC 31.4 L, RDW Std Deviation 47.3 H, RDW Coeff of Yue 15.3 H, Plt Count 162, MPV 10.8, Immature Gran % (Auto) 0.800, Neut % (Auto) 89.4 H, Lymph % (Auto) 3.9 L, [place] % (Auto) 5.4, Eos % (Auto) 0.4, Baso % (Auto) 0.1, Absolute Neuts (auto) 14.5 H, Absolute Lymphs (auto) 0.63 L, Nucleated RBC % 0.2, APTT 68.0 H, Sodium 138, Potassium 3.5, Chloride 103, Carbon Dioxide 25.0, Anion Gap 10, BUN 79 H, Creatinine 2.31 H, Estim Creat Clear Calc 26.77, Est GFR (MDRD) Af Amer 35 L, Est GFR (MDRD) Non-Af 29 L, BUN/Creatinine Ratio 34.2 H, Glucose 121 H, Calcium 8.0 L, Phosphorus 3.6, Magnesium 2.7 H, Total Bilirubin 1.00, AST 46 H, ALT 86 H, Alkaline Phosphatase 229 H, Total Protein 5.8 L, Albumin 2.0 L, Globulin 3.8, Albumin/Globulin Ratio 0.5 L, Vancomycin Trough 20.0 H Micro: Microbiology 07/26/23 21:08 Blood Culture (Wb) - Central Line Blood Culture - Preliminary No growth in 48 hours. 07/26/23 Unknown Blood Culture (Wb) - Central Line Blood Culture - Preliminary No growth in 48 hours. 07/27/23 07:55 Urine Catheter - Morales Urine Culture - Final Culture exhibits no growth. 07/26/23 23:45 Nasal Secretion Nasal Screen MRSA/MSSA - Final 07/26/23 23:30 Urine, Random Legionella Antigen - Final 07/26/23 23:30 Urine, Random Streptococcus pneumoniae Antigen (M - Final 07/26/23 21:10 Mucosa - Nasopharyngeal Influenza Types A,B Direct FA (DANIELA) - Final Influenzae A 07/26/23 21:10 Nasal Secretion SARS-CoV-2 Antigen (Rapid) - Final ABG Data ABG results: ABG 07/30/23 08:07 Specimen Type ZULEIKA Sample Site Central Line O2 % 2.0 VBG pH 7.37 VBG pO2 33 VBG HCO3 24 VBG Total CO2 25 VBG O2 Sat (Calc) 61 VBG Base Excess -1 POC Mix VBG pCO2 Pt Tmp 41.9 O2 Delivery Device Cannula Rhythm Strip Rhythm Strip: Sinus Rhythm Rate: 92 Physical Exam Const alert, oriented x3, no apparent distress and average body habitus Constitutional Narrative: Elderly, white male, sitting up in a chair at the bedside, watching television,, nursing at bedside, patient appears older than stated age, currently appears comfortable and nontoxic General Appearance: cooperative HEENT normocephalic, head/scalp atraumatic and moist oral mucous membranes HEENT Narrative: Mallampati 2, no thrush Resp normal respiratory effort, no retractions, no use of accessory muscles and No clear to auscultation bilaterally Resp Narrative: Patient with right upper lobe wheeze that changes with cough, bibasilar crackles noted Auscultation: crackles and wheezes; Negative for rhonchi Cardio regular rate, regular rhythm, S1 normal heart sound, S2 normal heart sound, no rub, no gallops and no clicks; Negative for no murmurs Cardio Narrative: 2 out of 6 systolic murmur loudest at left lower sternal border GI normal to inspection, nondistended, normoactive bowel sounds, soft to palpation and non-tender Extremity Extremity Narrative: 2+ pitting edema right lower extremity, 3+ left lower extremity, no cyanosis or clubbing Skin Skin Narrative: Right subclavian vein triple-lumen catheter in place-no signs of infection Neuro oriented x3, moves all extremities and no focal motor deficits Neuro Narrative: Generalized weakness noted-proximal greater than distal Sensorium / Orientation: awake, alert, oriented to person and oriented to place Speech: speech normal Psych affect normal Psych Narrative: Eye contact is good, patient is pleasant Assessment & Plan Assessment/Plan (1) Septic shock: (2) D-dimer, elevated: (3) Elevated troponin: (4) Acute kidney injury superimposed on CKD: (5) Hypoxia: (6) Thrombocytopenia: (7) Influenza A H1N1 infection: (8) Leukocytosis: (9) Transaminitis: (10) Cardiomyopathy: (11) DVT, bilateral lower limbs: (12) Severe aortic stenosis: (13) Severe mitral valve regurgitation: (14) Diastolic dysfunction: (15) Cardiogenic shock: (16) Moderate to severe mitral regurgitation: PLAN: Plan Combined cardiogenic and septic shock secondary to influenza A, +/- superimposed bacterial pneumonia -Urine culture unremarkable -Blood cultures with no growth to date -Continue broad-spectrum antibiotics with vancomycin and Zosyn and will need complete course of treatment as cultures were obtained after antibiotics were initiated -Chest x-ray does show a right lower lobe infiltrate -Continue midodrine 10 mg 3 times daily -Tamiflu day 5 of 5 -Currently on pressors--> wean as able -Levophed has been uptitrated to 5 mcg/min -Mixed venous blood gas was obtained and extraction is poor therefore dobutamine has been added -Hopeful that the addition of dobutamine helps optimize his cardiac function some and get him back on the Starling curve with improved cardiac function and then will hopefully able to wean Levophed -Critical care medicine --> discussed case with center human resources manager Influenza A -Tamiflu as above -Supportive care Acute hypoxia -Patient shows no signs of respiratory failure remains on 2 L nasal cannula -Continue supplemental oxygen as needed and wean as able -Echo was performed and showed depressed EF - we will likely be able to discontinue oxygen once we can start some diuresis however hemodynamics prohibit this at this time Bilateral lower extremity DVTs -Continue heparin drip -Will need long-term oral anticoagulation likely with Coumadin but could cons ider Eliquis depending on renal function Cardiomyopathy -Echocardiogram shows an EF of 15% with stage II diastolic dysfunction, severe global dysfunction is noted along with moderate to severe mitral valve regurgitation indicating his EF might actually even be lower than 15%, right ventricular systolic pressure is 52 mmHg and he has severe aortic stenosis with a valve area of 0.6 cm -Cardiology is following -We will utilize Lasix when hemodynamics allow -Cardiology following Leukocytosis -White count is slowly trending down with utilization of antibiotics -Chest x-ray does show right lower lobe infiltrate however we have been unable to obtain a sputum sample Severe aortic stenosis/moderate to severe mitral valve regurgitation -Will be preload dependent so once able to diurese we will have to be sure not to diurese too aggressively -Cardiology is following--> May need to be considered for TAVR in the future -Continue to monitor volume status and diurese as able when hemodynamics permit Lactic acidosis -Resolved Thrombocytopenia-acute -Resolved--> suspect related to acute illness as above -Platelet count is up to 162,000 Troponin elevation -suspect stress induced ischemia and related to his cardiomyopathy -Will discontinue Plavix but continue aspirin in light of requiring full anticoagulation to avoid triple therapy -No recent stent placement -Echocardiogram as noted above -Cardiology is following Mild transaminitis -May be related to acute infection as well as his cardiomyopathy and him being off [place] curve -Continuing to improve slowly -Elevations are mild NATALEE on CKD stage IV -Baseline serum creatinine appears to be between 1.7 and 2.0 -Serum creatinine on presentation was greater than 3--> trending down to 2.54 today -Continue to monitor closely -Nephrology is following -No current needs for renal replacement therapy -Avoid nephrotoxins as able -Renally dose medications -Renal ultrasound shows no specific abnormalities related to obstruction or hydronephrosis History of hypertension -Patient has been hypotensive and on pressors -Continue to monitor -Will need to obtain home medication list History of glaucoma -Home medication list is pending and will initiate any medications after obtained Hyperlipidemia -Continue home statin 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
[2023-07-30] MEDS: Tamsulosin HCl 0.4 MG Capsule PO (17:35)
[2023-07-30] MEDS: Oseltamivir Phosphate 30 MG Capsule PO (22:43)
[2023-07-30] MEDS: Atorvastatin Calcium 20 MG Tablet PO (22:43)
[2023-07-31] VITALS (26 sets, daily range): BP systolic 62–96; BP diastolic 44–80; PULSE 97–109; RESP 16–27; TEMP 36.4–36.6; O2SAT 92–100
[2023-07-31] MEDS: HEPARIN/D5w 25,000 UNITS 25,000 UNITS/250 ML IV.SOLN. 7 UNITS CONT INF (00:37)
[2023-07-31 05:02] LABS: Absolute Lymphocyte Count 0.46 X10^3/uL (0.83-4.51); Absolute Neutrophil Count 11.2 X10^3/uL (2.0-7.7); Basophil# 0.02 X10^3/uL; Basophil% 0.2 % (0-1); Eosinophil# 0.07 X10^3/uL; Eosinophils% 0.6 % (0-5); Hematocrit 26.8 % (40-54); Hemoglobin 8.6 g/dL (13.0-16.5); Lymphocyte # 0.46 X10^3/ul (0.83-4.51); Lymphocyte % 3.7 % (19-41); Mean Corp Hgb Conc 32.1 g/dL (32-36); Mean Corpuscular Hgb 27.6 pg (27.0-32.0); Mean Corpuscular Volume 85.9 fL (80-94); Mean Platelet Vol. 10.7 fl (6.2-12.0); Monocyte% 5.6 % (0-10); NRBC Flagged by Analyzer 0.9 % (0-5); Neutrophil # 11.21 X10^3/uL (2.7-7.7); Neutrophil % 88.9 % (47-70); POSITIVE DIFFERENTIAL YES; Platelet Count 160 K/mm3 (150-450); RBC Distribution Width CV 15.5 % (11.6-14.6); Red Blood Count 3.12 M/mm3 (4.6-6.2); White Blood Count 12.6 K/mm3 (4.4-11.0)
[2023-07-31 05:16] LABS: Differential Indicated SCAN CRITERIA MET
[2023-07-31 05:20] LABS: Partial Thromboplast Time 61.1 Seconds (24.1-36.2)
[2023-07-31 05:24] LABS: ALB/GLOB Ratio 0.5 RATIO (0.9-2.4); AST(SGOT) 38 U/L (15-37); Alanine Aminotransfer ALT/SGPT 72 U/L (16-61); Albumin, Serum 1.9 g/dL (3.2-5.0); Alkaline Phosphatase 221 U/L (45-117); Anion Gap 8 (5-15); BUN 75 mg/dL (7-18); BUN/Creat Ratio 34.4 RATIO (10-20); Chloride 104 mmol/L (98-107); Creatinine, Serum 2.18 mg/dL (0.70-1.30); EST Glomerular Filtration Rate 31 mL/min (>60); Est Glom Filt Rate - Afr Amer 38 mL/min (>60); Estimated Creatinine Clearance 28.37 ml/min; Globulin 3.9 g/dL (2.2-4.2); Glucose 122 mg/dL (74-106); Potassium 3.5 mmol/L (3.5-5.1); Protein, Total 5.8 g/dL (6.4-8.2); Sodium Level 137 mmol/L (136-145)
[2023-07-31] MEDS: Piperacil/Tazobactam 3.375 GM in 0.9% Normal Saline (50mL MB+) 50 ML IV ×2 (05:24→13:22)
[2023-07-31] MEDS: DOBUTamine 500mg PM 500 MG/250 ML IV.SOLN. 12.6 MG CONT INF (05:24)
[2023-07-31] MEDS: 0.9% Saline Lock 10 ML Syringe IV (05:25)
[2023-07-31 06:13] LABS: Differential Comment SCANNED
[2023-07-31] MEDS: Vancomycin HCl 750 MG in 0.9% Normal Saline (250mL Bag) 250 ML 250 MG IV (07:09)
[2023-07-31] MEDS: Potassium Chloride Oral Soln 20 MEQ/15 ML UDC 40 MEQ PO (07:09)
[2023-07-31] MEDS: 0.9% Normal Saline (250mL Bag) 250 ML 15 ML IV (07:12)
--- NOTE | 2023-07-31 07:16 | PN.CC_ITS ---
Assessment & Plan Assessment/Plan (1) Septic shock: (2) Acute kidney injury superimposed on CKD: (3) Pneumonia of both lower lobes: QUALIFIERS: Pneumonia type: due to unspecified organism Qualified Code(s): J18.9 - Pneumonia, unspecified organism PLAN: Plan RECOMMENDATIONS: 1. Continue dobutamine and midodrine to maintain a MAP greater than 65 2. Likely complete 10 days of antibiotics 3. Wean supplemental oxygen as tolerated 4. Check mixed venous blood gas. Possibly add dobutamine versus stress dose steroids 5. Stabilize hemodynamics, but may need DAMIÁN to evaluate aortic valve 6. Continue heparin drip for possible workup of cardiac abnormalities 7. Defer to cardiology on timing of evaluation of aortic valve IMPRESSIONS: 1. Septic shock secondary to right lower lobe pneumonia secondary to influenza Unclear if patient has a secondary infection such as Staph aureus associated with influenza. Respiratory status is doing well, but patient does not have any history of lung pathology or smoking. Unfortunately, patient did receive antibiotics prior to cultures, so may need 10 days of treatment despite negative cultures, especially if patient is to have a prosthetic device placed. Patient is on dobutamine at this time, so diuresis will have to be held. Patient did have some mild improvement in leukocytosis following appropriate antibiotics. Will recheck mixed venous gas to see if there is improved perfu hector 2. Acute hypoxic respiratory insufficiency Patient does not have a history of needs of supplemental oxygen previously. Patient does have a right lower lobe infiltrate noted on chest x- ray. Will likely need a follow-up x-ray to be sure this resolves. No indicati on for BiPAP or ABG at this time from my perspective. Will continue with supportive care. Unclear if patient may have an element of central sleep apnea overnight given cardiac strain leading to overnight increased oxygen requirements. 3. Acute on chronic kidney disease Nephrology consulted. Improving. True baseline creatinine unclear at this time, but appears to be at least stage IIIb. Clinical suspicion for prerenal etiology secondary to problem #1 and possible congestive heart failure. Patient recently did receive diuretics intermittently. It does appear the patient is slightly delayed in presentation. Patient is making urine at this time and function appears to be slightly improved over short hospital course. No indication for renal replacement therapy at this time, but it is possible moving forward. Patient would likely be a very poor candidate for dialysis given cardiac function 4. Cardiogenic shock secondary to acute on chronic systolic congestive heart failure with MR and Cardiology consulted. Patient with significant lower extremity edema, but known DVTs. Echocardiogram shows significant decrease in EF with aortic stenosis and MR. Patient will be significantly volume dependent. Will hold on any diuresis for now given problem #1 and need for pressors. Patient is on a heparin drip, but clinical suspicion is elevated troponin is secondary to supply demand mismatch. Hold on transition to 10 a inhibitor as patient may require additional testing in the future. Possibly add dobutamine pending results of mixed venous 5. Thrombocytopenia/advanced age/poor historian/hyperlipidemia/history of testicular cancer/hypertension Complicates care, management, recovery and prognosis. Clinical suspicion is for thrombocytopenia secondary to problem #1. Patient is on heparin at this time. Will hold antihypertensives given problem #1 also. Okay to continue with statin from my perspective. TIME: 34 minutes critical care time spent addressing patient's septic shock, hypoxia, CHF, acute kidney injury, review of all data and collaboration with care team Subjective Subjective Patient did okay overnight. Patient was able to be transition from Levophed to dobutamine and is tolerating this well. Patient has had some periods of nonsustained V. tach overnight, but is denying any chest pain. Patient still has some shortness of breath with minimal exertion. Patient is requiring only minimal nasal cannula oxygen to maintain saturations. Objective Data Objective Data Vital Signs: Vital Signs Temp Pulse Resp BP Pulse Ox O2 Del Method O2 Flow Rate 36.4 C L 101 H 25 H 89/70 L 94 Nasal Cannula 2 07/31/23 00:00 07/31/23 01:00 07/31/23 01:00 07/31/23 01:00 07/31/23 01:00 07/31/23 04:00 07/31/23 04:00 Oxygen Flow Rate (L/min) 2 Oxygen Delivery Method Nasal Cannula Weight: 85.304 kg Body Mass Index (BMI) 26.9 Intake & Output: Intake and Output for Last 24 Hours 07/29/23 07/30/23 07/31/23 23:59 23:59 23:59 Intake Total 1455.51 / 1701.14 1458.26 / 2090.86 1290.19 / 1290.19 Output Total 850 / 900 850 / 1250 650 / 650 Balance 605.51 / 801.14 608.26 / 840.86 640.19 / 640.19 Medical Nutrition Assessment Dietitian: Malnutrition Criteria Met Start: 07/29/23 11:31 Freq: Status: Active Protocol: Document 07/29/23 11:31 (Rec: 07/29/23 11:32 [id number]) Nutrition Malnutrition Evidence of Malnutrition Exists Yes Evidenced By Suboptimal Energy Intake ( Severe),Physical Changes ( Moderate) Intake Problem Inadequate Oral Intake Etiology related to acute illness/poor appetite Signs/Symptoms as evidenced by PO <50% x past 3 days Status Active Problem Clinical Problem Acute Disease or Injury Related Malnutrition Etiology severe related to suboptimal appetite and acute illness Signs/Symptoms as evidenced by PO intakes <50 % of estimated needs for 1 week and severe orbital fat loss and moderate clavicle muscle loss Status Active Problem Altered Nutrient-Related Laboratory Values Etiology related to CKD Signs/Symptoms as evidenced by BUN 84/Creat 2 .54 Status Active Problem Recommendation Dietitian Recommendations/Changes Continue sodium-restricted diet for now to manage medical conditions BUN/creat high, monitor need to restrict protein and fluids once PO adequacy established with meal. RD will order 120mL EPHP TID with medpass to provide supplemental energy. Lab / Micro Data Attestation: I reviewed the patient's lab results. 07/31/23 04:47 07/31/23 04:47 Labs: Laboratory Results - last 24 hr 07/30/23 04:20: Phosphorus 3.6, Magnesium 2.7 H 07/31/23 04:47: WBC 12.6 H, RBC 3.12 L, Hgb 8.6 L, Hct 26.8 L, MCV 85.9, MCH 27.6, MCHC 32.1, RDW Std Deviation 48.0 H, RDW Coeff of Yue 15.5 H, Plt Count 1 60, MPV 10.7, Immature Gran % (Auto) 1.000 H, Neut % (Auto) 88.9 H, Lymph % (Auto) 3.7 L, [place] % (Auto) 5.6, Eos % (Auto) 0.6, Baso % (Auto) 0.2, Absolute Neuts (auto) 11.2 H, Absolute Lymphs (auto) 0.46 L, Nucleated RBC % 0.9, Differential Comment SCANNED, APTT 61.1 H, Sodium 137, Potassium 3.5, Chloride 104, Carbon Dioxide 25.0, Anion Gap 8, BUN 75 H, Creatinine 2.18 H, Estim Creat Clear Calc 28.37, Est GFR (MDRD) Af Amer 38 L, Est GFR (MDRD) Non-Af 31 L, BUN/Creatinine Ratio 34.4 H, Glucose 122 H, Calcium 8.0 L, Total Bilirubin 1.00, AST 38 H, ALT 72 H, Alkaline Phosphatase 221 H, Total Protein 5.8 L, Albumin 1.9 L, Globulin 3.9, Albumin/Globulin Ratio 0.5 L Micro: Microbiology 07/26/23 21:08 Blood Culture (Wb) - Central Line Blood Culture - Preliminary No growth in 48 hours. 07/26/23 Unknown Blood Culture (Wb) - Central Line Blood Culture - Prel iminary No growth in 48 hours. 07/27/23 07:55 Urine Catheter - Morales Urine Culture - Final Culture exhibits no growth. 07/26/23 23:45 Nasal Secretion Nasal Screen MRSA/MSSA - Final 07/26/23 23:30 Urine, Random Legionella Antigen - Final 07/26/23 23:30 Urine, Random Streptococcus pneumoniae Antigen (M - Final 07/26/23 21:10 Mucosa - Nasopharyngeal Influenza Types A,B Direct FA (DANIELA) - Final Influenzae A 07/26/23 21:10 Nasal Secretion SARS-CoV-2 Antigen (Rapid) - Final ABG Data ABG results: ABG 07/30/23 08:07 Specimen Type ZULEIKA Sample Site Central Line O2 % 2.0 VBG pH 7.37 VBG pO2 33 VBG HCO3 24 VBG Total CO2 25 VBG O2 Sat (Calc) 61 VBG Base Excess -1 POC Mix VBG pCO2 Pt Tmp 41.9 O2 Delivery Device Cannula Attestation: I personally reviewed and interpreted this ABG as follows: Interpretation: VBG is notable for having a low mixed venous saturation, so patient was initiated on dobutamine. Rhythm Strip Rhythm Strip: Sinus Tach Rate: 101 Ectopy: PVC(s) and - (Intermittent nonsustained V. tach) Physical Exam Const alert, no apparent distress and average body habitus Constitutional Narrative: Readily interacts, but very poor historian. Sitting in the chair on my evaluation General Appearance: cooperative HEENT normocephalic and head/scalp atraumatic Eyes EOMs intact bilaterally and conjunctivae normal Eyes Narrative: Some cloudiness noted of the left eye Neck no lymphadenopathy, supple and no JVD Neck Narrative: Patient has improved bruising over the lateral sides of his neck from previous EJ attempts. There is no signs of active bleeding or infection at this time. General: CVC in place Chest Chest Narrative: Right subclavian noted. Some blood noted under dressing Resp Resp Narrative: No conversational dyspnea noted Effort and Inspection: Negative for tachypneic Auscultation: diminished lung sounds; Negative for rales, rhonchi or wheezes Cardio regular rate and regular rhythm Cardio Narrative: Mild grade 2 out of 6 systolic ejection murmur at the lower sternal border. Heart Sounds: murmur systolic II/ low-pitched mid right sternal border GI normal to inspection, nondistended, normoactive bowel sounds, soft to palpation, non-tender and non-distended Extremity General Extremity: edema bilateral (4+ with right improvement more than left) lower extremity; Negative for clubbing Skin no rashes or lesions noted General Skin Exam: Negative for mottling Neuro CN's II-XII intact bilaterally, moves all extremities and no focal motor deficits Speech: speech normal Psych cooperative and affect normal Charges/Coding Procedures Hospitalists Procedures: 48157 Critial Care 1st Hr
[2023-07-31 07:35] LABS: Blood Gas Specimen Type VEN; O2 Delivery Device Not entered; SITE Not entered; VBG BASE EXCESS -1 mmol/L (-1.0-3.5); VBG Bicarbonate 23 mmol/L (22-26); VBG PO2 30 mmHg (25-40); VBG SO2 59 % (50-70); VBG TCO2 24 mmol/L (23-33); VBG pCO2 36.4 mmHg (41-51); VBG pH 7.41 (7.32-7.42)
[2023-07-31] MEDS: Aspirin 81 MG TAB.CHEW PO (08:49)
[2023-07-31] MEDS: Midodrine HCl 5 MG Tablet 10 MG PO ×2 (08:49→13:22)
[2023-07-31] MEDS: Zinc Sulfate 50 mg zinc (220 mg) ORAL capsule PO (08:49)
[2023-07-31] MEDS: Cholecalciferol (Vit D3) 125 MCG CAPSULE (5,000 UNITS) PO (08:49)
[2023-07-31] MEDS: Ascorbic Acid 500 MG Tablet 1000 MG PO (08:49)
--- NOTE | 2023-07-31 09:05 | PN.CARD_ITS ---
Subjective Subjective Sitting up in chair. Denies any complaints. Feels better. Objective Data Vital Signs: Vital Signs Temp Pulse Resp BP Pulse Ox O2 Del Method O2 Flow Rate 97.5 F L 101 H 22 H 83/63 L 100 Nasal Cannula 2 07/31/23 06:00 07/31/23 08:15 07/31/23 08:15 07/31/23 08:15 07/31/23 08:15 07/31/23 08:15 07/31/23 08:15 Oxygen Flow Rate (L/min) 2 Oxygen Delivery Method Nasal Cannula Weight: 188 lb 1 oz Body Mass Index (BMI) 26.9 Intake & Output: Intake and Output for Last 24 Hours 07/29/23 07/30/23 07/31/23 23:59 23:59 23:59 Intake Total 1455.51 / 1701.14 1458.26 / 2090.86 1595.84 / 1595.84 Output Total 850 / 900 850 / 1250 650 / 650 Balance 605.51 / 801.14 608.26 / 840.86 945.84 / 945.84 Lab / Micro Data 07/31/23 04:47 07/31/23 04:47 Labs: Laboratory Results - last 24 hr 07/31/23 04:47: WBC 12.6 H, RBC 3.12 L, Hgb 8.6 L, Hct 26.8 L, MCV 85.9, MCH 2 7.6, MCHC 32.1, RDW Std Deviation 48.0 H, RDW Coeff of Yue 15.5 H, Plt Count 160, MPV 10.7, Immature Gran % (Auto) 1.000 H, Neut % (Auto) 88.9 H, Lymph % (Auto) 3.7 L, [place] % (Auto) 5.6, Eos % (Auto) 0.6, Baso % (Auto) 0.2, Absolute Neuts (auto) 11.2 H, Absolute Lymphs (auto) 0.46 L, Nucleated RBC % 0.9, Differential Comment SCANNED, APTT 61.1 H, Sodium 137, Potassium 3.5, Chloride 104, Carbon Dioxide 25.0, Anion Gap 8, BUN 75 H, Creatinine 2.18 H, Estim Creat Clear Calc 28.37, Est GFR (MDRD) Af Amer 38 L, Est GFR (MDRD) Non-Af 31 L, BUN/Creatinine Ratio 34.4 H, Glucose 122 H, Calcium 8.0 L, Total Bilirubin 1.00, AST 38 H, ALT 72 H, Alkaline Phosphatase 221 H, Total Protein 5.8 L, Albumin 1.9 L, Globulin 3.9, Albumin/Globulin Ratio 0.5 L ABG Data ABG results: ABG 07/31/23 07:31 Specimen Type ZULEIKA Sample Site Not entered O2 % 2.0 VBG pH 7.41 VBG pO2 30 VBG HCO3 23 VBG Total CO2 24 VBG O2 Sat (Calc) 59 VBG Base Excess -1 POC Mix VBG pCO2 Pt Tmp 36.4 L O2 Delivery Device Not entered Rhythm Strip Rhythm Strip: Sinus Tach Rate: 101 Ectopy: PVC(s) and - (Intermittent nonsustained V. tach) Cardiology Labs/Tests 07/31/23 04:47: WBC 12.6 H, RBC 3.12 L, Hgb 8.6 L, Hct 26.8 L, MCV 85.9, MCH 27.6, MCHC 32.1, Plt Count 160, MPV 10.7, Immature Gran % (Auto) 1.000 H, Neut % (Auto) 88.9 H, Lymph % (Auto) 3.7 L, [place] % (Auto) 5.6, Eos % (Auto) 0.6, Baso % (Auto) 0.2, Absolute Neuts (auto) 11.2 H, Nucleated RBC % 0.9, APTT 61.1 H, Sodium 137, Potassium 3.5, Chloride 104, Carbon Dioxide 25.0, Anion Gap 8, BUN 75 H, Creatinine 2.18 H, Est GFR (MDRD) Af Amer 38 L, Est GFR (MDRD) Non-Af 31 L , BUN/Creatinine Ratio 34.4 H, Glucose 122 H, Calcium 8.0 L, Total Bilirubin 1.00 07/31/23 07:31: VBG pH 7.41, VBG pO2 30, VBG HCO3 23, VBG O2 Sat (Calc) 59, VBG Base Excess -1 Rhythm: EKG: ECHO: Stress Test: Cardiac Cath: PCI: CT Surgery: Holter monitor: EPS: PPM: CXR: Chest CT Scan: Physical Exam Narrative Comfortable. No apparent distress. Heart sounds 1 and 2 are noted. Chest examination shows decreased air entry at bilateral bases. 3+ ankle edema. Assessment & Plan Assessment/Plan (1) Elevated troponin I level: PLAN: Likely type II elevation in the setting of sepsis with influenza A pneumonia. Continue aspirin. (2) Septic shock: PLAN: Combination cardiogenic and septic shock. On dobutamine infusion. (3) Cardiomyopathy: PLAN: LVEF 15%. Monitor inputs and outputs closely. On dobutamine infusion. (4) Severe aortic stenosis: PLAN: Will need consideration for TAVR as outpatient. (5) Moderate to severe mitral regurgitation: PLAN: Monitor fluid intake and output. (6) Influenza A with pneumonia: PLAN: As per critical care. (7) CKD (chronic kidney disease) stage 4, GFR 15-29 ml/min: PLAN: Continue to monitor. Consider nephrology consult. (8) NSVT (nonsustained ventricular tachycardia): PLAN: 4 beat run of NSVT this morning. Check magnesium. Keep potassium level above 4. Continue to monitor particularly as the patient is on dobutamine infusion. (9) DVT, bilateral lower limbs: PLAN: On heparin. PLAN: Plan This patient has complex clinical presentation. He has influenza A pneumonia, severe LV systolic dysfunction, severe aortic valve stenosis, moderate to severe mitral regurgitation and acute bilateral DVTs. He is on dobutamine infusion for inotropic support. I will recommend to consider transferring him to a tertiary care center as he remains high risk.
--- NOTE | 2023-07-31 09:45 | PCM.PN.REN ---
Subjective Subjective Resting in bed, no overnight events. Objective Data Objective Data Vital Signs: Vital Signs Temp Pulse Resp BP Pulse Ox O2 Del Method O2 Flow Rate 97.5 F L 101 H 22 H 83/63 L 100 Nasal Cannula 2 07/31/23 06:00 07/31/23 08:15 07/31/23 08:15 07/31/23 08:15 07/31/23 08:15 07/31/23 08:15 07/31/23 08:15 Oxygen Flow Rate (L/min) 2 Oxygen Delivery Method Nasal Cannula Weight: 85.304 kg Body Mass Index (BMI) 26.9 Intake & Output: Intake and Output for Last 24 Hours 07/29/23 07/30/23 07/31/23 23:59 23:59 23:59 Intake Total 1455.51 / 1701.14 1458.26 / 2090.86 1645.84 / 1645.84 Output Total 850 / 900 850 / 1250 650 / 650 Balance 605.51 / 801.14 608.26 / 840.86 995.84 / 995.84 Medical Nutrition Assessment Dietitian: Malnutrition Criteria Met Start: 07/29/23 11:31 Freq: Status: Active Protocol: Document 07/29/23 11:31 (Rec: 07/29/23 11:32 [id number]) Nutrition Malnutrition Evidence of Malnutrition Exists Yes Evidenced By Suboptimal Energy Intake ( Severe),Physical Changes ( Moderate) Intake Problem Inadequate Oral Intake Etiology related to acute illness/poor appetite Signs/Symptoms as evidenced by PO <50% x past 3 days Status Active Problem Clinical Problem Acute Disease or Injury Related Malnutrition Etiology severe related to suboptimal appetite and acute illness Signs/Symptoms as evidenced by PO intakes <50 % of estimated needs for 1 week and severe orbital fat loss and moderate clavicle muscle loss Status Active Problem Altered Nutrient-Related Laboratory Values Etiology related to CKD Signs/Symptoms as evidenced by BUN 84/Creat 2 .54 Status Active Problem Recommendation Dietitian Recommendations/Changes Continue sodium-restricted diet for now to manage medical conditions BUN/creat high, monitor need to restrict protein and fluids once PO adequacy established with meal. RD will order 120mL EPHP TID with medpass to provide supplemental energy. Lab / Micro Data 07/31/23 04:47 07/31/23 04:47 Labs: Laboratory Results - last 24 hr 07/31/23 04:47: WBC 12.6 H, RBC 3.12 L, Hgb 8.6 L, Hct 26.8 L, MCV 85.9, MCH 27.6, MCHC 32.1, RDW Std Deviation 48.0 H, RDW Coeff of Yue 15.5 H, Plt Count 160, MPV 10.7, Immature Gran % (Auto) 1.000 H, Neut % (Auto) 88.9 H, Lymph % (Auto) 3.7 L, [place] % (Auto) 5.6, Eos % (Auto) 0.6, Baso % (Auto) 0.2, Absolute Neuts (auto) 11.2 H, Absolute Lymphs (auto) 0.46 L, Nucleated RBC % 0.9, Differential Comment SCANNED, APTT 61.1 H, Sodium 137, Potassium 3.5, Chloride 104, Carbon Dioxide 25.0, Anion Gap 8, BUN 75 H, Creatinine 2.18 H, Estim Creat Clear Calc 28.37, Est GFR (MDRD) Af Amer 38 L, Est GFR (MDRD) Non-Af 31 L, BUN/Creatinine Ratio 34.4 H, Glucose 122 H, Calcium 8.0 L, Total Bilirubin 1.00, AST 38 H, ALT 72 H, Alkaline Phosphatase 221 H, Total Protein 5.8 L, Albumin 1.9 L, Globulin 3.9, Albumin/Globulin Ratio 0.5 L Micro: Microbiology 07/26/23 21:08 Blood Culture (Wb) - Central Line Blood Culture - Preliminary No growth in 48 hours. 07/26/23 Unknown Blood Culture (Wb) - Central Line Blood Culture - Preliminary No growth in 48 hours. 07/27/23 07:55 Urine Catheter - Morales Urine Culture - Final Culture exhibits no growth. 07/26/23 23:45 Nasal Secretion Nasal Screen MRSA/MSSA - Final 07/26/23 23:30 Urine, Random Legionella Antigen - Final 07/26/23 23:30 Urine, Random Streptococcus pneumoniae Antigen (M - Final 07/26/23 21:10 Mucosa - Nasopharyngeal Influenza Types A,B Direct FA (DANIELA) - Final Influenzae A 07/26/23 21:10 Nasal Secretion SARS-CoV-2 Antigen (Rapid) - Final ABG Data ABG results: ABG 07/31/23 07:31 Specimen Type ZULEIKA Sample Site Not entered O2 % 2.0 VBG pH 7.41 VBG pO2 30 VBG HCO3 23 VBG Total CO2 24 VBG O2 Sat (Calc) 59 VBG Base Excess -1 POC Mix VBG pCO2 Pt Tmp 36.4 L O2 Delivery Device Not entered Rhythm Strip Rhythm Strip: Sinus Tach Rate: 101 Ectopy: PVC(s) and - (Intermittent nonsustained V. tach) Physical Exam Narrative General: Alert and oriented x3, NAD. Normal S1, S2. There is a 3/6 systolic murmur. No rubs or gallops. Breath sounds decreased at bases posteriorly with audible expiratory wheezing Normal bowel sounds, soft, nontender 1-2+ lower extremity edema. Assessment & Plan Assessment/Plan (1) NATALEE (acute kidney injury): (2) Chronic kidney disease, stage 3b: (3) Hypertension: (4) Septic shock: PLAN: Plan Impression/Plan: 78-year-old man with past history of chronic kidney disease stage G3b/A1, hypertension, HFrEF, BPH, osteoarthritis, and remote history of testicular cancer. The patient presents to the hospital with 4 to 6 weeks history of progressive weakness, malaise, dyspnea and cough. The patient was experiencing increasing lower extremity edema over the past 2 to 4 weeks. He was admitted to hospital on 07/26/2023 with septic shock attributed to right lower lobe pneumonia due to influenza infection and possibly superimposed bacterial pneumonia. Nephrology is following the patient for acute kidney injury on chronic kidney disease. - Acute kidney injury on chronic kidney disease stage G3b/A1. The patient has CKD from nephrosclerosis (followed by Dr. Nur). Baseline SCr ~2.00 mg/dL prior to this admission. Acute kidney injury with serum creatinine of 3.22 mg/dL on presentation is secondary to ischemic ATN related to septic shock. The patient had also been on losartan prior to admission. There was no evidence of urinary tract obstruction on renal ultrasound on 07/28/2023. I have low suspicion for other causes of NATALEE at this point. Overall, renal function has been slowly improving. SCr 3.22mg/dL on admission (07/26) and improving daily, today SCr 2.18mg/dL and patient has adequate urine output. Since the patient is not hyperkalemic, severely acidotic or volume overloaded, there is no urgent need for kidney replacement therapy Agree with current treatment. Treatment of ATN is largely supportive. Continue to keep MAP above 65 mmHg. Continue to hold ARB. - History of hypertension. Holding losartan because of hypotension and NATALEE. - Circulatory shock. The patient is being treated for septic shock attributed to right lower lobe pneumonia, Influenza infection (received tamiflu) and also receiving antibiotic for possible superimposed bacterial pneumonia. There is a concern that the patient has cardiogenic shock as well: severe LV systolic dysfunction, severe AV stenosis, acute b/l DVTs. On dobutamine gtt, heparin gtt, midodrine. Cardiology following and recommend consider transfer tertiary center.
[2023-07-31 09:48] LABS: Magnesium 2.6 mg/dL (1.6-2.6)
--- NOTE | 2023-07-31 10:23 | CASEMGMT ---
Tertiary facilities in-network with patient's insurance: [facility], [facility], [facility] , , [facility], [facility], [place] [facility], [place], [facility], [facility],
[2023-07-31] MEDS: Ensure Plus High Protein 120 ML LIQUID PO (13:22)
--- NOTE | 2023-07-31 15:23 | CHAPLAIN ---
Type of Pastoral Visit _x__ Initial Visit ___ Follow-up Visit ___ On-call Visit ___ General Patient Visit ___ Spiritual Assessment ___ Family Conference ___ Bereavement ___ Rapid Response ___ Code Blue ___ Other (describe below) Pastoral Care Referral From _x__ Patient ___ Family ___ Nurse ___ Physician ___ [employer] Case Repairer ___ Director Of Manufacturing Operations ___ Other (describe below) Sacrament/Intervention _x__ Active listening ___ Anointing ___ Zoroastrianism ___ Bereavement ___ Communion _x__ Ella exploration ___ _x__ Life review _x__ Prayer ___ Reconciliation ___ Sacrament of Sick _x__ Supportive presence ___ Wedding ___ Other (describe below) Pastoral Comments patient is welcoming and expresses his ella and how God has brought him through cancer many years ago; pt speaks of his trust in God and that is why he has very little worry or concerns; pt gives some life review and background to his ella journey; daughter is at the bedside; both are offered support and prayer; pt requests prayers for clear direction about his health and future
--- NOTE | 2023-07-31 15:44 | PN_ITS ---
Subjective Subjective Patient seen and examined. He was lying comfortably in bed. HE denied any fever, chills, cough, chest pain, palpitations, dizziness, nausea, vomiting or any other symptoms. Review of systems is otherwise negative. He remains on dobutamine drip. Review of systems is otherwise negative. Objective Data Objective Data Vital Signs: Vital Signs Temp Pulse Resp BP Pulse Ox O2 Del Method O2 Flow Rate 97.5 F L 104 H 25 H 82/62 L 98 Nasal Cannula 2 07/31/23 06:00 07/31/23 13:00 07/31/23 13:00 07/31/23 13:00 07/31/23 13:00 07/31/23 13:00 07/31/23 13:00 Oxygen Flow Rate (L/min) 2 Oxygen Delivery Method Nasal Cannula Weight: 188 lb 1 oz Body Mass Index (BMI) 26.9 Intake & Output: Intake and Output for Last 24 Hours 07/29/23 07/30/23 07/31/23 23:59 23:59 23:59 Intake Total 1455.51 / 1701.14 1458.26 / 2090.86 2254.40 / 2254.40 Output Total 850 / 900 850 / 1250 950 / 950 Balance 605.51 / 801.14 608.26 / 840.86 1304.40 / 1304.40 Medical Nutrition Assessment Dietitian: Malnutrition Criteria Met Start: 07/29/23 11:31 Freq: Status: Active Protocol: Document 07/29/23 11:31 (Rec: 07/29/23 11:32 [id number]) Nutrition Malnutrition Evidence of Malnutrition Exists Yes Evidenced By Suboptimal Energy Intake ( Severe),Physical Changes ( Moderate) Intake Problem Inadequate Oral Intake Etiology related to acute illness/poor appetite Signs/Symptoms as evidenced by PO <50% x past 3 days Status Active Problem Clinical Problem Acute Disease or Injury Related Malnutrition Etiology severe related to suboptimal appetite and acute illness Signs/Symptoms as evidenced by PO intakes <50 % of estimated needs for 1 week and severe orbital fat loss and moderate clavicle muscle loss Status Active Problem Altered Nutrient-Related Laboratory Values Etiology related to CKD Signs/Symptoms as evidenced by BUN 84/Creat 2 .54 Status Active Problem Recommendation Dietitian Recommendations/Changes Continue sodium-restricted diet for now to manage medical conditions BUN/creat high, monitor need to restrict protein and fluids once PO adequacy established with meal. RD will order 120mL EPHP TID with medpass to provide supplemental energy. Lab / Micro Data 07/31/23 04:47 07/31/23 04:47 Labs: Laboratory Results - last 24 hr 07/31/23 04:47: WBC 12.6 H, RBC 3.12 L, Hgb 8.6 L, Hct 26.8 L, MCV 85.9, MCH 27.6, MCHC 32.1, RDW Std Deviation 48.0 H, RDW Coeff of Yue 15.5 H, Plt Count 160, MPV 10.7, Immature Gran % (Auto) 1.000 H, Neut % (Auto) 88.9 H, Lymph % (Auto) 3.7 L, [place] % (Auto) 5.6, Eos % (Auto) 0.6, Baso % (Auto) 0.2, Absolute Neuts (auto) 11.2 H, Absolute Lymphs (auto) 0.46 L, Nucleated RBC % 0.9, Differential Comment SCANNED, APTT 61.1 H, Sodium 137, Potassium 3.5, Chloride 104, Carbon Dioxide 25.0, Anion Gap 8, BUN 75 H, Creatinine 2.18 H, Estim Creat Clear Calc 28.37, Est GFR (MDRD) Af Amer 38 L, Est GFR (MDRD) Non-Af 31 L, BUN/Creatinine Ratio 34.4 H, Glucose 122 H, Calcium 8.0 L, Magnesium 2.6, Total Bilirubin 1.00, AST 38 H, ALT 72 H, Alkaline Phosphatase 221 H, Total Protein 5.8 L, Albumin 1.9 L, Globulin 3.9, Albumin/Globulin Ratio 0.5 L Micro: Microbiology 07/26/23 21:08 Blood Culture (Wb) - Central Line Blood Culture - Preliminary No growth in 48 hours. 07/26/23 Unknown Blood Culture (Wb) - Central Line Blood Culture - Preliminary No growth in 48 hours. 07/27/23 07:55 Urine Catheter - Morales Urine Culture - Final Culture exhibits no growth. 07/26/23 23:45 Nasal Secretion Nasal Screen MRSA/MSSA - Final 07/26/23 23:30 Urine, Random Legionella Antigen - Final 07/26/23 23:30 Urine, Random Streptococcus pneumoniae Antigen (M - Final 07/26/23 21:10 Mucosa - Nasopharyngeal Influenza Types A,B Direct FA (DANIELA) - Final Influenzae A 07/26/23 21:10 Nasal Secretion SARS-CoV-2 Antigen (Rapid) - Final ABG Data ABG results: ABG 07/31/23 07:31 Specimen Type ZULEIKA Sample Site Not entered O2 % 2.0 VBG pH 7.41 VBG pO2 30 VBG HCO3 23 VBG Total CO2 24 VBG O2 Sat (Calc) 59 VBG Base Excess -1 POC Mix VBG pCO2 Pt Tmp 36.4 L O2 Delivery Device Not entered Rhythm Strip Rhythm Strip: Sinus Tach Rate: 101 Ectopy: PVC(s) and - (Intermittent nonsustained V. tach) Physical Exam Const alert and oriented x3 Constitutional Narrative: looks very frail HEENT normocephalic, head/scalp atraumatic, moist oral mucous membranes, oropharynx no rmal and gingiva normal Eyes PERRL and EOMs intact bilaterally Neck no lymphadenopathy, supple and no JVD Lymph Lymphatic: no lymphadenopathy noted and no lymphedema noted Resp Resp Narrative: diminished breath sounds bibasally, no wheezes or crackles. On 2L of oxygen. tachypneic Cardio Cardio Narrative: tachycardic,normal S1 and S2. Grade 3-4 ejection systolic murmur loudest at the aortic region. GI normal to inspection, nondistended, normoactive bowel sounds, soft to palpation, non-tender and non-distended Extremity normal capillary refill Extremity Narrative: bilateral LE 2+ nonpitting edema Skin General Skin Exam: no breakdown Neuro CN's II-XII intact bilaterally, no focal motor deficits, no sensory deficits noted and deep tendon reflexes 2+ bilaterally Motor Exam: strength 5/5 throughout and general weakness Psych thought process normal, cooperative and affect normal Appearance: appropriate Assessment & Plan Assessment/Plan (1) Cardiogenic shock: (2) Moderate to severe mitral regurgitation: (3) Severe aortic stenosis: (4) DVT, bilateral lower limbs: (5) NSVT (nonsustained ventricular tachycardia): (6) Influenza A with pneumonia: PLAN: Plan #Shock, cardiogenic and septic due to influenza A and superimposed bacterial pneumonia * blood cultures negative. on IV vancomycin and zosyn still. to complete a 7 day course * CXR showed right lower lobe infilrate * now of levophed. Remains on dobutamine drip due to concerns for cardiogenic shock. * Critical care and cardiology on board. Cardiology recommending transfer with [facility] facility for evaluation for TAVR as patient having difficulty being weaned off of dobutamine. No longer on Levophed. * 2D echo showed EF of 15%. * #Hypoxia due to influenza infection: On 2 L of oxygen. Breathing treatments bronchodilators. Titrate oxygen to maintain saturation above 90%. #Cardiomyopathy with heart failure with reduced action fraction * EF is 15% with stage II diastolic dysfunction and severe global dysfunction with moderate to severe mitral valve regurgitation and severe aortic stenosis. Cardiology on board. * On getting Lasix as needed. Cardiology recommended transfer to [facility] facility for TAVR. Transfer initiated. Patient accepted at [facility] pending a bed. #Thrombocytopenia: Resolving. Thought to be due to acute illness. #Elevated troponin: Thought to be due to his cardiomyopathy. Plavix discontinued but on aspirin. #Bilateral DVT of the lower extremities: On heparin drip. #Severe aortic stenosis and moderate to severe mitral valve regurgitation: As per echo. #NATALEE on CKD stage IV: Creatinine trending downward. Baseline is between 1.7-2. Nephrology on board. No need for renal replacement therapy now. Renal ultr asound showed no significant abnormalities related to obstruction hydronephrosis. #Hypertension: Hold BP meds due to hypotension. #History of testicular cancer: This was positive incidentally. Will treat with chemotherapy medication. # Hyperlipidemia: Statin. Disposition:Transfer to tertiary facility for evaluation for TAVR. Accepted at [facility] pending bed availability. Charges/Coding Visit Charges Inpatient E&M: 46384 [facility] Hosp L3
--- NOTE | 2023-07-31 17:09 | PCM.HOSP.N ---
Hospitalist Note Rapid response was called on the patient approximately 5 PM today, he was noted to be bradycardic and unresponsive, on evaluation of the patient, he was not breathing, initially I thought he had a faint pulse but then on recheck there was no pulse noted. Patient was a DNR DO NOT INTUBATE, patient bradycardia down further, it was felt that he was in PEA and due to his CODE STATUS, no medicines were administered. Patient was pronounced at 5:05 PM, his daughter was notified.
--- NOTE | 2023-07-31 17:46 | NURSING ---
07/31/2023 1655, Pt assisted back to bed from [facility], pt went unresponsive, bradycardic, and stopped breathing. Pt is a DNR DNI, Rapid response called, discussed with physicians,no actions were taken. Time of 1705, daughter Marisa notified.
--- NOTE | 2023-07-31 19:30 | NURSING ---
Pt's Marisa orellana, and other family exit room, thank staff for their excellent care and then provided home information. Family took pt's belongings. home contacted and given appropriate information. Pickup in about 2hrs.
--- NOTE | 2023-08-01 08:02 | EXP.PCM_ITS ---
Preliminary Cause of Preliminary Cause of Preliminary Cause of : acute cardiopulmonary arrest due to cardiogenic shock from acute combined heart failure Date of Admission: 07/26/23 Date of : 07/31/23 Principle Diagnosis acute combined heart failure cardiogenic shock septic shock nonsustained VT severe aortic stenosis Problem List: Active and Suspected Problems (Updated 07/31/23 @ 09:[address] Ana Watt MD) NSVT (nonsustained ventricular tachycardia) (Acute) Cardiogenic shock (Acute) Moderate to severe mitral regurgitation (Acute) Severe aortic stenosis (Acute) DVT, bilateral lower limbs (Acute) Diastolic dysfunction (Acute) Cardiomyopathy (Acute) NATALEE (acute kidney injury) (Acute) Influenza A with pneumonia (Acute) Elevated troponin I level (Acute) Transaminitis (Acute) Leukocytosis (Acute) Influenza A H1N1 infection (Acute) Thrombocytopenia (Acute) Hypoxia (Acute) Septic shock (Acute) D-dimer, elevated (Acute) Elevated troponin (Acute) Hypoalbuminemia (Acute) Pneumonia of both lower lobes (Acute) Encephalopathy (Acute) Hospital Course Patient was a 78-year-old male with an extensive past medical history as outlined was admitted through the ED on 07/26/2023 with a complaint of shortness of breath, lower extremity swelling, cough and subjective fever. He had recently been placed on Lasix but this has been discontinued because of impaired kidney function. On admission he was tachypneic and hypotensive. He had elevated white cell count of 14.3 and platelets were low at 124. Creatinine was 3.22 and lactic acid was also elevated. Chest x-ray showed bilateral pneumonia and possible pleural effusions. He was initially placed on IV Rocephin and azithromycin for community-acquired pneumonia. However he tested positive for influenza. He had a right subclavian IV placed in the ED. He was admitted to the ICU because of the low blood pressures. He was started on Levophed on account of hypotension. He was managed for septic shock due to right lower lobe pneumonia due to influenza. He was also managed for NATALEE on CKD and congestive heart failure. Duplex of the lower extremities done was positive for bilateral DVT. 2D echo showed EF of 15% with severe aortic stenosis and moderate to severe mitral valve regurgitation. Hospital course was complicated by refractory cardiogenic shock and septic shock. Patient was able to wean off Levophed but had to be started on dobutamine which he could not be weaned off of. In light of his severe aortic stenosis, moderate-severe mitral valve regurgitation and protracted hospital course, cardiology recommended the patient be transferred to tertiary facility for evaluation for TAVR. Patient was accepted at [facility] on 07/31/2023. Plan was for patient to be transferred to [facility] pending bed availability. However in the early evening of 07/31/2023, patient went bradycardic and became unresponsive. No pulse was detected. In light of his CODE STATUS being DNR CCA, no attempts at CPR were made. He went into PEA and was pronounced at 5:05 PM. Cause of is acute cardiopulmonary arrest due to bradycardia in the setting of cardiogenic shock. 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 Visit Charges Inpatient E&M: [id number] Disch Hosp
== END 2023-07-31 17:05 | DRG 871 ==
LOC: ED 20:34 → ICU 22:22
PROVIDERS: Internal Medicine; Internal Medicine Cardiovascular Disease; Internal Medicine Critical Care Medicine; Admitting Provider Internal Medicine; Emergency Provider Emergency Medicine; PCP Family Medicine; Visit Provider Student in an Organized Health Care Education/Training Program
DX: A41.9 Sepsis, unspecified organism (principal); R65.21 Severe sepsis with septic shock; N17.0 Acute kidney failure with tubular necrosis; E43 Unspecified severe protein-calorie malnutrition; J10.00 Influenza due to other identified influenza virus with unspecified type of pneumonia; G93.41 Metabolic encephalopathy; E87.20 Acidosis, unspecified; N18.4 Chronic kidney disease, stage 4 (severe); I13.0 Hypertensive heart and chronic kidney disease with heart failure and stage 1 through stage 4 chronic kidney disease, or unspecified chronic kidney disease; I82.403 Acute embolism and thrombosis of unspecified deep veins of lower extremity, bilateral; I50.42 Chronic combined systolic (congestive) and diastolic (congestive) heart failure; I42.9 Cardiomyopathy, unspecified; R57.0 Cardiogenic shock; D63.1 Anemia in chronic kidney disease; D69.6 Thrombocytopenia, unspecified; I46.8 Cardiac arrest due to other underlying condition; I08.0 Rheumatic disorders of both mitral and aortic valves; E88.09 Other disorders of plasma-protein metabolism, not elsewhere classified; E78.5 Hyperlipidemia, unspecified; M19.90 Unspecified osteoarthritis, unspecified site; Z92.21 Personal history of antineoplastic chemotherapy; N13.9 Obstructive and reflux uropathy, unspecified; Z92.3 Personal history of irradiation; R74.01 Elevation of levels of liver transaminase levels; R09.02 Hypoxemia; N40.0 Benign prostatic hyperplasia without lower urinary tract symptoms; Z66 Do not resuscitate; Z79.02 Long term (current) use of antithrombotics/antiplatelets; Z79.82 Long term (current) use of aspirin; Z68.26 Body mass index [BMI] 26.0-26.9, adult
CPT/HCPCS: 71045; 71046; 76770; 80048; 80053; 80202; 80307; 81001; 82550; 82803; 83605; 83735; 83880; 84100; 84134; 84443; 84484; 85025; 85027; 85379; 85730; 87040; 87081; 87086; 87449; 87804; 87811; 93005; 93306; 93970; 94762; 97110; 97112; 97162; 97166; 97530; 97535; 97802; 97803; 99284; J7040; J7050; J7120; Q9957; A4216; J1940